=== PATIENT | female | born 1940 | race African-American/Black ===

== ENCOUNTER 2024-09-11 07:57 | Outpatient (CLI) | payer MEDICARE, SELFPAY ==
--- OUTSIDE RECORDS SUMMARY | 2024-09-18 11:35 | XMS_ITS | Data Portability ---
Author Organization [facility], Main Office Address [address] [place] [address] Assessment Encounter Date Assessment Date Assessment LastModified by Organization Details LastModified Time 07/03/2024 07/03/2024 Time spent with patient included: preparing to see patient by reviewing tests, obtaining and reviewing history, medical examination and evaluation, counseling and educating the patient, ordering medications and tests, documenting clinical information in EHR, independently interpreting results and communicating results to the patient for a total of 52 minutes. Not available 07/03/2024 12:07:29 Plan of Treatment Reminders Order Date Submit Date Provider Last Modified By Organization Details Last Modified Time Details Appointments None recorded. Lab None recorded. Referral None recorded. Procedures None recorded. Surgeries None recorded. Imaging home sleep study - Please call patient to arrange. [email or web address] [facility] ([facility]), [address] [place] [address], [address], 12:21:26 Medication Orders None recorded. Patient TargetsNo targets recorded. Patient Instructions Encounter Date Encounter Id Patient Instructions Last Modified By Organization Details Last Modified Time 07/03/2024 [id number] complete PFT w/ post bronchodilator spirometry* - Please call patient to schedule. WENDI [id number] per [facility] payor website, ref #[id number]. MYKE Not available 08/03/2024 11:02:29 Reason for Referral None Reported. Results Created Date Observation Date Name Description Value Unit Range Abnormal Flag Note LastModifiedBy Organization Detail LastModifiedTime 07/05/20 24 06/17/2024 CT, face, w/o contr ast No observ ation record ed. [email or web address] Not Available 2023 13:57:08 11/21/20 24 07/17/2024 compl ete PFT w/ post [facility] hodil ator jojo metry * No observ ation record ed. [facility] [place] [id number] [facility] [address], [place], [address], 08/03/2024 11:02:29 Result Notes None recorded. Problems Name Problem SNOMED Code Status Onset Date Resolution Date Notes Provider Name and Address Organization Details Recorded Time Dyspnea on exertion 97971583 Active 024 Nano Doss NP [address], [address], [place], [address] , [employer] 11:35:49 Sleep apnea 46855225 Active 024 Nano Doss NP [address], [address], [place], [address] , [employer] 11:41:31 Problem Notes None recorded. Procedures Surgical History None recorded. Imaging Results Imaging Date Name Status LastModified by Organization Details LastModified Time 06/17/2024 CT, face, w/o contrast completed Information not available 07/05/2024 13:57:08 07/17/2024 complete PFT w/ post bronchodilator spirometry* completed [place] [address] [facility] [address], [place], [address], 08/03/2024 11:02:29 Procedure Notes None recorded. Medical Equipment None Reported. Allergies No known drug allergies Medications Name Sig Start Date Stop Date Status Note LastModified by Organization Details LastModified Time atorvastati n 20 mg tablet TAKE 1 TABLET BY MOUTH IN THE MORNING 2023 active Not Available Not Available Not Avai lable albuterol sulfate 2.5 mg/3 mL (0.083 %) solution for nebulizatio n INHALE 3 ML BY NEBULIZAT ION 3 TIMES A DAY active Not Available Not Available No t Available prednisone 20 mg tablet TAKE 2 TABLETS BY MOUTH DAILY FOR 4 DAYS 07/03 completed Not Available Not Available Not Available potassium chloride ER 10 mEq tablet,exte nded release TAKE 1 TABLET BY MOUTH EVERY DAY active Not Available Not Available No t Available chlorthalid one 25 mg tablet TAKE 1 TABLET BY MOUTH DAILY active Not Available Not Available No t Available tramadol 50 mg tablet TAKE 1 TABLET BY MOUTH TWICE A DAY NEEDED FOR PAIN 07/03 completed Not Available Not Available Not Available amlodipine 10 mg tablet TAKE 1 TABLET BY MOUTH EVERY DAY active Not Available Not Available No t Available docusate sodium 100 mg capsule TAKE 1 PILL IN THE MORNING AND 1 PILL IN THE EVENING NEEDED FOR CONSTIPAT ION. active Not Available Not Available No t Available hydroxyzine HCl 25 mg tablet TAKE 1 TABLET BY MOUTH AT BEDTIME NEEDED active Not Available Not Available No t Available methylpredn isolone 4 mg tablets in a dose pack FOLLOW PACKAGE DIRECTION S 07/03 completed Not Available Not Available Not Available albuterol sulfate HFA 90 mcg/actuati on aerosol inhaler INHALE 2 PUFFS BY MOUTH EVERY 4 HOURS active Not Available Not Available No t Available docusate sodium 250 mg capsule TAKE ONE BY MOUTH TWICE DAILY NEEDED FOR CONSTIPAT ION 07/03 completed Not Available Not Available Not Available memantine 10 mg tablet TAKE 1 TABLET BY MOUTH DAILY 07/03 completed Not Available Not Available Not Available Advair HFA 115 mcg-21 mcg/actuati on aerosol inhaler TAKE 2 PUFFS BY MOUTH TWICE A DAY active Not Available Not Available No t Available aspirin 81 mg capsule Take 1 capsule every day by oral route. active Not Available Not Available No t Available Vitals Date Recorded Body weight Body mass index (BMI) Body height Body temperature Heart rate Oxygen saturation Oxygen saturation in Arterial blood by Pulse oximetry Systolic blood pressure Diastolic blood pressure Provider Name and Address Organization Details Last Updated DateTime 4 08197.2 2 g 27.5 kg/m2 172.72 cm 98 [degF] 95 /min 95 % 95 % 112 mm[Hg] 62 mm[Hg] Shannon Coleman MA [facility] 11:24:49 Social History Question Answer Notes LastModified by Organizat ion Details LastModified Time Tobacco Smoking Status Never Smoker Shannon Coleman MA null, [facility] 07/03/2024 11:20:38 What Is Your Level Of Alcohol Consumption? Moderate Information not available 07/03/2024 What Is Your Level Of Caffeine Consumption? Moderate Information not available 07/03/2024 In The 14 Days Before Symptom Onset, Have You Had Close Contact With A Laboratory-confir med COVID-19 While That Case Was Ill? No Information not available 07/03/2024 In The 14 Days Before Symptom Onset, Have You Had Close Contact With A Person Who Is Under Investigation For COVID-19 While That Person Was Ill? No Information not available 07/03/2024 Are You Currently Employed? No Retired Information not available 07/03/2024 What Type Of Diet Are You Following? REGULAR Information not available 07/03/2024 Do You Have An Electrostatic Air Filter? No Information not available 07/03/2024 Do You Have A Humidifier? No Information not available 07/03/2024 Do You Have Moisture Problems In Your Home? No Information not available 07/03/2024 What Was The Date Of Your Most Recent Tobacco Screening? 07/03/2024 Information not available 07/03/2024 Do You Have Any Pets? No Information not available 07/03/2024 Do You Use Your Seat Belt Or Car Seat Routinely? Yes Information not available 07/03/2024 Do You Have Smoke And Carbon Monoxide Detectors In Your Home? Yes Information not available 07/03/2024 Are You Passively Exposed To Smoke? No Information no t available 07/03/2024 Do You Feel Stressed (tense, Restless, Nervous, Or Anxious, Or Unable To Sleep At Night)? [id number] Information not available 07/03/2024 Do You Use Any Illicit Or Recreational Drugs? No Information not available 07/03/2024 Do You Use Sunscreen Routinely? No Information not available 07/03/2024 Have You Recently Traveled Abroad? No Information not available 07/03/2024 Do You Have Any Dietary Restrictions? Yes Information not available 07/03/2024 Sex: Unknown Functional Status Question Answer Note LastModified by Organizat ion Details LastModified Time What is your exercise level? Occasional Information not available 07/03/2024 Mental Status None recorded. Family History Nothing Reported. Medical History No medical history recorded. Gynecological HistoryNo gynecological history recorded. Obstetrics History GPAL:G 0 P 0 0 0 0 Past Encounters Encounter ID Performer Location Encounter Start Date Encounter Closed Date Diagnosis/Indication Diagnosis SNOMED-CT Code Diagnosis ICD10 Code Diagnosis Note [id number] Nano DossJARRETT [facility] [address] [place] [address] 07/03/2024 10:47:40 07/04/2024 15:23:46 Dyspnea on exertion 17730523 R06.09 Continue use of inhaler/ne b prnPFT for baseline-w ill try to get old records for pft. labs and CXRDecline labs-will try to obtain old lab work to check EOS Sleep apnea 61301732 G47 .30 G47.33 G47.34 Home sleep study order todayDiscu ssed sleep hygeineAdv ised good sleep habits and patterns:- Set a goal for at least 7 to 8 hours of sleep time per day-Use the bed mainly for sleep and to go to bed only when tired. If unable to fall asleep after 30 minutes, patient should get out of bed but should not engage in any activity that requires sustained mental alertness. -Maintain a bedtime and wake-up time even on weekends or day off of work.-Avoi d excessive naps during the daytime. If a nap is necessary, limit to no more than 30 minutes.-M inimize enviroment al noise, bright lights, and extremties in bedroom temperatur es.-Avoid alcohol, caffeinate d beverages, and nicotine products for at least 6 hours prior to bedtime.-A void strenuous exercise and large meals for at least 4 hours prior to bedtime.-D iscussed reportable signs and symptoms of concern Health Concerns Section Related Observation LastModified by Organization Detai ls LastModified Time None Recorded Concern Status LastModified by Organization Details LastModified Time None Recorded Advance Directives Directive None Recorded Payers Encounter Date Sequence Insurance Name Policy Number Policy Marie Covered Member ID Marie Member ID Guarantor Name 07/03/2024 1 [facility] (MEDICARE REPLACEMENT/A DVANTAGE - HMO) [id number] Heidi Barker [id number] Heidi Barker Notes Date Note Type Note Provider Name and Address Organization Details Recorded Time 07/03/2024 text/html COPDReported bypatient.Severity:mil d; uses nebulizer/inhaler an average of 3 times/week lately Duration:attacks are infrequent Onset/Timing:intermitt ent Modifying Factors:relieved with rest Associated Symptoms:no excessive daytime sleepiness; no arousals from sleep; no decrease in exercise capacity; no coughing up sputum; no cough; no fever; no wheezing; no weight loss; no depression;snoring;dys pnea exertional;fatigueNote s:family with patient today notes that feel more sleep apnea related-when discussing with patient she notes she only uses her inhaler in the morning due to the feeling she is sob at that time. She notes a [facility] of 2, notes she doesn't use her neb or inhaler unless it is first thing in the morning. No difficulty dressing or feeding herself.Obstructive Sleep ApneaReported bypatient.Severity:wor sening Timing:gradual; daily Duration:frequent Context:hypertension; gastroesophageal reflux disease; observed apnea Associated Symptoms:no morning headache; no postnasal drip; no dysphagia; no night sweats; no suddenly falling asleep during the day; no napping; no impaired work performance; no nasal congestion; no hyponasal speech; no mouth breathing; no hyperactivity; normal concentration; no irritability;morning dry mouth;awakening short of breath;daytime sleepiness;loud snoring;gasping for air;witnessed apnea;amnesiaNotes:Has been waking up for years choking and gasping-has even went to ER due to feeling like she can't get her breath-she does have an inhaler that she uses most only when waking, 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 Nano Doss NP [address] [facility] [address], [place], [address], [facility] 07/03/2024 12:08:32 OBGyn Episode No OBEpisode recorded.
--- OUTSIDE RECORDS SUMMARY | 2024-09-18 11:35 | XMS_ITS | Continuity of Care Document ---
Author Organization [facility] [place] Address [address] [address] Assessment Encounter Date Assessment Date Assessment LastModified by Organization Details LastModified Time 07/03/2024 07/03/2024 Time spent with patient included: preparing to see patient by reviewing tests, obtaining and reviewing history, medical examination and evaluation, counseling and educating the patient, ordering medications and tests, documenting clinical information in EHR, independently interpreting results and communicating results to the patient for a total of 52 minutes. [email or web address] Not available 07/03/2024 12:07:29 Plan of Treatment Reminders Order Date Submit Date Provider Last Modified By Organization Details Last Modified Time Details Appointments None recorded. Lab None recorded. Referral None recorded. Procedures None recorded. Surgeries None recorded. Imaging home sleep study - Please call patient to arrange. [email or web address] [facility] ([facility]), [address] [place] [address], [address], 12:21:26 Medication Orders None recorded. Patient TargetsNo targets recorded. Patient Instructions Encounter Date Encounter Id Patient Instructions Last Modified By Organization Details Last Modified Time 07/03/2024 [id number] complete PFT w/ post bronchodilator spirometry* - Please call patient to schedule. WENDI [id number] per [facility] payor website, ref #[id number]. MYKE Not available 08/03/2024 11:02:29 Reason for Referral None Reported. Results Created Date Observation Date Name Description Value Unit Range Abnormal Flag Note LastModifiedBy Organization Detail LastModifiedTime 07/05/2006/17/2024 CT, face, w/o contr ast No observ ation record ed. [email or web address] Not Available 2023 13:57:08 08/03/20 24 07/17/2024 compl ete PFT w/ post [facility] hodil ator jojo metry * No observ ation record ed. [facility] [address], [place], [address], 08/03/2024 11:02:29 Result Notes None recorded. Problems Name Problem SNOMED Code Status Onset Date Resolution Date Notes Provider Name and Address Organization Details Recorded Time Dyspnea on exertion 87798116 Active 024 Nano Doss NP [address], [address], [place], [address] , [facility] 11:35:49 Sleep apnea 63013275 Active 024 Nano Doss NP [address], [place], [address] , [facility] 11:41:31 Problem Notes None recorded. Medical Equipment None Reported. [...] Address Organization Details Last Updated DateTime 4 13787.2 2 g 27.5 kg/m2 172.72 cm 98 [degF] 95 /min 95 % 95 % 112 mm[Hg] 62 mm[Hg] Shannon Coleman MA [facility] 11:24:49 Social History Question Answer Notes LastModified by Organizat ion Details LastModified Time Tobacco Smoking Status Never Smoker Shannon Coleman MA null, [facility] 07/03/2024 11:20:38 What Is Your Level Of [...] Anxious, Or Unable To Sleep At Night)? [id number] Information not available 07/03/2024 Do You Use [...] SNOMED-CT Code Diagnosis ICD10 Code Diagnosis Note [id number] Nano Doss NP [facility] Pulmonolo gy [address] [address] 07/03/2024:47:40 07/04/2024 15:23:46 Dyspnea on exertion 24862307 R06.09 Continue use of inhaler/ne b prnPFT for baseline-w ill try to get old records for pft. labs and CXRDecline labs-will try to obtain old lab work to check EOS Sleep apnea 02365285 G47 .30 G47.33 G47.34 Home sleep study [...] by Organization Details LastModified Time None Recorded Payers Encounter Date Sequence Insurance Name Policy Number Policy Marie Covered Member ID Marie Member ID Guarantor Name 07/03/[address] 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 Nano Doss NP [address] [facility], [place] [address], [place], [address], [facility] [email or web address] 07/03/2024 12:08:32 OBGyn Episode No OBEpisode recorded.
--- OUTSIDE RECORDS SUMMARY | 2024-09-18 11:36 | XMS_ITS | Encounter Summary ---
Author Organization [facility] Address [address] [place] [address] Care Team Providers Care Airline Customer Service Agent Name Role Phone Stephen Anguiano MD Primary Care Provider Encounter Details Date Type Department Care Team (Latest Contact Info) Description 07/10/2024 Travel Social History Tobacco Use Types Packs/Day Years Used Date Smoking Tobacco: Never Alcohol Use Standard Drinks/Week Comments No 0 (1 standard drink = 0.6 oz pur e alcohol) Sex and Gender Information Value Date Recorded Sex Assigned at Not on file Gender Identity Not on file Sexual Orientation Not on file documented as of this encounter Plan of Treatment Not on file documented as of this encounter Visit Diagnoses Not on filedocumented in this encounter Care Teams Airline Customer Service Agent Relationship Specialty Start Date End Date Stephen Anguiano MD [address] [place] [address] PCP - General 12/27/15 documented as of this encounter
--- OUTSIDE RECORDS SUMMARY | 2024-09-18 11:36 | XMS_ITS | Encounter Summary ---
Author Organization [facility] Address [facility]. [place], [place] [address] [place] [id number] Care Team Providers Care Batch Dumper Name Role Phone None, Provider Primary Care Provider Unavaila ble Reason for Visit * Reason Comments Shortness Of Breath Cough Encounter Details Date Type Department Care Team (Late st Contact Info) Description 03/03/2024 8:56 AM CDT - 03/03/2024 12:24 PM CDT Emergency [facility] [place] [address] Blanca Gutierrez MD [address] [place] [address] [id number] Shortness Of Breath ; Cough Discharge Disposition: Home or Self Care (Routine Discharge) Social History Tobacco Use Types Packs/Day Years Used Date Smoking Tobacco: Never Smokeless Tobacco: Former Chew Tobacco Cessation:Counseling Given: Not Answered Comments No Sex and Gender Information Value Date Recorded Sex Assigned at Not on file Legal Sex Female 8:45 AM CDT Gender Identity Not on file Sexual Orientation Not on file documented as of this encounter Last Filed Vital Signs Vital Sign Reading Time Taken Comments Blood Pressure 141/70 03/03/2024 12:00 PM CDT Pulse 88 03/03/2024 12:00 PM CDT Temperature 37 ??C (98.6 ??F) 03/03/2024 8:51 AM CDT Respiratory Rate 14 03/03/2024 12:00 PM CDT Oxygen Saturation 98% 03/03/2024 12:00 PM CDT Inhaled Oxygen Concentration - - Weight 86.2 kg (190 lb) 03/03/2024 8:51 AM CDT Height 172.7 cm (5' 8 ) 03/03/2024 8:51 AM CDT Body Mass Index 28.89 03/03/2024 8:51 AM CDT documented in this encounter Discharge Instructions * Attachments The following attachments cannot be sent through Care Everywhere. * Chronic Obstructive Pulmonary Disease (COPD) Discharge Instructions (Pashto) documented in this encounter Medications at Time of Discharge predniSONE (DELTASONE) 20 MG tablet Take 2 tablets (40 mg total) by mouth daily for 5 days. 10 tablet 03/03/2024 03/08/2024 documented as of this encounter ED Notes * Mayelin Akins RN - 03/03/2024 12:24 PM CDT DC papers reviewed with pt & pts daughter. All questions/concerns addressed prior to dc. * Blanca Gutierrez MD - 03/03/2024 9:11 AM CDT Chief Complaint Chief Complaint Patient presents with Shortness Of Breath Cough History of Present Illness This patient is an 83yo female with PMH HTN, COPD (no home O2) who presents to the ED for evaluation of a cough and dyspnea. She developed a worsening nonproductive cough and intermittent dyspnea yesterday. These were worse today which prompts her visit. Otherwise, the patient notes tightness in her chest when she coughs and a pain to the right TMJ (chronic daily issue) and a headache but denies fever/chills, abdominal pain, or GI symptoms. Medical History ALLERGIES: Review of patient's allergies indicates: No Known Allergies MEDICATIONS: Prior to Admission medications Medication Sig Start Date End Date Taking? Authorizing Provider predniSONE (DELTASONE) 20 MG tablet Take 2 tablets (40 mg total) by mouth daily for 5 days. Yes Blanca Gutierrez MD PAST MEDICAL HISTORY: Past Medical History: Diagnosis Date Constipation COPD (chronic obstructive pulmonary disease) ([facility] H[facility]/HCC) Dementia without behavioral disturbance ([facility]) Hypercholesteremia Hypertension PAST SURGICAL HISTORY: History reviewed. No pertinent surgical history. FAMILY HISTORY: No family history on file. SOCIAL HISTORY: Social History Tobacco Use Smoking status: Never Smokeless tobacco: Former Types: Chew Review of Systems Review of Systems Constitutional: Negative. HENT: Negative. Respiratory: Positive for cough, chest tightness and shortness of breath. Cardiovascular: Positive for chest pain. Negative for palpitations and leg swelling. Gastrointestinal: Negative. Musculoskeletal: Negative. Skin: Negative. Neurological: Positive for headaches. Negative for dizziness, syncope, facial asymmetry, speech difficulty, weakness, light-headedness and numbness. All other systems reviewed and are negative. Physical Exam Filed Vitals: 03/03/24 1005 03/03/24 1030 03/03/24 1130 03/03/24 1200 BP: (!) 160/64 130/83 (!) 158/72 (!) 141/70 Pulse: 76 77 76 88 Resp: 16 18 13 14 Temp: TempSrc: SpO2: 98% 99% 97% 98% Weight: Height: Physical Exam Vitals and nursing note reviewed. Constitutional: Appearance: Normal appearance. She is well-developed. HENT: Head: Normocephalic and atraumatic. Nose: Nose normal. Mouth/Throat: Mouth: Mucous membranes are moist. Eyes: Conjunctiva/sclera: Conjunctivae normal. Pupils: Pupils are equal, round, and reactive to light. Neck: Vascular: No JVD. Trachea: No tracheal deviation. Cardiovascular: Rate and Rhythm: Normal rate and regular rhythm. Heart sounds: Normal heart sounds. Pulmonary: Effort: Pulmonary effort is normal. Breath sounds: Normal breath sounds. Abdominal: General: There is no distension. Palpations: Abdomen is soft. There is no mass. Tenderness: There is no abdominal tenderness. There is no guarding or rebound. Musculoskeletal: General: Normal range of motion. Cervical back: Normal range of motion and neck supple. Skin: General: Skin is warm and dry. Capillary Refill: Capillary refill takes less than 2 seconds. Neurological: General: No focal deficit present. Mental Status: She is alert and oriented to person, place, and time. Sensory: No sensory deficit. Motor: No weakness. Diagnostic Studies / Procedures ELECTROCARDIOGRAMS: I have interpreted the patient's EKG timed 09:05 as NSR at rate of [address]/T changes. No old EKG available for comparison. I have interpreted the patient's EKG timed 11:25 as NSR at rate of [address]/T changes. No significant change compared with previous. Results for orders placed or performed during the hospital encounter of 03/03/24 [address] 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 No ischemic changes Consider Left Atrial Abnormality ECG 12 lead Narrative [facility] [address] [facility] Test Date: 2024-03-03 Pat Name: HEIDI BARKER Department: 41 Room: [id number] Gender: Female Commodities Trader: [id number] : 1940 Requested By: BLANCA GUTIERREZ Order Number: [id number] Reading MD: Raghu Xiao Measurements Intervals [place] Rate: 72 P: 2 TN: 190 QRS: 61 QRSD: 97 T: 79 QT: 411 QTc: 453 Interpretive Statements SINUS RHYTHM Compared to ECG 03/03/2024 09:05:49 Sinus arrhythmia no longer present First degree AV block no longer present No ischemic changes Preliminary EKG Interpretation by Juan Antonio Gutierrez M.D. LABORATORY STUDIES: Results for orders placed or performed during the hospital encounter of 03/03/24 CBC W/DIFF AUTOMATED Result Value Ref Range WBC 7.06 4.5 - 11.0 x10'3/uL RBC 4.61 4.20 - 5.40 x10'6/uL HGB 13.8 12.0 - 16.0 G/DL HCT 42.7 38.0 - 48.0 % MCV 92.6 81.0 - 99.0 FL MCH 29.9 27.0 - 31.0 PG MCHC 32.3 32.0 - 36.0 G/DL RDW 14.3 11.5 - 14.5 % PLT 281 130 - 400 x10'3/uL MPV 11.4 9.3 - 12.2 FL DIFFERENTIAL TYPE AUTOMATED DIFFERENTIAL NEUTROPHILS 41.9 % LYMPHOCYTES 36.8 % MONOCYTES 5.9 % EOSINOPHILS 13.7 % BASOPHILS 1.4 % IMMATURE GRANS 0.3 % ABS. NEUTROPHILS 2.95 1.80 - 7.70 x10'3/uL ABS. LYMPHOCYTES 2.60 1.00 - 4.80 x10'3/uL ABS. MONOCYTES 0.42 0.24 - 0.86 x10'3/uL ABS. EOSINOPHILS 0.97 (H) 0.04 - 0.36 x10'3/uL ABS. BASOPHILS 0.10 (H) 0.01 - 0.08 x10'3/uL ABS. IMMATURE GRANULOCYTES 0.02 0.00 - 0.49 x10'3/uL PROTIME/INR, VENOUS Result Value Ref Range PROTIME 10.9 10.2 - 12.9 SEC INR 0.9 PARTIAL THROMBOPLASTIN TIME,PTT Result Value Ref Range PTT 30.2 25.1 - 36.5 SEC COMPREHENSIVE METABOLIC PANEL Result Value Ref Range GLUCOSE 100 (H) 70 - 99 MG/DL BUN 15 7 - 18 MG/DL CREATININE S/P/B 0.91 0.55 - 1.02 MG/DL SODIUM S/P/B 143 136 - 145 MMOL/L POTASSIUM S/P/B 3.5 3.5 - 5.1 MMOL/L CHLORIDE S/P/B 110 (H) 100 - 108 MMOL/L CO2 27.4 21 - 32 MMOL/L CALCIUM S/P/B 9.7 8.5 - 10.1 MG/DL BILIRUBIN TOTAL S/P/B 0.8 0.2 - 1.2 MG/DL TOTAL PROTEIN S/P/B 7.1 6.4 - 8.2 G/DL ALBUMIN S/P/B 3.6 3.4 - 5.0 G/DL AST 25 15 - 37 U/L ALT 31 14 - 55 U/L ALKALINE PHOSPHATASE S/P/B 68 50 - 136 U/L ANION GAP 5.6 5 - 15 MMOL/L BUN CREATININE RATIO 16.4 6 - 26 A/G RATIO 1.0 1.0 - 2.0 RATIO GFR ESTIMATE 62 (L) >90 ML/MIN/1.73 M2 TROPONIN, QUANT Result Value Ref Range TROPONIN I HIGH SENSITIVITY 10 <54 ng/L PRO-BRAIN NATRIURETIC PEPTIDE Result Value Ref Range PRO-B TYPE NATRIURETIC PEPTIDE 56 <450 PG/ML MAGNESIUM Result Value Ref Range MAGNESIUM 2.2 1.8 - 2.4 MG/DL TSH W/REFLEX Result Value Ref Range TSH 3.400 0.358 - 3.74 uIU/ML TROPONIN, QUANT Result Value Ref Range TROPONIN I HIGH SENSITIVITY 13 <54 ng/L IMAGING STUDIES XR CHEST PORTABLE Final Result by User, [id number] (03/03 940) EXAMINATION: CHEST RADIOGRAPH SINGLE VIEW Exam date/time: 03/03/2024 9:14 AM Reason For Exam: Shortness of breath Comparison: None Technique: Upright AP view of the chest Findings: Heart size normal. Proximal airways unremarkable. No suspicious pulmonary lesion, pneumothorax, or pleural effusion. Atherosclerosis. Calcified granulomas indicate healed granulomatous disease. =====IMPRESSION:===== No acute findings. Ordered By: CORRINA HERNANDEZ Interpreted By: Kilo Davis, 03/03/2024 9:29 AM ED Course / Medical Decision Making The patient rested comfortably throughout her ED stay on room air. She appears well. Diagnostic studies are unremarkable. I suspect a mild COPD exacerbation. We will plan for discharge home with a short course of prednisone and primary care followup as needed. Medical Decision Making Problems Addressed: COPD exacerbation ([facility]): acute illness or injury with systemic symptoms Amount and/or Complexity of Data Reviewed Independent Historian: Details: The patient's daughter provides a large portion of the HPI. Labs: ordered. Decision-making details documented in ED Course. Details: Negative troponin. Radiology: ordered. Decision-making details documented in ED Course. Details: No radiographic cause of the patient's symptoms. ECG/medicine tests: ordered and independent interpretation performed. Decision- making details documented in ED Course. Details: No evidence of ischemia or arrhythmia. Risk Prescription drug management. Clinical Impression COPD exacerbation ([facility]) (Primary) Disposition: Discharge Blanca Gutierrez MD 03/06/24 2256 * Corrina Hernandez PA-C - 03/03/2024 8:56 AM CDTSummary: [place], [place] EMERGENCY DEPARTMENT ENCOUNTER Medical Screening Examination 03/03/24 8:56 AM Chief Complaint : Shortness Of Breath and Cough HPI : Heidi Barker is a 83-year-old female who presents c/o sob. Albuterol without relief Vital Signs: Filed Vitals: 03/03/24 0851 BP: (!) 167/102 Pulse: 98 Resp: 20 Temp: 98.6 ??F (37 ??C) TempSrc: Oral SpO2: 98% Weight: 86.2 kg (190 lb) Height: 1.727 m (5' 8 ) Physical exam: A brief physical exam was completed to facilitate/expedite patient care. Hansen findings include: stable Plan: Labs EKG & Imaging was ordered to facilitate patient care. CORRINA HERNANDEZ PA-C 03/03/2024 Corrina Hernandez PA-C 03/03/24 0856 Cosigned by Blanca Gutierrez MD at 03/06/2024 6:44 PM CDT * Minerva Ritchie RN - 03/03/2024 8:50 AM CDT Patient to ED with c/o SOB since yesterday. Patient has hx of COPD--took 3 breathing treatments yesterday with some relief. Patient reports worsening of sx this am. Denies fevers. Stated nonproductive cough. documented in this encounter Plan of Treatment Not on file documented as of this encounter Procedures Procedure Name Priority Date/Time Associated Diagnosis Comments ECG 12-LEAD Routine 03/03/2024 11:25 AM CDT TROPONIN, QUANT STAT 03/03/2024 11:22 AM CDT XR CHEST PORTABLE STAT 03/03/2024 9:2 8 AM CDT TSH W/REFLEX STAT 03/03/2024 9:23 AM CDT PRO-BRAIN NATRIURETIC PEPTIDE STAT 03/03/2024 9:23 AM CDT PARTIAL THROMBOPLASTIN TIME,PTT STAT 03/03/2024 9:23 AM CDT PROTHROMBIN TIME, VENOUS STAT 03/03/2024 9:23 AM CDT COMPREHENSIVE METABOLIC PANEL STAT 03/03/2024 9:23 AM CDT CBC W/DIFF AUTOMATED STAT 03/03/2024 9:23 AM CDT TROPONIN, QUANT STAT 03/03/2024 9:23 AM CDT MAGNESIUM STAT 03/03/2024 9:23 AM CDT ECG 12-LEAD Routine 03/03/2024 9:05 AM CDT documented in this encounter Results * ECG 12 lead (03/03/2024 11:25 AM CDT) 03/03/2024 11:2 5 AM CDT Narrative [facility] - 03/03/2024 4:32 PM CDT ?[facility] ? [address], [place] ? Test Date: ?2024-03-03 Pat Name: ? EATHER KASSANDRA ?Department: ?? 41 ? Room: ? [id number] Gender: ? Female ? 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 [id number] : ?1940 ? Requested By: BLANCA WEEMSFER Order Number: [id number] ? Reading MD: ?? Pouyan Arman ? Measurements Intervals ?[place] ? Rate: ? 72 ? P: ?2 TN: ? 190 ?QRS: ?61 QRSD: ? 97 ? T: ?79 QT: ? 411 ? QTc: ?453 ? Interpretive Statements SINUS RHYTHM Compared to ECG 03/03/2024 09:05:49 Sinus arrhythmia no longer present First degree AV block no longer present No ischemic changes Preliminary EKG Interpretation by Juan Antonio Gutierrez M.D. 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 us Blanca Gutierrez MD ECG ORDERABLES Final Re sult [facility] ([facility]) RAD * TROPONIN, QUANT (03/03/2024 11:22 AM CDT) Pathologist [facility] TROPONIN I HIGH SENSITIVITY 13 <54 ng/L 03/03/2024 11:55 AM CDT [facility] Comment: HIGH DOSES OF BIOTIN, TROPONIN-SPECIFIC AUTOANTIBODIES, AND ANTIBODY THERAPY CONTAINING HAMA MAY INTERFERE WITH THIS TEST RESULT. CORRELATION TO CLINICAL HISTORY AND PRESENTATION RECOMMENDED. 03/03/2024 11:2 2 AM CDT Blanca Gutierrez MD LABORATORY Final Re sult [facility] [address] [place] [address], * XR CHEST PORTABLE (03/03/2024 9:28 AM CDT) Anatomical Region Laterality Modality Chest Radiographic Rachel ging 03/03/2024 9:29 AM CDT Impressions 03/03/2024 9:39 AM CDT =====IMPRESSION:===== No acute findings. Ordered By: CORRINA HERNANDEZ Interpreted By: Kilo Davis, 03/03/2024 9:29 AM Narrative 03/03/2024 9:39 AM CDT EXAMINATION: CHEST RADIOGRAPH SINGLE VIEW Exam date/time: 03/03/2024 9:14 AM Reason For Exam: ??Shortness of breath ?? Comparison: None Technique: Upright AP view of the chest Findings: ??Heart size normal. Proximal airways unremarkable. No suspicious pulmonary lesion, pneumothorax, or pleural effusion. Atherosclerosis. Calcified granulomas indicate healed granulomatous disease. Procedure Note Kilo Davis MD - 03/03/2024 EXAMINATION: CHEST RADIOGRAPH SINGLE VIEW Exam date/time: 03/03/2024 9:14 AM Reason For Exam: Shortness of breath Comparison: None Technique: Upright AP view of the chest Findings: Heart size normal. Proximal airways unremarkable. No suspiciouspulmonary lesion, pneumothorax, or pleural effusion. Atherosclerosis. Calcified granulomas indicate healed granulomatous disease. =====IMPRESSION:===== No acute findings. Ordered By: CORRINA HERNANDEZ Interpreted By: Kilo Davis, 03/03/2024 9:29 AM us Corrina Hernandez PA-C GENERAL IMAGING Final Resul t * TSH W/REFLEX (03/03/2024 9:23 AM CDT) TSH 3.400 0.358 - 3.74 uIU/ML 03/03/2024 10:05 AM CDT [facility] Comment: HIGH DOSES OF BIOTIN MAY INTERFERE WITH THIS TEST RESULT. CORRELATION TO CLINICAL HISTORY AND PRESENTATION RECOMMENDED. FREE T4 NOT INDICATED 03/03/2024 9:23 AM CDT us Corrina Hernandez PA-C LABORATORY Final Resul t Performing Organization Address [facility] Co de Phone Number [facility] [address] [place] [address], * MAGNESIUM (03/03/2024 9:23 AM CDT) MAGNESIUM 2.2 1.8 - 2.4 MG/DL 03/03/2024 10:05 AM CDT [facility] 03/03/2024 9:23 AM CDT us Corrina Hernandez PA-C LABORATORY Final Resul t Performing Organization Address [facility] Co de Phone Number [facility] [address] [place] [address], [place] [phone] * PRO-BRAIN NATRIURETIC PEPTIDE (03/03/2024 9:23 AM CDT) PRO-B TYPE NATRIURETIC PEPTIDE 56 <450 PG/ML 03/03/2024 10:05 AM CDT [facility] Comment: CUT POINTS ESTABLISHED BY [employer] ON NT PROBNP (ICON) STUDY (2006). AGE INDEPENDENT: <300 PG/ML HAS A 99% NEGATIVE PREDICTIVE VALUE FOR EXCLUDING ACUTE CHF <50 YEARS: >450 PG/ML IS CONSISTENT WITH ACUTE CHF 50-75 YEARS: >900 PG/ML IS CONSISTENT WITH ACUTE CHF >75 YEARS: >1800 PG/ML IS CONSISTENT WITH ACUTE CHF IN PATIENTS WITH RENAL INSUFFICIENCY (GFR <60), >1200 PG/ML YIELDS A DIAGNOSTIC SENSITIVITY AND SPECIFICITY OF 89% AND 72% FOR ACUTE CHF. 03/03/2024 9:23 AM CDT Corrina Hernandez PA-C LABORATORY Final Resul t Performing Organization Address [facility] Co de Phone Number [facility] [address] [place] [address], [place] [phone] * TROPONIN, QUANT (03/03/2024 9:23 AM CDT) TROPONIN I HIGH SENSITIVITY 10 <54 ng/L 03/03/2024 10:05 AM CDT [facility] Comment: HIGH DOSES OF BIOTIN, TROPONIN-SPECIFIC AUTOANTIBODIES, AND ANTIBODY THERAPY CONTAINING HAMA MAY INTERFERE WITH THIS TEST RESULT. CORRELATION TO CLINICAL HISTORY AND PRESENTATION RECOMMENDED. 03/03/2024 9:23 AM CDT Corrina Hernandez PA-C LABORATORY Final Resul t Performing Organization Address City/[facility]/ZIP Co de Phone Number [facility] [address] [place] [address], [place] [phone] * (ABNORMAL) COMPREHENSIVE METABOLIC PANEL (03/03/2024 9:23 AM CDT) GLUCOSE 100(H) 70 - 99 MG/DL 03/03/2024 10:05 AM CDT [facility] BUN 15 7 - 18 MG/DL 03/03/2024 10:05 AM CDT [facility] CREATININE S/P/B 0.91 0.55 - 1.02 MG/DL 03/03/2024 10:05 AM T [facility] SODIUM S/P/B 143 136 - 145 MMOL/L 03/03/2024 10:05 AM [facility] POTASSIUM S/P/B 3.5 3.5 - 5.1 MMOL/L 03/03/2024 10:05 AM T [facility] CHLORIDE S/P/B 110(H) 100 - 108 MMOL/L 03/03/2024 10:05 AM T [facility] CO2 27.4 21 - 32 MMOL/L 03/03/2024 10:05 AM [facility] CALCIUM S/P/B 9.7 8.5 - 10.1 MG/DL 03/03/2024 10:05 AM [facility] BILIRUBIN TOTAL S/P/B 0.8 0.2 - 1.2 MG/DL 03/03/2024 10:05 AM [facility] Comment: THIS ASSAY IS NOT RECOMMENDED FOR PATIENTS UNDERGOING TREATMENT WITH ELTROMBOPAG DUE TO THE POTENTIAL FOR FALSELY ELEVATED RESULTS. TOTAL PROTEIN S/P/B 7.1 6.4 - 8.2 G/DL 03/03/2024 10:05 AM [facility] ALBUMIN S/P/B 3.6 3.4 - 5.0 G/DL 03/03/2024 10:05 AM [facility] AST 25 15 - 37 U/L 03/03/2024 10:05 AM [facility] ALT 31 14 - 55 U/L 03/03/2024 10:05 AM [facility] ALKALINE PHOSPHATASE S/P/B 68 50 - 136 U/L 03/03/2024 10:05 AM [facility] ANION GAP 5.6 5 - 15 MMOL/L 03/03/2024 10:05 AM CDT [facility] BUN CREATININE RATIO 16.4 6 - 26 03/03/2024 10:05 AM CDT [facility] A/G RATIO 1.0 1.0 - 2.0 RATIO 03/03/2024 10:05 AM CDT [facility] GFR ESTIMATE 62(L) >90 ML/MIN/1.7 3 M2 03/03/2024 10:05 AM CDT [facility] Comment: NOTE: eGFR is not calculated for patients <18 years of age. This is an estimated GFR calculation using the new CKD EPI creatinine equation without race and so does not require a correction factor for race. This estimated GFR should not be used for calculating drug doses. 03/03/2024 9:23 AM CDT us Corrina Hernandez PA-C LABORATORY Final Resul t [facility] [address] [place] [address], [place] [phone] * PARTIAL THROMBOPLASTIN TIME,PTT (03/03/2024 9:23 AM CDT) [facility] PTT 30.2 25.1 - 36.5 SEC 03/03/2024 12:01 PM CDT [facility] 03/03/2024 9:23 AM CDT us Corrina Hernandez PA-C LABORATORY Final Resul t [facility] [address] [place] [address], [place] [phone] * PROTIME/INR, VENOUS (03/03/2024 9:23 AM CDT) Pathologist [facility] PROTIME 10.9 10.2 - 12.9 SEC 03/03/2024 12:01 PM CDT [facility] INR 0.9 03/03/2024 12:01 PM CDT [facility] Comment: Recommended INR Therapeutic Goals: ??2.0-3.0 Routine Therapy ??2.5-3.5 Mechanical Prosthetic Valves (High Risk) 03/03/2024 9:23 AM CDT Corrina Hernandez PA-C LABORATORY Final Resul t [facility] [address] [place] [address], [place] [phone] * (ABNORMAL) CBC W/DIFF AUTOMATED (03/03/2024 9:23 AM CDT) [facility] WBC 7.06 4.5 - 11.0 x10'3/uL 03/03/2024 9:38 AM CDT [facility] RBC 4.61 4.20 - 5.40 x10'6/uL 03/03/2024 9:38 AM CDT [facility] HGB 13.8 12.0 - 16.0 G/DL 03/03/2024 9:38 AM CDT [facility] HCT 42.7 38.0 - 48.0 % 03/03/2024 9:38 AM CDT [facility] MCV 92.6 81.0 - 99.0 FL 03/03/2024 9:38 AM CDT [facility] MCH 29.9 27.0 - 31.0 PG 03/03/2024 9:38 AM CDT [facility] MCHC 32.3 32.0 - 36.0 G/DL 03/03/2024 9:38 AM CDT [facility] RDW 14.3 11.5 - 14.5 % 03/03/2024 9:38 AM CDT [facility] PLT 281 130 - 400 x10'3/uL 03/03/2024 9:38 AM CDT [facility] MPV 11.4 9.3 - 12.2 FL 03/03/2024 9:38 AM CDT [facility] DIFFERENTIAL TYPE AUTOMATED DIFFERENTIAL 03/03/2024 9:38 AM CDT [facility] NEUTROPHILS % 41.9 % 03/03/2024 9:38 AM CDT [facility] LYMPHOCYTES % 36.8 % 03/03/2024 9:38 AM CDT [facility] MONOCYTES % 5.9 % 03/03/2024 9:38 AM CDT [facility] EOSINOPHILS 13.7 % 03/03/2024 9:38 AM CDT [facility] BASOPHILS 1.4 % 03/03/2024 9:38 AM CDT [facility] IMMATURE GRANS % 0.3 % 03/03/20 9:38 AM CDT [facility] ABS. NEUTROPHILS 2.95 1.80 - 7.70 x10'3/uL 03/03/2024 9:38 AM CDT [facility] ABS. LYMPHOCYTES 2.60 1.00 - 4.80 x10'3/uL 03/03/2024 9:38 AM CDT [facility] ABS. MONOCYTES 0.42 0.24 - 0.86 x10'3/uL 03/03/2024 9:38 AM CDT [facility] ABS. EOSINOPHILS 0.97(H) 0.04 - 0.36 x10'3/uL 03/03/2024 9:38 AM CDT [facility] ABS. BASOPHILS 0.10(H) 0.01 - 0.08 x10'3/uL 03/03/2024 9:38 AM CDT [facility] ABS. IMMATURE GRANULOCYTES 0.02 0.00 - 0.49 x10'3/uL 03/03/2024 9:38 AM CDT [facility] 03/03/2024 9:23 AM CDT us Corrina Hernandez PA-C LABORATORY Final Resul t [facility] [address] [place] [address], * ECG 12 lead (03/03/2024 9:05 AM CDT) 03/03/2024 9:05 AM CDT Narrative [facility] - 03/03/2024 4:31 PM CDT ?[facility] ? [address] [facility] ? Test Date: ?2024-03-03 Pat Name: ? HEIDI KASSANDRA ?Department: ?? 41 ? Room: ? Gender: ? Female ? 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 DK : ?1940 ? Requested By: CORRINA HERNANDEZ Order Number: [id number] ? Reading : ?? Raghu Xiao ? Measurements Intervals ?[place] ? Rate: ? 90 ? P: ?66 TN: ? 221 ?QRS: ?48 QRSD: ? 83 ? T: ?79 QT: ? 367 ? QTc: ?450 ? Interpretive Statements SINUS RHYTHM WITH SINUS ARRHYTHMIA WITH FIRST DEGREE AV BLOCK No previous ECG available for comparison Preliminary EKG Interpretation by Juan Antonio Gutierrez M.D. No ischemic changes Consider Left Atrial Abnormality Procedure Note Raghu Xiao MD - 03/03/[address] [facility] Test Date: 2024-03-03 Pat Name: HEIDI BARKER Department: 41 Room: Gender: Female Commodities Trader: CRUZITO : 1940 Requested By: CORRINA HERNANDEZ Order Number: [id number] Reading MD: Raghu Xiao Measurements Intervals [place] Rate: 90 P: 66 TN: 221 QRS: 48 QRSD: 83 T: 79 QT: 367 QTc: 450 Interpretive Statements SINUS RHYTHM WITH SINUS ARRHYTHMIA WITH FIRST DEGREE AV BLOCK No previous ECG available for comparison Preliminary EKG Interpretation by Juan Antonio Gutierrez M.D. No ischemic changes Consider Left Atrial Abnormality us Corrina Hernandez PA-C ECG ORDERABLES Final Resul t [facility] ([facility]) [facility] documented in this encounter Visit Diagnoses Diagnosis COPD exacerbation ([facility])- Primary Obstructive chronic bronchitis with exacerbation documented in this encounter Administered Medications Inactive Administered Medications - up to 3 most recent administrations Medication Order MAR Action Action Date Dose Rate Site methylPREDNISolone sodium succinate (SOLU-Medrol) injection 125 mg 125 mg, Intravenous, Once, 1 dose, On Wed03/03/24 at 0915, If ordered IV, administer into a vein over 3-15 minutes. Doses >= 2 mg/kg or 250mg should be given by infusion, unless the benefits of IV injection outweigh the risks (life-threatening shock) Given 03/03/2024 9:26 AM CDT 125 mg naproxen (NAPROSYN) tablet 500 mg 500 mg, Oral, Once, 1 dose, On Wed03/03/24 at 0915, Administer with food Given 03/03/2024 10:04 AM CDT 500 mg documented in this encounter Active and Recently Administered Medications Times are shown in CDT. Scheduled Medication Order 03/01/2024 03/02/2024 03/03/2024 methylPREDNISolone sodium succinate (SOLU-Medrol) injection 125 mg (COMPLETED) 125 mg, Intravenous, Once, 1 dose, On Wed03/03/24 at 0915, If ordered IV, administer into a vein over 3-15 minutes. Doses >= 2 mg/kg or 250mg should be given by infusion, unless the benefits of IV injection outweigh the risks (life-threatening shock) 0926 (Given - Provid er: Mayelin Akins RN) naproxen (NAPROSYN) tablet 500 mg (COMPLETED) 500 mg, Oral, Once, 1 dose, On Wed03/03/24 at 0915, Administer with food 1004 (Given - Provid er: Mayelin Akins RN) documented in this encounter Care Teams Batch Dumper Relationship Specialty Start Date End Date None, Provider, PCP - General UNKNOWN PHYSICIAN SPECIALTY 03/03/24 1 10/04/23 documented as of this encounter
--- OUTSIDE RECORDS SUMMARY | 2024-09-18 11:36 | XMS_ITS | Encounter Summary ---
Author Organization [facility] Address [facility]. [place], [place] [id number] [place] [id number] Care Team Providers Care Drama Teacher Name Role Phone None, Provider Primary Care Provider Unavaila ble Encounter Details Date Type Department Care Team (Latest Contact Info) Description 05/27/2024 Travel Social History Tobacco Use Types Packs/Day Years Used Date Smoking Tobacco: Never Passive Smoke Exposure: Never Smokeless Tobacco: Former Chew Alcohol Use Standard Drinks/Week Comments Yes 0 (1 standard drink = 0.6 oz pur e alcohol) 2-3 cans beer a day Comments No Sex and Gender Information Value Date Recorded Sex Assigned at Not on file Legal Sex Female 8:45 AM CDT Gender Identity Not on file Sexual Orientation Not on file documented as of this encounter Plan of Treatment Not on file documented as of this encounter Visit Diagnoses Not on filedocumented in this encounter Additional Health Concerns Infection Onset Date Last Indicated Resolved Time COVID-19 Rule Out 05/27/2024 05/27/2024 05/27/2024 10:24 AM CDT documented as of this encounter Care Teams Drama Teacher Relationship Specialty Start Date End Date None, Provider, PCP - General UNKNOWN PHYSICIAN SPECIALTY 03/03/24 1 10/04/23 documented as of this encounter
--- OUTSIDE RECORDS SUMMARY | 2024-09-18 11:36 | XMS_ITS | Encounter Summary ---
Author Organization [facility] Address Formerly [facility] [facility]. [place], [place] [address] [place] [id number] Care Team Providers Care Pourer Metal Name Role Phone Arti Gibbs NP Primary Care Provider [phone] Reason for Referral * Imaging (Emergency) - New Request Specialty Diagnoses / Procedures Referred By Ant moffett Referred To Contact RADIOLOGY Procedures CTA CHEST PE PROTOCOL Wisam Robles PA [address] [place] [address] Phone: tel: fax: Referral ID Status Reason Start Date Expiration Date V isits Requested Visits Authorized [id number] New Request 08/05/2024 08/05/2025 1 1 INSPECTOR Reason for Visit * Reason Comments Shortness Of Breath Encounter Details Date Type Department Care Team (Late st Contact Info) Description 08/05/2024 11:53 AM MEAT INSPECTOR - 08/05/2024 4:51 PM MEAT INSPECTOR Emergency [facility] [place] [address] Wisam Robles PA [address] [place] [address] Shortness Of Breath Discharge Disposition: Home or Self Care (Routine [...] Sign Reading Time Taken Comments Blood Pressure 131/67 08/05/2024 11:44 AM MEAT INSPECTOR Pulse 100 08/05/2024 11:44 AM MEAT INSPECTOR Temperature 37.1 ??C (98.8 ??F) 08/05/2024 11:[address] Respiratory Rate 20 08/05/2024 11:44 AM MEAT INSPECTOR Oxygen Saturation 100% 08/05/2024 11:44 AM MEAT INSPECTOR Inhaled Oxygen Concentration - - Weight 83 kg (182 lb 15.7 oz) 08/05/2024 11:47 A M MEAT INSPECTOR Height 164 cm (5' 4.57 ) 08/05/2024 11:47 AM MEAT INSPECTOR Body Mass Index 30.86 08/05/2024 11:47 AM MEAT INSPECTOR documented in this encounter Discharge Instructions * Discharge Instructions* FREDIS Crocektt - 08/05/2024 4:08 PM MEAT INSPECTOR Take medication as prescribed. Follow-up with your primary care provider in 5 to 7 days. Return emergency department symptoms worsen or new concerns. INSPECTOR * Attachments The following attachments cannot be sent through Care Everywhere. * Chronic Obstructive Pulmonary Disease (COPD) Discharge Instructions (Bengali) documented in this encounter Medications at Time of Discharge ADVAIR HFA 115-21 MCG/ACT inhaler Inhale 2 puffs into the lungs 2 (two) times daily. albuterol sulfate HFA 108 (90 Base) MCG/ACT inhaler Inhale 2 puffs into the lungs every 6 (six) hours as needed. 8 g 08/05/2024 amLODIPine (NORVASC) 10 MG tablet Take 1 tablet (10 mg total) by mouth daily. Aspirin 81 MG Cap Take 81 mg by mouth daily. atorvastatin (LIPITOR) 20 MG tablet Take 1 tablet (20 mg total) by mouth every morning. 07/03/2024 azithromycin (ZITHROMAX) 250 MG tablet Take 2 tablets by mouth on day one then 1 daily for four days. 6 tablet 08/05/2024 budesonide-formo terol (SYMBICORT) 160-4.5 MCG/ACT inhaler Inhale 2 puffs into the lungs 2 (two) times daily. 6 g 08/05/2024 calcium carbonate-vitami n D (OSCAL + D) 500-5 MG-MCG Tab tablet Take 1 tablet by mouth daily. chlorthalidone (HYGROTEN) 25 MG tablet Take 1 tablet (25 mg total) by mouth daily. guaiFENesin-code ine (GUAIATUSSIN AC) 100-10 MG/5ML syrupIndications :Cough Take 10 mLs by mouth every 12 (twelve) hours as needed for Cough. Indications: Cough 118 mL 08/05/2024 loratadine (CLARITIN) 10 MG tablet Take 1 tablet (10 mg total) by mouth daily. memantine (NAMENDA) 10 MG tablet Take 1 tablet (10 mg total) by mouth daily. 08/03/2024 multi vitamin/minerals (THERA-M ENHANCED) tablet Take 1 tablet by mouth daily. potassium chloride CR (K-TAB) 10 MEQ Tab CR tablet Take 1 tablet (10 mEq total) by mouth daily. albuterol (PROVENTIL) (2.5 MG/3ML) 0.083% nebulizer solution Take by nebulization 3 (three) times daily. albuterol sulfate HFA 108 (90 Base) MCG/ACT inhaler Inhale 2 puffs into the lungs every 6 (six) hours as needed. 18 g 05/27/2024 Docusate Sodium (DSS) 100 MG Cap Take 100 mg by mouth 2 (two) times daily as needed (constipation). predniSONE 50 MG tablet Take 1 tablet (50 mg total) by mouth daily for 5 days. 5 tablet 08/05/2024 4 documented as of this encounter ED Notes * Amy Kelly RN - 08/05/2024 4:45 PM CST Provider discussed today's findings with the patient. The patient has been given information regarding their treatment, follow up and concerning symptoms for which they should seek urgent or emergentattention. I have expressed the the importance of seeking attention should there be any new, or worsening symptoms or persistence of their condition. Patient verbalized understanding of the dischargeinstructions. INSPECTOR * FREDIS Crockett - 08/05/2024 12:00 PM CST ED NOTE Chief Complaint Chief Complaint Patient presents with Shortness Of Breath History of Present Illness 84-year-old female with history of COPD and dementia presenting to emergency department with daughter for concerns of difficulty breathing increasing over the past several days. Associated with cough. Reports she has been out of her inhalers at home and has been using nebulizer machine. Cough productive with white sputum. Denies fevers chills or hemoptysis. Medical History ALLERGIES: Review of patient's allergies indicates: No Known Allergies MEDICATIONS: Prior to Admission medications Medication Sig Start Date End Date Taking? Authorizing Provider ADVAIR HFA 115-21 MCG/ACT inhaler Inhale 2 puffs into the lungs 2 (two) times daily. Yes Default History Genericprovider albuterol sulfate HFA 108 (90 Base) MCG/ACT inhaler Inhale 2 puffs into the lungs every 6 (six) hours as needed. 08/05/24 Yes FREDIS Crockett amLODIPine (NORVASC) 10 MG tablet Take 1 tablet (10 mg total) by mouth daily. Yes Default History Genericprovider Aspirin 81 MG Cap Take 81 mg by mouth daily. Yes Default History Genericprovider atorvastatin (LIPITOR) 20 MG tablet Take 1 tablet (20 mg total) by mouth every morning. 07/03/24 Yes Default History Genericprovider azithromycin (ZITHROMAX) 250 MG tablet Take 2 tablets by mouth on day one then 1 daily for four days. 08/05/24 Yes FREDIS Crockett budesonide-formoterol (SYMBICORT) 160-4.5 MCG/ACT inhaler Inhale 2 puffs into the lungs 2 (two) times daily. 08/05/24 Yes FREDIS Crockett calcium carbonate-vitamin D (OSCAL + D) 500-5 MG-MCG Tab tablet Take 1 tablet by mouth daily. Yes Default History Genericprovider chlorthalidone (HYGROTEN) 25 MG tablet Take 1 tablet (25 mg total) by mouth daily. Yes Default History Genericprovider guaiFENesin-codeine (GUAIATUSSIN AC) 100-10 MG/5ML syrup Take 10 mLs by mouth every 12 (twelve) hours as needed for Cough. Indications: Cough 08/05/24 Yes FREDIS Crockett loratadine (CLARITIN) 10 MG tablet Take 1 tablet (10 mg total) by mouth daily. Yes Default History Genericprovider memantine (NAMENDA) 10 MG tablet Take 1 tablet (10 mg total) by mouth daily. 08/03/24 Yes Default History Genericprovider multi vitamin/minerals (THERA-M ENHANCED) tablet Take 1 tablet by mouth daily. Yes Default History Genericprovider potassium chloride CR (K-TAB) 10 MEQ Tab CR tablet Take 1 tablet (10 mEq total) by mouth daily. YesDefault History Genericprovider predniSONE 50 MG tablet Take 1 tablet (50 mg total) by mouth daily for 5 days. 08/05/24 08/10/24 Yes FREDIS Crockett albuterol (PROVENTIL) (2.5 MG/3ML) 0.083% nebulizer solution Take by nebulization 3 (three) times daily. Default History Genericprovider albuterol sulfate HFA 108 (90 Base) MCG/ACT inhaler Inhale 2 puffs into the lungs every 6 (six) hours as needed. 05/27/24 Tee Carney MD Docusate Sodium (DSS) 100 MG Cap Take 100 mg by mouth 2 (two) times daily as needed (constipation).Default History Genericprovider PAST MEDICAL HISTORY: Past Medical History: Diagnosis Date Constipation COPD (chronic obstructive pulmonary disease) ([facility] HHS/HCC) Dementia without behavioral disturbance ([facility]) Hypercholesteremia Hypertension PAST SURGICAL HISTORY: Past Surgical History: Procedure Laterality Date TONSILLECTOMY FAMILY HISTORY: No family history on file. SOCIAL HISTORY: Social History Tobacco Use Smoking status: Never Passive exposure: Never Smokeless tobacco: Former Types: Chew Vaping Use Vaping status: Never Used Substance Use Topics Alcohol use: Yes Comment: 2-3 cans beer a day Drug use: Never Review of Systems As stated in HPI Physical Exam Filed Vitals: 08/05/24 1144 08/05/24 1147 BP: 131/67 Pulse: 100 Resp: 20 Temp: 98.8 ??F (37.1 ??C) TempSrc: Oral SpO2: 100% Weight: 83 kg (182 lb 15.7 oz) Height: 1.64 m (5' 4.57 ) Physical Exam Vitals and nursing note reviewed. Constitutional: General: She is not in acute distress. Appearance: She is well-developed. HENT: Head: Normocephalic. Nose: Nose normal. Pulmonary: Effort: Pulmonary effort is normal. No respiratory distress. Breath sounds: Wheezing present. Musculoskeletal: Cervical back: Normal range of motion and neck supple. Skin: General: Skin is warm and dry. Neurological: Mental Status: She is alert and oriented to person, place, and time. Psychiatric: Behavior: Behavior normal. Thought Content: Thought content normal. Judgment: Judgment normal. Diagnostic Studies / Procedures ELECTROCARDIOGRAMS: Results for orders placed or performed during the hospital encounter of 08/05/24 ECG 12 lead Narrative [place] [address] Test Date: 2024-08-05 Pat Name: HEIDI CANNON Department: 41 Room: Gender: Female Workers' Compensation Mediator: : 1940 Requested By: RACQUEL RAMIREZ Order Number: [id number] Reading MD: Mary Mixon Measurements Intervals [place] Rate: 98 P: 51 MD: 208 QRS: 47 QRSD: 98 T: 71 QT: 379 QTc: 486 Interpretive Statements SINUS RHYTHM MINIMAL ST DEPRESSION [0.025+ mV ST DEPRESSION] Prolonged QT interval Compared to ECG 05/27/2024 10:02:21 ST (T wave) deviation now present First degree AV block no longer present Prolonged QT interval INSPECTOR LABORATORY STUDIES: Results for orders placed or performed during the hospital encounter of 08/05/24 CBC W/DIFF AUTOMATED Result Value Ref Range WBC 7.34 4.5 - 11.0 x10'3/uL RBC 4.84 4.20 - 5.40 x10'6/uL HGB 14.4 12.0 - 16.0 G/DL HCT 43.2 38.0 - 48.0 % MCV 89.3 81.0 - 99.0 FL MCH 29.8 27.0 - 31.0 PG MCHC 33.3 32.0 - 36.0 G/DL RDW 13.5 11.5 - 14.5 % PLT 327 130 - 400 x10'3/uL MPV 11.5 9.3 - 12.2 FL DIFFERENTIAL TYPE MANUAL DIFFERENTIAL SEG NEUTROPHILS 45 % LYMPHOCYTES 37 % MONOCYTES 6 % EOSINOPHILS 7 % BASOPHILS 5 % ABS. NEUTROPHILS 3.30 1.80 - 7.70 x10'3/uL ABS. LYMPHOCYTES 2.72 1.00 - 4.80 x10'3/uL ABS. MONOCYTES 0.44 0.24 - 0.86 x10'3/uL ABS. EOSINOPHILS 0.51 (H) 0.04 - 0.36 x10'3/uL ABS. BASOPHILS 0.37 (H) 0.01 - 0.08 x10'3/uL RBC MORPHOLOGY RBC MORPHOLOGY APPEARS NORMAL. SLIDE REVIEWED. PLT EST. ADEQUATE COMPREHENSIVE METABOLIC PANEL Result Value Ref Range GLUCOSE 99 70 - 99 MG/DL BUN 11 7 - 18 MG/DL CREATININE S/P/B 1.00 0.55 - 1.02 MG/DL SODIUM S/P/B 135 (L) 136 - 145 MMOL/L POTASSIUM S/P/B 3.4 (L) 3.5 - 5.1 MMOL/L CHLORIDE S/P/B 99 97 - 115 MMOL/L CO2 30.1 21 - 32 MMOL/L CALCIUM S/P/B 10.2 (H) 8.5 - 10.1 MG/DL BILIRUBIN TOTAL S/P/B 0.6 0.2 - 1.2 MG/DL TOTAL PROTEIN S/P/B 7.6 6.4 - 8.2 G/DL ALBUMIN S/P/B 3.7 3.4 - 5.0 G/DL AST 46 (H) 15 - 37 U/L ALT 33 14 - 55 U/L ALKALINE PHOSPHATASE S/P/B 81 50 - 136 U/L ANION GAP 5.9 2 - 10 MMOL/L BUN CREATININE RATIO 11.0 6 - 26 A/G RATIO 0.9 (L) 1.0 - 2.0 RATIO GFR ESTIMATE 55 (L) >90 ML/MIN/1.73 M2 TROPONIN, QUANT Result Value Ref Range TROPONIN I HIGH SENSITIVITY 8 <54 ng/L PRO-BRAIN NATRIURETIC PEPTIDE Result Value Ref Range PRO-B TYPE NATRIURETIC PEPTIDE 134 <450 PG/ML CORONAVIRUS (COVID 19) Specimen: NASAL Result Value Ref Range CORONAVIRUS SARS COV 2 RNA NEGATIVE NEGATIVE SPECIMEN TYPE NASAL INFLUENZA A & B Specimen: NASOPHARYNGEAL SWAB Result Value Ref Range SPECIMEN TYPE NASAL INFLUENZA A NEGATIVE NEGATIVE INFLUENZA B NEGATIVE NEGATIVE IMAGING STUDIES CTA CHEST PE PROTOCOL Final Result by User, [id number] (08/05 6861) [facility] [address] [place], [place] [address] Procedure(s): CTA CHEST PE PROTOCOL Date of service: 08/05/2024 2:36 PM Provided clinical information: 84 years, Female, dyspnea Procedure and materials: Helical images of the chest are obtained from superior to the thoracic inlet to inferior costophrenic angles. Images obtained after intravenous contrast. 100 mL Isovue-370. Postprocessing performed. 3-D MIP images obtained. A dose lowering technique was used for this procedure, which may include, but is not limited to, dose reduction technique, automated exposure control, iterative reconstruction, ALARA (As Low As Reasonably Achievable), or Image Gently techniques. Comparison studies: None. Observations: Axillae: No enlarged lymph nodes. Mediastinum/Cele:No enlarged mediastinal lymph nodes. No cardiomegaly.No pulmonary embolism is present in the main pulmonary artery or segmental branches. Lung Parenchyma:1 mm punctate noncalcified nodule right middle lobe image 66. Minimal atelectasis right middle lobe. Calcified granuloma right middle lobe. Minimal atelectasis right and left lower lobe. Calcified granuloma right lower lobe image #60. Calcified nodule left upper lobe image #76. This measures 420. Calcified granuloma image #101. Visualized Upper abdominal structures:Unremarkable. Bone Windows:Degenerative changes of the cervical and thoracic spine. Inferior endplate compression fracture L1 is present. No cortical irregularity. IMPRESSION: Compression fracture inferior endplate of L1. Age indeterminate. No cortical irregularity. Sclerosis is present. No pulmonary artery embolism in the main pulmonary arteries or proximal segmental branches. Noncalcified nodule 1 mm right middle lobe. Follow-up should be based on risk factors. The patient is at low risk for pulmonary neoplastic process and no further follow-up recommended,( Kristoferner 2017 recommendations) Referred By: Interpreted By: Esequiel Burris MD, 08/05/2024 3:49 PM XR CHEST PA+LAT Final Result by User, [email or web address] (08/05 7475) [address] [address] Examination: Chest x-ray 2 view Exam date/time: 08/05/2024 12:26 PM Reason For Exam: cough, short of breath Comparison: 05/27/2024 AP upright view Technique: AP and lateral views of the chest were obtained. Findings: The cardiac silhouette, mediastinal contours, and pulmonary vessels appear normal. The lungs are clear. No pneumothorax. No consolidations or effusions are seen. Multiple external wires and leads. No evidence of bronchial wall thickening or abnormal pulmonary interstitium. Multiple external hair type densities project right supraclavicular region. Atherosclerotic calcification aortic arch and descending thoracic aorta. Overall, no radiographic evidence of active chest disease. =====IMPRESSION:===== No radiographic evidence of active chest disease. Ordered By: RACQUEL RAMIREZ Interpreted By: Ace Chiang MD, 08/05/2024 12:47 PM ED Course / Medical Decision Making MDM Amount and/or Complexity of Data Reviewed Clinical lab tests: ordered and reviewed Tests in the radiology section of CPT??: ordered and reviewed Laboratory testing is grossly unremarkable with no significant leukocytosis and normal troponins. Chest x-ray with no acute cardiopulmonary abnormality CTA chest performed no evidence of acute pulmonary embolism or other significant lung findings symptoms most consistent with COPD exacerbation no respiratory distress noted at this time will start patient on prednisone and azithromycin will follow-up with primary care as needed. Medications ipratropium-albuterol (DUONEB) 0.5-2.5 (3) MG/3ML nebulizer solution 3 mL (3 mLs Nebulization Given08/05/24 1319) methylPREDNISolone sodium succinate (SOLU-Medrol) injection 125 mg (125 mg Intravenous Given 08/05/24 1354) guaiFENesin ER (MUCINEX) 12 hr tablet 600 mg (600 mg Oral Given 08/05/24 1555) iopamidol (ISOVUE-370) 76 % injection 100 mL (100 mLs Intravenous Given 08/05/24 1534) Clinical Impression COPD exacerbation ([facility]) (Primary) Cough Current Discharge Medication List START taking these medications Details !! albuterol sulfate HFA 108 (90 Base) MCG/ACT inhaler Inhale 2 puffs into the lungs every 6 (six) hours as needed. Qty: 8 g, Refills: 0 Class: Eprescribe [facility] [place] [address] [address] (Ph #: [phone]) azithromycin (ZITHROMAX) 250 MG tablet Take 2 tablets by mouth on day one then 1 daily for four days. Qty: 6 tablet, Refills: 0 Class: Empire Roboticscribe Pharmacy: [facility] [address] [place] [address] [address] (Ph #: [phone]) budesonide-formoterol (SYMBICORT) 160-4.5 MCG/ACT inhaler Inhale 2 puffs into the lungs 2 (two) times daily. Qty: 6 g, Refills: 0 Class: Eprescribe Pharmacy: [facility] [address] [place] [address] [address] (Ph #: [phone]) guaiFENesin-codeine (GUAIATUSSIN AC) 100-10 MG/5ML syrup Take 10 mLs by mouth every 12 (twelve) hours as needed for Cough. Indications: Cough Qty: 118 mL, Refills: 0 Class: Eprescribe [facility] [place] [address] [address] (Ph #: [phone]) Associated Diagnoses: Cough predniSONE 50 MG tablet Take 1 tablet (50 mg total) by mouth daily for 5 days. Qty: 5 tablet, Refills: 0 Class: Eprescribe Pharmacy: [facility] [address] [place] [address] [address] (Ph #: [phone]) !! - Potential duplicate medications found. Please discuss with provider. Disposition: Discharge Follow-Up: Arti Gibbs NP [facility] [place] [address] Schedule an appointment as soon as possible for a visit in 1 week As needed FREDIS Crockett 08/05/2024 FREDIS Crockett 08/05/24 1613 Cosigned by Alton العلي MD at 08/06/2024 6:08 AM MEAT INSPECTOR INSPECTOR INSPECTOR * FREDIS Anderson - 08/05/2024 11:45 AM CST [place], [place] EMERGENCY DEPARTMENT ENCOUNTER Medical Screening Examination 08/05/24 11:45 AM Chief Complaint : Shortness Of Breath HPI : Heidi Cannon is a 84-year-old female hx COPD who presents with daughter who relays part of history. Concerned about her breathing, says she can't breathe well ; noting she ran out of her inhalers and has been reliant on her nebulizer machine. Daughter says she goes through the inhalers tooquick. Daughter says they picked up the advair inhaler yesterday. Seen by pulmonology about 2 weeks ago. Patient says feeling not too good and also short of breath. +Coughing, productive with white mucus. Vital Signs: Filed Vitals: 08/05/24 1144 BP: 131/67 Pulse: 100 Resp: 20 Temp: 98.8 ??F (37.1 ??C) TempSrc: Oral SpO2: 100% Physical exam: A brief physical exam was completed to facilitate/expedite patient care. Plan: Necessary labs/imaging/medications ordered to initiate pt care. FREDIS Anderson 08/05/24 1148 Cosigned by Alton العلي MD at 08/05/2024 12:12 PM MEAT INSPECTOR INSPECTOR INSPECTOR * Scarlet Friend RN - 08/05/2024 11:45 AM CST Pt ambulatory to triage with daughter c/o shortness of breath and tired with cough (productive white, thick sputum) Daughter reports that she has wheezing and shortness of breath - she ran out of inhaler and nebulizer. Pt has hx COPD and dementia - takes too much inhaler and doesn't like her nebulizer treatment. Pt recently saw a almond sorter and had PFTs done. She still needs a sleep apnea test. INSPECTOR INSPECTOR documented in this encounter Plan of Treatment Not on file documented as of this encounter Procedures Procedure Name Priority Date/Time Associated Diagnosis Comments CTA CHEST PE PROTOCOL STAT 08/05/2024 3:34 PM MEAT INSPECTOR CORONAVIRUS (COVID 19) STAT 1:13 PM MEAT INSPECTOR INFLUENZA A & B STAT 08/05/2024 1:13 PM MEAT INSPECTOR XR CHEST PA+LAT STAT 08/05/2024 12:45 PM MEAT INSPECTOR ECG 12-LEAD Routine 08/05/2024 12:17 PM MEAT INSPECTOR PRO-BRAIN NATRIURETIC PEPTIDE STAT 08/05/2024 12:11 PM MEAT INSPECTOR COMPREHENSIVE METABOLIC PANEL STAT 08/05/2024 12:11 PM MEAT INSPECTOR CBC W/DIFF AUTOMATED STAT 08/05/2024 12:11 PM MEAT INSPECTOR TROPONIN, QUANT STAT 08/05/2024 12:11 PM MEAT INSPECTOR documented in this encounter Results * CTA CHEST PE PROTOCOL (08/05/2024 3:34 PM MEAT INSPECTOR) Anatomical Region Laterality Modality Chest Computed Tomogra phy 08/05/2024 3:49 PM MEAT INSPECTOR Impressions 08/05/2024 3:57 PM MEAT INSPECTOR IMPRESSION: Compression fracture inferior endplate of L1. Age indeterminate. No cortical irregularity. Sclerosis is present. No pulmonary artery embolism in the main pulmonary arteries or proximal segmental branches. Noncalcified nodule 1 mm right middle lobe. Follow-up should be based on risk factors. The patient is at low risk for pulmonary neoplastic process and no further follow-up recommended,( Fleischner 2017 recommendations) Referred By: ?? Interpreted By: Esequiel Burris MD, 08/05/2024 3:49 PM Narrative 08/05/2024 3:57 PM MEAT INSPECTOR [address] [address] Procedure(s): CTA CHEST PE PROTOCOL Date of service: 08/05/2024 2:36 PM Provided clinical information: 84 years, Female, dyspnea Procedure and materials: Helical images of the chest are obtained from superior to the thoracic inlet to inferior costophrenic angles. Images obtained after intravenous contrast. 100 mL Isovue-370. Postprocessing performed. 3-D MIP images obtained. A dose lowering technique was used for this procedure, which may include, but is not limited to, dose reduction technique, automated exposure control, iterative reconstruction, ALARA (As Low As Reasonably Achievable), or Image Gently techniques. Comparison studies: None. Observations: ?? Axillae: No enlarged lymph nodes. Mediastinum/Cele:No enlarged mediastinal lymph nodes. ??No cardiomegaly.No pulmonary embolism is present in the main pulmonary artery or segmental branches. Lung Parenchyma:1 mm punctate noncalcified nodule right middle lobe image 66. Minimal atelectasis right middle lobe. Calcified granuloma right middle lobe. Minimal atelectasis right and left lower lobe. Calcified granuloma right lower lobe image #60. Calcified nodule left upper lobe image #76. This measures 420. Calcified granuloma image #101. Visualized Upper abdominal structures:Unremarkable. Bone Windows:Degenerative changes of the cervical and thoracic spine. Inferior endplate compression fracture L1 is present. No cortical irregularity. Procedure Note Esequiel Burris MD - 08/05/2024 [facility] [address] [place], [place] [address] Procedure(s): CTA CHEST PE PROTOCOL Date of service: 08/05/2024 2:36 PM Provided clinical information: 84 years, Female, dyspnea Procedure and materials: Helical images of the chest are obtained fromsuperior to the thoracic inlet to inferior costophrenic angles. Imagesobtained after intravenous contrast. 100 mL Isovue-370. Postprocessingperformed. 3-D MIP images obtained. A dose lowering technique was used for this procedure, which may include,but is not limited to, dose reduction technique, automated exposurecontrol, iterative reconstruction, ALARA (As Low As ReasonablyAchievable), or Image Gently techniques. Comparison studies: None. Observations: Axillae: No enlarged lymph nodes. Mediastinum/Cele:No enlarged mediastinal lymph nodes. No cardiomegaly.Nopulmonary embolism is present in the main pulmonary artery or segmentalbranches. Lung Parenchyma:1 mm punctate noncalcified nodule right middle lobe image66. Minimal atelectasis right middle lobe. Calcified granuloma rightmiddle lobe. Minimal atelectasis right and left lower lobe. Calcifiedgranuloma right lower lobe image #60. Calcified nodule left upper lobeimage #76. This measures 420. Calcified granuloma image #101. Visualized Upper abdominal structures:Unremarkable. Bone Windows:Degenerative changes of the cervical and thoracic spine.Inferior endplate compression fracture L1 is present. No corticalirregularity. IMPRESSION: Compression fracture inferior endplate of L1. Age indeterminate. Nocortical irregularity. Sclerosis is present. No pulmonary artery embolism in the main pulmonary arteries or proximalsegmental branches. Noncalcified nodule 1 mm right middle lobe. Follow-up should be based onrisk factors. The patient is at low risk for pulmonary neoplastic processand no further follow-up recommended,( Jamalischner 2017 recommendations) Referred By: Interpreted By: Esequiel Burris MD, 08/05/2024 3:[address] Final Resul t * INFLUENZA A & B (08/05/2024 1:13 PM MEAT INSPECTOR) SPECIMEN TYPE NASAL 08/05/2024 1:21 PM MEAT INSPECTOR [facility] INFLUENZA A NEGATIVE NEGATIVE 08/05/2024 1:45 PM MEAT INSPECTOR [facility] INFLUENZA B NEGATIVE NEGATIVE 08/05/2024 1:45 PM MEAT INSPECTOR [facility] Comment: Interpretation: Negative for Influenza A and B. A negative result does not exclude influenza virus infection. If influenza is circulating in your community, a diagnosis of influenza should be considered based on a patient's clinical presentation and empiric antiviral treatment should be considered, if indicated. If more conclusive testing is needed for hospitalized inpatients, follow-up confirmatory testing with RT-PCR requires a separate order. NASOPHARYNGEAL SWAB / Unknown 08/05/2024 1:13 PM MEAT INSPECTOR Wisam [facility]NEAL MICROBIOLOGY - GENERAL ORDE RABLES Final Result [facility] [address] [place] [address], * CORONAVIRUS (COVID 19) (08/05/2024 1:13 PM MEAT INSPECTOR) CORONAVIRUS SARS COV 2 RNA NEGATIVE NEGATIVE 08/05/2024 1:45 PM MEAT INSPECTOR [facility] Comment: NEGATIVE RESULTS DO NOT RULE OUT COVID 19 AND SHOULD NOT BE USED THE SOLE BASIS FOR TREATMENT OR PATIENT MANAGEMENT DECISIONS, INCLUDING INFECTION CONTROL DECISIONS. NEGATIVE RESULTS SHOULD BE CONSIDERED IN THE CONTEXT OF A PATIENT'S RECENT EXPOSURES, HISTORY AND THE PRESENCE OF CLINICAL SIGNS AND SYMPTOMS CONSISTENT WITH COVID 19. THE ID NOW COVID-19 2.0 TEST HAS BEEN AUTHORIZED BY THE FDA UNDER EAU FOR USE BY AUTHORIZED LABORATORIES. PERFORMED BY NUCLEIC ACID AMPLIFICATION FOR MOLECULAR QUALITATIVE DETECTION OF SARS-COV-2. SPECIMEN TYPE NASAL 08/05/2024 1:14 PM MEAT INSPECTOR [facility] NASAL STRUCTURE / Unknown 08/05/2024 1:13 PM MEAT INSPECTOR Wisam [facility]NEAL MICROBIOLOGY - GENERAL ERNIE VARGAS Final Result [facility] [address] [place] [address], * XR CHEST PA+LAT (08/05/2024 12:45 PM MEAT INSPECTOR) Anatomical Region Laterality Modality Chest Radiographic Rachel ging 08/05/2024 12:4 7 PM MEAT INSPECTOR Impressions 08/05/2024 12:48 PM MEAT INSPECTOR =====IMPRESSION:===== No radiographic evidence of active chest disease. Ordered By: RACQUEL RAMIREZ Interpreted By: Ace Chiang MD, 08/05/2024 12:47 PM Narrative 08/05/2024 12:48 PM MEAT INSPECTOR [facility] [address] [place], [place] [address] Examination: Chest x-ray 2 view Exam date/time: 08/05/2024 12:26 PM Reason For Exam: ??cough, short of breath ? Comparison: 05/27/2024 AP upright view Technique: AP and lateral views of the chest were obtained. Findings: The cardiac silhouette, mediastinal contours, and pulmonary vessels appear normal. The lungs are clear. No pneumothorax. No consolidations or effusions are seen. ??Multiple external wires and leads. No evidence of bronchial wall thickening or abnormal pulmonary interstitium. Multiple external hair type densities project right supraclavicular region. Atherosclerotic calcification aortic arch and descending thoracic aorta. Overall, no radiographic evidence of active chest disease. Procedure Note Ace Chiang MD - 08/05/2024 [facility] [address] [place], [place] [address] Examination: Chest x-ray 2 view Exam date/time: 08/05/2024 12:26 PM Reason For Exam: cough, short of breath Comparison: 05/27/2024 AP upright view Technique: AP and lateral views of the chest were obtained. Findings: The cardiac silhouette, mediastinal contours, and pulmonaryvessels appear normal. The lungs are clear. No pneumothorax. Noconsolidations or effusions are seen. Multiple external wires and leads.No evidence of bronchial wall thickening or abnormal pulmonaryinterstitium. Multiple external hair type densities project rightsupraclavicular region. Atherosclerotic calcification aortic arch anddescending thoracic aorta. Overall, no radiographic evidence of activechest disease. =====IMPRESSION:===== No radiographic evidence of active chest disease. Ordered By: RACQUEL RAMIREZ Interpreted By: Ace Chiang MD, 08/05/2024 12:47 PM [facility]quel [facility] GENERAL IMAGING Final Resul t * ECG 12 lead (08/05/2024 12:17 PM MEAT INSPECTOR) 08/05/2024 12:1 7 PM MEAT INSPECTOR Narrative [facility] RAD - 08/05/2024 3:20 PM MEAT INSPECTOR ?[place] ? [address] [facility] ? Test Date: ?2024-08-05 Pat Name: ? EATHER KASSANDRA ?Department: ?? 41 ? Room: ? Gender: ? Female ? Workers' Compensation Mediator: ?? : ?[id number] ? Requested By: RACQUEL RAMIREZ Order Number: [id number] ? Reading MD: ?? Shiyam Satwani ? Measurements Intervals ?[place] ? Rate: ? 98 ? P: ?51 MD: ? 208 ?QRS: ?47 QRSD: ? 98 ? T: ?71 QT: ? 379 ? QTc: ?486 ? Interpretive Statements SINUS RHYTHM MINIMAL ST DEPRESSION ??[0.025+ mV ST DEPRESSION] Prolonged QT interval Compared to ECG 05/27/2024 10:02:21 ST (T wave) deviation now present First degree AV block no longer present Prolonged QT interval INSPECTOR Procedure Note Mary Mixon MD - 08/05/[address] Test Date: 2024-08-05 Pat Name: HEIDI CANNON Department: 41 Room: Gender: Female Workers' Compensation Mediator: : 1940 Requested By: RACQUEL RAMIREZ Order Number: [id number] Reading MD: Mary Mixon Measurements Intervals [place] Rate: 98 P: 51 MD: 208 QRS: 47 QRSD: 98 T: 71 QT: 379 QTc: 486 Interpretive Statements SINUS RHYTHM MINIMAL ST DEPRESSION [0.025+ mV ST DEPRESSION] Prolonged QT interval Compared to ECG 05/27/2024 10:02:21 ST (T wave) deviation now present First degree AV block no longer present Prolonged QT interval INSPECTOR us Racquel Ramirez PA ECG ORDERABLES Final Resul t [facility] ([facility]) RAD * PRO-BRAIN NATRIURETIC PEPTIDE (08/05/2024 12:11 PM MEAT INSPECTOR) Pathologist [facility] PRO-B TYPE NATRIURETIC PEPTIDE 134 <450 PG/ML 08/05/2024 12:57 PM MEAT INSPECTOR [facility] Comment: CUT POINTS ESTABLISHED BY INTERNATIONAL [...] OF 89% AND 72% FOR ACUTE CHF. 08/05/2024 12:1 1 PM MEAT INSPECTOR Racquel [facility] LABORATORY Final Resul t Performing Organization Address City/[facility] Co de Phone Number [facility] [address] [place] [address], [place] [phone] * TROPONIN, QUANT (08/05/2024 12:11 PM MEAT INSPECTOR) TROPONIN I HIGH SENSITIVITY 8 <54 ng/L 08/05/2024 12:57 PM MEAT INSPECTOR [facility] Comment: HIGH DOSES OF BIOTIN, TROPONIN-SPECIFIC AUTOANTIBODIES, AND ANTIBODY THERAPY CONTAINING HAMA MAY INTERFERE WITH THIS TEST RESULT. CORRELATION TO CLINICAL HISTORY AND PRESENTATION RECOMMENDED. 08/05/2024 12:1 1 PM MEAT INSPECTOR Racquel MCNEAL LABORATORY Final Resul t Performing Organization Address [facility] Co de Phone Number [facility] [address] [place] [address], [place] [phone] * (ABNORMAL) COMPREHENSIVE METABOLIC PANEL (08/05/2024 12:11 PM MEAT INSPECTOR) GLUCOSE 99 70 - 99 MG/DL 08/05/2024 12:57 PM MEAT INSPECTOR [facility] BUN 11 7 - 18 MG/DL 08/05/2024 12:57 PM MEAT INSPECTOR [facility] CREATININE S/P/B 1.00 0.55 - 1.02 MG/DL 08/05/2024 12:57 PM MEAT INSPECTOR [facility] SODIUM S/P/B 135(L) 136 - 145 MMOL/L 08/05/2024 12:57 PM [facility] POTASSIUM S/P/B 3.4(L) 3.5 - 5.1 MMOL/L 08/05/2024 12:57 PM [facility] Comment:SLIGHT HEMOLYSIS, RE SULT MAY BE AFFECTED. CHLORIDE S/P/B 99 97 - 115 MMOL/L 08/05/2024 12:57 PM [facility] CO2 30.1 21 - 32 MMOL/L 08/05/2024 12:57 PM [facility] CALCIUM S/P/B 10.2(H) 8.5 - 10.1 MG/DL 08/05/2024 12:57 PM [facility] BILIRUBIN TOTAL S/P/B 0.6 0.2 - 1.2 MG/DL 08/05/2024 12:57 PM [facility] Comment: THIS ASSAY IS NOT RECOMMENDED FOR PATIENTS UNDERGOING TREATMENT WITH ELTROMBOPAG DUE TO THE POTENTIAL FOR FALSELY ELEVATED RESULTS. TOTAL PROTEIN S/P/B 7.6 6.4 - 8.2 G/DL 08/05/2024 12:57 PM [facility] ALBUMIN S/P/B 3.7 3.4 - 5.0 G/DL 08/05/2024 12:57 PM [facility] AST 46(H) 15 - 37 U/L 08/05/2024 12:57 PM [facility] Comment:SLIGHT HEMOLYSIS, RE SULT MAY BE AFFECTED. ALT 33 14 - 55 U/L 08/05/2024 12:57 PM [facility] ALKALINE PHOSPHATASE S/P/B 81 50 - 136 U/L 08/05/2024 12:57 PM [facility] ANION GAP 5.9 2 - 10 MMOL/L 08/05/2024 12:57 PM MEAT INSPECTOR [facility] BUN CREATININE RATIO 11.0 6 - 26 08/05/2024 12:57 PM MEAT INSPECTOR [facility] A/G RATIO 0.9(L) 1.0 - 2.0 RATIO 08/05/2024 12:57 PM [facility] GFR ESTIMATE 55(L) >90 ML/MIN/1.7 3 M2 08/05/2024 12:57 PM [facility] Comment: NOTE: eGFR is not calculated for patients <18 years of age or gender unknown. This is an estimated GFR calculation using the new CKD EPI creatinine equation without race and so does not require a correction factor for race. This estimated GFR should not be used for calculating drug doses. 08/05/2024 12:1 1 PM MEAT INSPECTOR us Racquel Ramirez PA LABORATORY Final Resul t [facility] [address] [place] [address], * (ABNORMAL) CBC W/DIFF AUTOMATED (08/05/2024 12:11 PM MEAT INSPECTOR) WBC 7.34 4.5 - 11.0 x10'3/uL 08/05/2024 12:52 PM MEAT INSPECTOR [facility] RBC 4.84 4.20 - 5.40 x10'6/uL 08/05/2024 12:52 PM MEAT INSPECTOR [facility] HGB 14.4 12.0 - 16.0 G/DL 08/05/2024 12:52 PM [facility] HCT 43.2 38.0 - 48.0 % 08/05/2024 12:52 PM [facility] MCV 89.3 81.0 - 99.0 FL 08/05/2024 12:52 PM [facility] MCH 29.8 27.0 - 31.0 PG 08/05/2024 12:52 PM MEAT INSPECTOR [facility] MCHC 33.3 32.0 - 36.0 G/DL 08/05/2024 12:52 PM MEAT INSPECTOR [facility] RDW 13.5 11.5 - 14.5 % 08/05/2024 12:52 PM MEAT INSPECTOR [facility] PLT 327 130 - 400 x10'3/uL 08/05/2024 12:52 PM MEAT INSPECTOR [facility] MPV 11.5 9.3 - 12.2 FL 08/05/2024 12:52 PM MEAT INSPECTOR [facility] DIFFERENTIAL TYPE MANUAL DIFFERENTIAL 08/05/2024 12:59 PM MEAT INSPECTOR [facility] SEG NEUTROPHILS 45 % 12:59 PM MEAT INSPECTOR [facility] LYMPHOCYTES 37 % 08/05/2024 12:59 PM MEAT INSPECTOR [facility] MONOCYTES 6 % 08/05/2024 12:59 PM MEAT INSPECTOR [facility] EOSINOPHILS 7 % 08/05/2024 12:59 PM MEAT INSPECTOR [facility] BASOPHILS 5 % 08/05/2024 12:59 PM MEAT INSPECTOR [facility] ABS. NEUTROPHILS 3.30 1.80 - 7.70 x10'3/uL 08/05/2024 12:59 PM MEAT INSPECTOR [facility] ABS. LYMPHOCYTES 2.72 1.00 - 4.80 x10'3/uL 08/05/2024 12:59 PM MEAT INSPECTOR [facility] ABS. MONOCYTES 0.44 0.24 - 0.86 x10'3/uL 08/05/2024 12:59 PM [facility] ABS. EOSINOPHILS 0.51(H) 0.04 - 0.36 x10'3/uL 08/05/2024 12:59 PM MEAT INSPECTOR [facility] ABS. BASOPHILS 0.37(H) 0.01 - 0.08 x10'3/uL 08/05/2024 12:59 PM MEAT INSPECTOR [facility] RBC MORPHOLOGY RBC MORPHOLOGY APPEARS NORMAL. SLIDE REVIEWED. 08/05/2024 12:59 PM MEAT INSPECTOR [facility] PLT EST. ADEQUATE 08/05/2024 12:59 PM MEAT INSPECTOR [facility] 08/05/2024 12:1 1 PM MEAT INSPECTOR us Racquel MCNEAL LABORATORY Final Resul t [facility] [address] [place] [address], [place] [phone] documented in this encounter Visit Diagnoses Diagnosis COPD exacerbation ([facility])- Primary Obstructive chronic bronchitis with exacerbation Cough documented in this encounter Administered Medications Inactive Administered Medications - up to 3 most recent administrations Medication Order MAR Action Action Date Dose Rate Site guaiFENesin ER (MUCINEX) 12 hr tablet 600 mg 600 mg, Oral, Once, 1 dose, On 08/05/24 at 1515, Do not break, chew, or crush. Given 08/05/2024 3:55 PM MEAT INSPECTOR 600 mg iopamidol (ISOVUE-370) 76 % injection 100 mL 100 mL, Intravenous, IMG once as needed, Contrast, 1 dose, Starting on 08/05/24 at 1534, Until 08/05/24 at 1534 Given 08/05/2024 3:34 PM MEAT INSPECTOR 100 mLs ipratropium-albuterol (DUONEB) 0.5-2.5 (3) MG/3ML nebulizer solution 3 mL 3 mL, Nebulization, Once, 1 dose, On 08/05/24 at 1315 Given 08/05/2024 1:19 PM MEAT INSPECTOR 3 mLs methylPREDNISolone sodium succinate (SOLU-Medrol) injection 125 mg 125 mg, Intravenous, Once, 1 dose, On 08/05/24 at 1315, If ordered IV, administer into a vein over 3-15 minutes. Doses >= 2 mg/kg or 250mg should be given by infusion, unless the benefits of IV injection outweigh the risks (life-threatening shock) Given 08/05/2024 1:54 PM MEAT INSPECTOR 125 mg documented in this encounter Active and Recently Administered Medications Times are shown in MEAT INSPECTOR. Scheduled Medication Order 08/03/2024 08/04/2024 08/05/2024 guaiFENesin ER (MUCINEX) 12 hr tablet 600 mg (COMPLETED) 600 mg, Oral, Once, 1 dose, On 08/05/24 at 1515, Do not break, chew, or crush. 1555 (Given - Provid er: Amy Kelly RN) ipratropium-albuterol (DUONEB) 0.5-2.5 (3) MG/3ML nebulizer solution 3 mL (COMPLETED) 3 mL, Nebulization, Once, 1 dose, On 08/05/24 at 1315 1319 (Given - Provid er: Suzette Luna, LUIS) methylPREDNISolone sodium succinate (SOLU-Medrol) injection 125 mg (COMPLETED) 125 mg, Intravenous, Once, 1 dose, On 08/05/24 at 1315, If ordered IV, administer into a vein over 3-15 minutes. Doses >= 2 mg/kg or 250mg should be given by infusion, unless the benefits of IV injection outweigh the risks (life-threatening shock) 1354 (Given - Provid er: Rogelio Raines RN) PRN Medication Order 08/03/2024 08/04/2024 08/05/2024 iopamidol (ISOVUE-370) 76 % injection 100 mL (COMPLETED) 100 mL, Intravenous, IMG once as needed, Contrast, 1 dose, Starting on 08/05/24 at 1534, Until 08/05/24 at 1534 1534 (Given - Provid er: Kalie Young RTR) documented in this encounter Additional Health Concerns Infection Onset Date Last Indicated Resolved Time COVID-19 Rule Out 08/05/2024 08/05/2024 08/05/2024 1:45 PM MEAT INSPECTOR documented as of this encounter Care Teams Pourer Metal Relationship Specialty Start Date End Date Arti Gibbs NP [address] [place] [address] PCP - General Nurse Practitioner Family 08/05/24 documented as of this encounter
--- OUTSIDE RECORDS SUMMARY | 2024-09-18 11:36 | XMS_ITS | Encounter Summary ---
Author Organization [facility] Address [address] [place] [address] Care Team Providers Care Small Products Ii Assembler Name Role Phone Stephen Anguiano MD Primary Care Provider Encounter Details Date Type Department Care Team (Latest Contact Info) Description 05/29/2024 Travel Social History Tobacco Use Types Packs/Day [...] on filedocumented in this encounter Care Teams Small Products Ii Assembler Relationship Specialty Start Date End Date Stephen Anguiano MD [address] [place] [phone] PCP - General 12/27/15 documented as of this encounter
--- OUTSIDE RECORDS SUMMARY | 2024-09-18 11:36 | XMS_ITS | Encounter Summary ---
Author Organization [facility] Address [address] [place] [address]. [place], [place] [address] [place] [address] Care Team Providers Care Investigative Shopper Name Role Phone Arti Gibbs NP Primary Care Provider [phone] Encounter Details Date Type Department Care Team (Latest Contact Info) Description 08/05/2024 Travel Social History Tobacco Use Types Packs/Day [...] Rule Out 08/05/2024 08/05/2024 08/05/2024 1:45 PM GINNER documented as of this encounter Care Teams Investigative Shopper Relationship Specialty Start Date End Date Arti Gibbs NP [address] [place] [address] PCP - General Nurse Practitioner Family 08/05/24 documented as of this encounter
--- OUTSIDE RECORDS SUMMARY | 2024-09-18 11:36 | XMS_ITS | Clinical Summary ---
Author Organization [email or web address] Address [address] [facility] [place] [address] Care Team Providers Care Boat Puller Name Role Phone Stephen Anguiano MD Primary Care Provider [phone] Source Comments [facility],non-owned Affiliates and Associated Physician Practices is amultiple site organization consisting of ambulatory clinics and hospital sitesin [place], [place], [place] and [place]. This disclosure is being madepursuant to the Care Everywhere program and may not contain all information available regarding this patient. 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 Rash and other nonspecific skin eruption 016 Xerosis cutis 12/27/2015 Dyshidrosis 12/27/2015 Encounters Date Type Department Care Team Description 07/10/2024 Travel from Last 3 Months Family History Medical History Relation Name Comments Allergy (Severe) Neg Hx CVA Neg Hx Cancer Neg Hx Cancer - Breast Neg Hx Cancer - Skin, Melanoma Neg Hx Cancer - Skin, Non Melanoma Neg Hx Eczema Neg Hx Hemophilia Neg Hx Psoriasis Neg Hx Rashes/Skin Problems Neg Hx Social History Tobacco Use Types Packs/Day Years Used Date Smoking Tobacco: Never Alcohol Use Standard Drinks/Week Comments No 0 (1 standard drink = 0.6 oz pur e alcohol) Sex and Gender Information Value Date Recorded Sex Assigned at Not on file Gender Identity Not on file Sexual Orientation Not on file Plan of Treatment Health Maintenance Due Date Last Done Comments BONE DENSITY TESTING 1940 DTAP/TDAP/TD VACCINES (1 - Tdap) 1957 ZOSTER VACCINE (1 of 2) 1988 PNEUMOCOCCAL VACCINE 65+ (1 of 1 - PCV) 2003 Respiratory Syncytial Virus (RSV) Vaccine Pt: or over 60 yrs (1 - 1-dose 75+ series) 2013 DEPRESSION SCREENING 09/13/2023 MEDICARE AWV ? CALENDAR YEAR 2023 COVID-19 VACCINE ( - 2023-2 5 season) 2024 INFLUENZA VACCINE (#1) 2024 HEPATITIS B VACCINE Aged Out No longe r eligible based on patient's age to complete this topic HIB VACCINE Aged Out No longer eligi ble based on patient's age to complete this topic HPV VACCINE Aged Out No longer eligi ble based on patient's age to complete this topic MENINGOCOCCAL VACCINE Aged Out No barrera armin eligible based on patient's age to complete this topic Care Teams Boat Puller Relationship Specialty Start Date End Date Stephen Anguiano MD [address] [place] [address] PCP - General 12/27/15
--- OUTSIDE RECORDS SUMMARY | 2024-09-18 11:36 | XMS_ITS | Encounter Summary ---
Author Organization [facility] Address [facility]. [place], [place] [address] [place] [id number] Care Team Providers Care Foreclosure Paralegal Name Role Phone None, Provider Primary Care Provider Unavaila ble Reason for Visit * Reason Comments Shortness Of Breath Encounter Details Date Type Department Care Team (Late st Contact Info) Description 05/27/2024 9:38 AM CDT - 05/27/2024 11:58 AM CDT Emergency [facility] [place] [address] Tee Carney MD [address] [place] [id number] Shortness Of Breath Discharge Disposition: Home or Self Care (Routine Discharge) Social History Tobacco Use Types Packs/Day Years Used Date Smoking Tobacco: Never Passive Smoke Exposure: Never Smokeless Tobacco: Former Chew Tobacco Cessation:Counseling Given: Not Answered Alcohol Use Standard Drinks/Week Comments Yes 0 [...] Sign Reading Time Taken Comments Blood Pressure 128/63 05/27/2024 11:00 AM CDT Pulse 81 05/27/2024 11:00 AM CDT Temperature 36.3 ??C (97.3 ??F) 05/27/2024 9:20 AM CD T Respiratory Rate 16 05/27/2024 11:00 AM CDT Oxygen Saturation 97% 05/27/2024 11:00 AM CDT Inhaled Oxygen Concentration - - Weight 89.4 kg (197 lb 1.5 oz) 05/27/2024 9:20 A M CDT Height 172.7 cm (5' 8 ) 05/27/2024 9:20 AM CDT Body Mass Index 29.97 05/27/2024 9:20 AM CDT documented in this encounter Discharge Instructions * Discharge Instructions* Tee Carney MD - 05/27/2024 11:17 AM CDT Thank you for entrusting your health with me. I have obtained information about your health and reviewed your work-up. Please access [facility] to see my note and work-up. Medical care is complex and your health is important to me. I encourage you to ask questions for further understanding of today's visit and return if something changes. Sincerely, Dr. Carney * Attachments The following attachments cannot be sent through Care Everywhere. * Exacerbation of COPD (Bulgarian) documented in this encounter Medications at Time of Discharge albuterol sulfate HFA 108 (90 Base) MCG/ACT inhaler Inhale 2 puffs into the lungs every 6 (six) hours as needed. 18 g 05/27/2024 predniSONE (DELTASONE) 20 MG tablet Take 2 tablets (40 mg total) by mouth daily for 4 days. 8 tablet 05/28/2024 06/01/2024 documented as of this encounter ED Notes * Tabby Amin RN - 05/27/2024 11:58 AM CDT Provider discussed today's findings with the patient/family. The patient has been given informationregarding their treatment, follow up and concerning symptoms for which they should seek urgent or emergent attention. I have expressed the the importance of seeking attention should there be any new,or worsening symptoms or persistence of their condition. Patient verbalized understanding of the discharge instructions. * Tee Carney MD - 05/27/2024 9:55 AM CDT Emergency Department Note Chief Complaint Chief Complaint Patient presents with Shortness Of Breath The patient is a 84-year-old female who presents to the ED with her daughter at bedside for evaluation of shortness of breath and wheezing since this am. Patient has dementia, so the daughter has cameras in the home and noticed at 0745 she could hear and see the patient struggling with wheezing andbreathing issues. Per daughter, patient had VELARDE. Patient has a history of COPD and was unable to get her nebulizer to work. Patient was given albuterol and route and now feeling better. Patient's daughter reports that the patient has developed a cough and has been more agitated the past few days. Per daughter, patient has not been on steroids/antibiotics since February. Hx obtained by daughter at bedside due to patient's hx of dementia. Medical History MEDICATIONS: Prior to Admission medications Medication Sig Start Date End Date Taking? Authorizing Provider albuterol sulfate HFA 108 (90 Base) MCG/ACT inhaler Inhale 2 puffs into the lungs every 6 (six) hours as needed. 05/27/24 Yes Tee Carney MD predniSONE (DELTASONE) 20 MG tablet Take 2 tablets (40 mg total) by mouth daily for 4 days. Yes Tee Carney MD PAST MEDICAL HISTORY: Past Medical History: Diagnosis Date Constipation COPD (chronic obstructive pulmonary disease) ([facility] HHS/HCC) Dementia without behavioral disturbance ([facility] HHS/[facility]) Hypercholesteremia Hypertension PAST SURGICAL HISTORY: Past Surgical History: Procedure Laterality Date TONSILLECTOMY Physical Exam Vital 24 Hour Range Most Recent Value Temperature Temp Min: 97.3 ??F (36.3 ??C) Max: 97.3 ??F (36.3 ??C) 97.3 ??F (36.3 ??C) Pulse Pulse Min: 81 Max: 89 81 Respiratory Resp Min: 16 Max: 21 16 Blood Pressure BP Min: 128/63 Max: 151/73 128/63 Pulse Oximetry SpO2 Min: 96 % Max: 98 % 97 % O2 No data recorded Constitutional: Well developed, Well nourished, No acute distress, Non-toxic appearance. HEENT: Normocephalic, Atraumatic, Bilateral external ears normal, EOMI, Conjunctiva normal, No discharge.Oropharynx moist, Nose normal. Respiratory: Normal breath sounds, No respiratory distress. Cardiovascular: Normal heart rate, Normal rhythm GI: Soft, No tenderness Neck/back: Normal range of motion, No tenderness, No stridor Extremities: Intact distal pulses, No edema, No tenderness, Good range of motion in all major joints. Skin: Warm, Dry, No erythema, No rash. Neurologic: Alert & oriented x 3, Normal motor function, Normal sensory function, No focal deficits noted. Psychiatric: Affect normal, Judgment normal, Mood normal. Medical Decision Making/ ED course: Problem list: Cough, difficulty breathing Differentials: COPD exacerbation, pneumonia, less likely fluid overload, difficulty with nebs, other Labs: Results for orders placed or performed during the hospital encounter of 05/27/24 CBC W/DIFF AUTOMATED Result Value Ref Range WBC 6.82 4.5 - 11.0 x10'3/uL RBC 5.13 4.20 - 5.40 x10'6/uL HGB 15.4 12.0 - 16.0 G/DL HCT 46.8 38.0 - 48.0 % MCV 91.2 81.0 - 99.0 FL MCH 30.0 27.0 - 31.0 PG MCHC 32.9 32.0 - 36.0 G/DL RDW 13.4 11.5 - 14.5 % PLT 279 130 - 400 x10'3/uL MPV 11.6 9.3 - 12.2 FL DIFFERENTIAL TYPE AUTOMATED DIFFERENTIAL NEUTROPHILS % 33.2 % LYMPHOCYTES % 43.4 % MONOCYTES % 6.6 % EOSINOPHILS 15.1 % BASOPHILS 1.6 % IMMATURE GRANS % 0.1 % ABS. NEUTROPHILS 2.26 1.80 - 7.70 x10'3/uL ABS. LYMPHOCYTES 2.96 1.00 - 4.80 x10'3/uL ABS. MONOCYTES 0.45 0.24 - 0.86 x10'3/uL ABS. EOSINOPHILS 1.03 (H) 0.04 - 0.36 x10'3/uL ABS. BASOPHILS 0.11 (H) 0.01 - 0.08 x10'3/uL ABS. IMMATURE GRANULOCYTES 0.01 0.00 - 0.49 x10'3/uL COMPREHENSIVE METABOLIC PANEL Result Value Ref Range GLUCOSE 102 (H) 70 - 99 MG/DL BUN 12 7 - 18 MG/DL CREATININE S/P/B 0.92 0.55 - 1.02 MG/DL SODIUM S/P/B 137 136 - 145 MMOL/L POTASSIUM S/P/B 3.1 (L) 3.5 - 5.1 MMOL/L CHLORIDE S/P/B 101 97 - 115 MMOL/L CO2 31.4 21 - 32 MMOL/L CALCIUM S/P/B 9.9 8.5 - 10.1 MG/DL BILIRUBIN TOTAL S/P/B 0.9 0.2 - 1.2 MG/DL TOTAL PROTEIN S/P/B 7.8 6.4 - 8.2 G/DL ALBUMIN S/P/B 3.8 3.4 - 5.0 G/DL AST 22 15 - 37 U/L ALT 27 14 - 55 U/L ALKALINE PHOSPHATASE S/P/B 75 50 - 136 U/L ANION GAP 4.6 2 - 10 MMOL/L BUN CREATININE RATIO 13.1 6 - 26 A/G RATIO 1.0 1.0 - 2.0 RATIO GFR ESTIMATE 61 (L) >90 ML/MIN/1.73 M2 TROPONIN, QUANT Result Value Ref Range TROPONIN I HIGH SENSITIVITY 7 <54 ng/L PRO-BRAIN NATRIURETIC PEPTIDE Result Value Ref Range PRO-B TYPE NATRIURETIC PEPTIDE 46 <450 PG/ML PROCALCITONIN (PCT) Result Value Ref Range Procalcitonin <0.05 0.00 - 0.49 NG/ML CORONAVIRUS (COVID 19) Specimen: NASAL Result Value Ref Range CORONAVIRUS SARS COV 2 RNA NEGATIVE NEGATIVE Specimen Type NASAL INFLUENZA A & B Specimen: NASOPHARYNGEAL SWAB Result Value Ref Range Specimen Type NASAL INFLUENZA A NEGATIVE NEGATIVE INFLUENZA B NEGATIVE NEGATIVE Imaging: XR CHEST PORTABLE Result Date: 05/27/2024 IMPRESSION: No significant change. No acute disease. Referred By: Interpreted By: Phillip Goldsmith MD, 05/27/2024 11:06 AM My independent interpretation of labs/imaging: White count normal. Patient afebrile. COVID and flu negative. I feel infectious etiologies are unlikely. Hemoglobin normal. Labs with mild hypokalemia. Troponin normal. No concern for fluid overload at this time. Chest x-ray without pneumonia Cardiac Rhythm strip ordered and independently interpretated as: Sinus rhythm. Rate of 78. First-degree AV block. Normal QTc. My independent interpretation of EKG: No ischemia My independent interpretation of pulse ox: Normal Consults: no emergent consult indicated Communication: I discussed the workup as well as plan of care when possible. I discussed medications as well as other therapies as needed. Daughter comfortable with the plan to take her home. Patient as well as family actually prefer this. Will discharge patient with steroids and will refill albuterol. Medications albuterol sulfate HFA 108 (90 Base) MCG/ACT inhaler 2 puff (2 puffs Inhalation Given 05/27/24 1019) predniSONE (DELTASONE) tablet 40 mg (40 mg Oral Given 05/27/24 1138) Clinical Impression COPD exacerbation ([facility]/HCC [facility]) (Primary) Disposition: Discharge Follow-Up: [facility] Emergency Room [facility] [id number] If symptoms worsen Please excuse any grammatical or spelling errors as this chart was likely documented using a dictation software. I, Madhavi Bolanos, acting as a scribe, am personally taking down the notes in the presence of Dr. Tee Carney,*. Take no action on this note until reviewed and authenticated by the physician. Tee Carney MD 05/27/24 [phone] * Scarlet Friend RN - 05/27/2024 9:35 AM CDT Pt presents ambulatory, but unsteady to triage with daughter c/o shortness of breath and wheezing since this am. Pt has dementia, so the daughter has cameras in the home and noticed at 0745 she couldhear and see the patient struggling with wheezing and breathing issues. Pt was not cooperative withneb treatment, but did use her inhaler multiple times . Hx of COPD. Pt appears cooperative and calm now. documented in this encounter Plan of Treatment Not on file documented as of this encounter Procedures Procedure Name Priority Date/Time Associated Diagnosis Comments XR CHEST PORTABLE STAT 05/27/2024 11: 04 AM CDT ECG 12-LEAD Routine 05/27/2024 10:02 AM CDT CORONAVIRUS (COVID 19) STAT 10:01 AM CDT INFLUENZA A & B STAT 05/27/2024 10:01 AM CDT PROCALCITONIN (PCT) Routine 05/27/2024 9 :49 AM CDT PRO-BRAIN NATRIURETIC PEPTIDE STAT 05/27/2024 9:49 AM CDT COMPREHENSIVE METABOLIC PANEL STAT 05/27/2024 9:49 AM CDT CBC W/DIFF AUTOMATED STAT 05/27/2024 9:49 AM CDT TROPONIN, QUANT STAT 05/27/2024 9:49 AM CDT documented in this encounter Results * XR CHEST PORTABLE (05/27/2024 11:04 AM CDT) Anatomical Region Laterality Modality Chest Radiographic Rachel ging 05/27/2024 11:0 6 AM CDT Impressions 05/27/2024 11:07 AM CDT IMPRESSION: No significant change. ??No acute disease. Referred By: ?? Interpreted By: Phillip Goldsmith MD, 05/27/2024 11:06 AM Narrative 05/27/2024 11:07 AM CDT [facility] [address] [place], [place] [address] Examination: Portable chest. Exam time: 1050 hours. Clinical history: Dyspnea. ??Wheezing. Comparison: 03/03/2024. Technique: ??AP ??upright view. Findings: Allowing for differences in projection and rotation, the cardiomediastinal silhouette is stable. ??Allowing for projection, the heart size is normal. ??Pulmonary vascularity is within normal limits. ??No acute infiltrates or effusions are identified. ??The visualized bony thorax is stable. Procedure Note Phillip Goldsmith MD - 05/27/[address] [address] Examination: Portable chest. Exam time: 1050 hours. Clinical history: Dyspnea. Wheezing. Comparison: 03/03/2024. Technique: AP upright view. Findings: Allowing for differences in projection and rotation, thecardiomediastinal silhouette is stable. Allowing for projection, theheart size is normal. Pulmonary vascularity is within normal limits. Noacute infiltrates or effusions are identified. The visualized bony thoraxis stable. IMPRESSION: No significant change. No acute disease. Referred By: Interpreted By: Phillip Goldsmith MD, 05/27/2024 11:06 AM us [facility] Final Resul t * ECG 12 lead (05/27/2024 10:02 AM CDT) 05/27/2024 10:0 2 AM CDT Narrative [facility] ([facility]) RAD - 05/27/2024 12:49 PM CDT ?[facility] [place] ? [address] [place] ? Test Date: ?2024-05-27 Pat Name: ? EATHER KASSANDRA ?Department: ?? 41 ? Room: ? Gender: ? Female ? 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 HW : ?[id number] ? Requested By: MANDY FELIXJASONLAURENT Order Number: [id number] ? Reading MD: ?? Tobias Haddad ? Measurements Intervals ?[place] ? Rate: ? 78 ? P: ?41 [place]: ? 214 ?QRS: ?33 QRSD: ? 98 ? T: ?81 QT: ? 417 ? QTc: ?476 ? Interpretive Statements SINUS RHYTHM WITH FIRST DEGREE AV BLOCK Compared to ECG 03/03/2024 11:25:20 First degree AV block now present No ischemic changes Preliminary EKG Interpretation by Tee Carney M.D. 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 us [facility] ECG ORDERABLES Final Resul t [facility] ([facility] RAD * INFLUENZA A & B (05/27/2024 10:01 AM CDT) SPECIMEN TYPE NASAL 05/27/2024 10:09 AM CDT [facility] INFLUENZA A NEGATIVE NEGATIVE 05/27/2024 10:30 AM CDT [facility] INFLUENZA B NEGATIVE NEGATIVE 05/27/2024 10:30 AM CDT [facility] Comment: Interpretation: Negative for Influenza A [...] a separate order. NASOPHARYNGEAL SWAB / Unknown 05/27/2024 10:01 AM CDT [facility] Final Result [facility] [address] [place] [address], * CORONAVIRUS (COVID 19) (05/27/2024 10:01 AM CDT) CORONAVIRUS SARS COV 2 RNA NEGATIVE NEGATIVE 05/27/2024 10:24 AM CDT [facility] Comment: NEGATIVE RESULTS DO NOT RULE [...] QUALITATIVE DETECTION OF SARS-COV-2. SPECIMEN TYPE NASAL 05/27/2024 10:01 AM CDT [facility] NASAL STRUCTURE / Unknown 05/27/2024 10:01 AM CDT [facility] - GENERAL [facility] FIELDGraeme VARGAS Final Result [facility] [address] [place] [address], * PROCALCITONIN (PCT) (05/27/2024 9:49 AM CDT) Procalcitonin <0.05 0.00 - 0.49 NG/ML 05/27/2024 12:11 PM CDT [facility] 05/27/2024 9:49 AM CDT [facility] Final Resul t Performing Organization Address [facility] Co de Phone Number [facility] [address] [place] [address], * PRO-BRAIN NATRIURETIC PEPTIDE (05/27/2024 9:49 AM CDT) PRO-B TYPE NATRIURETIC PEPTIDE 46 <450 PG/ML 05/27/2024 10:40 AM CDT [facility] Comment: CUT POINTS ESTABLISHED BY [...] OF 89% AND 72% FOR ACUTE CHF. 05/27/2024 9:49 AM CDT us [facility] Final Resul t Performing Organization Address [facility] Co de Phone Number [facility] [address] [place] [address], [place] [phone] * TROPONIN, QUANT (05/27/2024 9:49 AM CDT) TROPONIN I HIGH SENSITIVITY 7 <54 ng/L 05/27/2024 10:40 AM CDT [facility] Comment: HIGH DOSES OF BIOTIN, TROPONIN-SPECIFIC AUTOANTIBODIES, AND ANTIBODY THERAPY CONTAINING HAMA MAY INTERFERE WITH THIS TEST RESULT. CORRELATION TO CLINICAL HISTORY AND PRESENTATION RECOMMENDED. 05/27/2024 9:49 AM CDT [facility] Final Resul t [facility] [address] [place] [address], [place] [phone] * (ABNORMAL) COMPREHENSIVE METABOLIC PANEL (05/27/2024 9:49 AM CDT) GLUCOSE 102(H) 70 - 99 MG/DL 05/27/2024 10:40 AM CDT [facility] BUN 12 7 - 18 MG/DL 05/27/2024 10:40 AM CDT [facility] CREATININE S/P/B 0.92 0.55 - 1.02 MG/DL 05/27/2024 10:40 AM CDT [facility] SODIUM S/P/B 137 136 - 145 MMOL/L 05/27/2024 10:40 AM CDT [facility] POTASSIUM S/P/B 3.1(L) 3.5 - 5.1 MMOL/L 05/27/2024 10:40 AM CDT [facility] CHLORIDE S/P/B 101 97 - 115 MMOL/L 05/27/2024 10:40 AM CDT [facility] CO2 31.4 21 - 32 MMOL/L 05/27/2024 10:40 AM CDT [facility] CALCIUM S/P/B 9.9 8.5 - 10.1 MG/DL 05/27/2024 10:40 AM CDT [facility] BILIRUBIN TOTAL S/P/B 0.9 0.2 - 1.2 MG/DL 05/27/2024 10:40 AM CDT [facility] Comment: THIS ASSAY IS NOT RECOMMENDED FOR PATIENTS UNDERGOING TREATMENT WITH ELTROMBOPAG DUE TO THE POTENTIAL FOR FALSELY ELEVATED RESULTS. TOTAL PROTEIN S/P/B 7.8 6.4 - 8.2 G/DL 05/27/2024 10:40 AM CDT [facility] ALBUMIN S/P/B 3.8 3.4 - 5.0 G/DL 05/27/2024 10:40 AM CDT [facility] AST 22 15 - 37 U/L 05/27/2024 10:40 AM CDT [facility] ALT 27 14 - 55 U/L 05/27/2024 10:40 AM CDT [facility] ALKALINE PHOSPHATASE S/P/B 75 50 - 136 U/L 05/27/2024 10:40 AM CDT [facility] ANION GAP 4.6 2 - 10 MMOL/L 05/27/2024 10:40 AM CDT [facility] BUN CREATININE RATIO 13.1 6 - 26 05/27/2024 10:40 AM CDT [facility] A/G RATIO 1.0 1.0 - 2.0 RATIO 05/27/2024 10:40 AM T [facility] GFR ESTIMATE 61(L) >90 ML/MIN/1.7 3 M2 05/27/2024 10:40 AM T [facility] Comment: NOTE: eGFR is not calculated for patients <18 years of age or gender unknown. This is an estimated GFR calculation using the new CKD EPI creatinine equation without race and so does not require a correction factor for race. This estimated GFR should not be used for calculating drug doses. 05/27/2024 9:49 AM CDT us [facility] Final Resul t [facility] [address] [place] [address], [place] [phone] * (ABNORMAL) CBC W/DIFF AUTOMATED (05/27/2024 9:49 AM CDT) [facility] Signature WBC 6.82 4.5 - 11.0 x10'3/uL 05/27/2024 10:25 AM CDT [facility] RBC 5.13 4.20 - 5.40 x10'6/uL 05/27/2024 10:25 AM CDT [facility] HGB 15.4 12.0 - 16.0 G/DL 05/27/2024 10:25 AM CDT [facility] HCT 46.8 38.0 - 48.0 % 05/27/2024 10:25 AM CDT [facility] MCV 91.2 81.0 - 99.0 FL 05/27/2024 10:25 AM CDT [facility] MCH 30.0 27.0 - 31.0 PG 05/27/2024 10:25 AM CDT [facility] MCHC 32.9 32.0 - 36.0 G/DL 05/27/2024 10:25 AM CDT [facility] RDW 13.4 11.5 - 14.5 % 05/27/2024 10:25 AM CDT [facility] PLT 279 130 - 400 x10'3/uL 05/27/2024 10:25 AM CDT [facility] MPV 11.6 9.3 - 12.2 FL 05/27/2024 10:25 AM CDT [facility] DIFFERENTIAL TYPE AUTOMATED DIFFERENTIAL 05/27/2024 10:25 AM CDT [facility] NEUTROPHILS % 33.2 % 05/27/2024 10:25 AM CDT [facility] LYMPHOCYTES % 43.4 % 05/27/2024 10:25 AM CDT [facility] MONOCYTES % 6.6 % 05/27/2024 10:25 AM CDT [facility] EOSINOPHILS 15.1 % 05/27/2024 10:25 AM CDT [facility] BASOPHILS 1.6 % 05/27/2024 10:25 AM CDT [facility] IMMATURE GRANS % 0.1 % 05/27/20 10:25 AM CDT [facility] ABS. NEUTROPHILS 2.26 1.80 - 7.70 x10'3/uL 05/27/2024 10:25 AM CDT [facility] ABS. LYMPHOCYTES 2.96 1.00 - 4.80 x10'3/uL 05/27/2024 10:25 AM CDT [facility] ABS. MONOCYTES 0.45 0.24 - 0.86 x10'3/uL 05/27/2024 10:25 AM CDT [facility] ABS. EOSINOPHILS 1.03(H) 0.04 - 0.36 x10'3/uL 05/27/2024 10:25 AM CDT [facility] ABS. BASOPHILS 0.11(H) 0.01 - 0.08 x10'3/uL 05/27/2024 10:25 AM CDT [facility] ABS. IMMATURE GRANULOCYTES 0.01 0.00 - 0.49 x10'3/uL 05/27/2024 10:25 AM CDT [facility] 05/27/2024 9:49 AM CDT us [facility] Final Resul t [facility] [address] [place] [address], documented in this encounter Visit Diagnoses Diagnosis COPD exacerbation ([facility])- Primary Obstructive chronic bronchitis with exacerbation documented in this encounter Administered Medications Inactive Administered Medications - up to 3 most recent administrations Medication Order MAR Action Action Date Dose Rate Site albuterol sulfate HFA 108 (90 Base) MCG/ACT inhaler 2 puff 2 puff, Inhalation, Once, 1 dose, On 05/27/24 at 1015 Given 05/27/2024 10:19 AM CDT 2 puffs predniSONE (DELTASONE) tablet 40 mg 40 mg, Oral, Once, 1 dose, On 05/27/24 at 1130 Given 05/27/2024 11:38 AM CDT 40 mg documented in this encounter Active and Recently Administered Medications Times are shown in CDT. Scheduled Medication Order 05/25/2024 05/26/2024 05/27/2024 albuterol sulfate HFA 108 (90 Base) MCG/ACT inhaler 2 puff (COMPLETED) 2 puff, Inhalation, Once, 1 dose, On 05/27/24 at 1015 1019 (Given - Provid er: Bella Corbin, SUBMARINE ELEMENT COORDINATOR) predniSONE (DELTASONE) tablet 40 mg (COMPLETED) 40 mg, Oral, Once, 1 dose, On 05/27/24 at 1130 1138 (Given - Provid er: Tabby Amin RN) documented in this encounter Additional Health Concerns Infection Onset Date Last Indicated Resolved Time COVID-19 Rule Out 05/27/2024 05/27/2024 05/27/2024 10:24 AM CDT documented as of this encounter Care Teams Foreclosure Paralegal Relationship Specialty Start Date End Date None, Provider, PCP - General UNKNOWN PHYSICIAN SPECIALTY 03/03/24 1 10/04/23 documented as of this encounter
--- OUTSIDE RECORDS SUMMARY | 2024-09-18 11:36 | XMS_ITS | Encounter Summary ---
Author Organization [facility] Address [address] [place] [address]. [place], [place] [address] [place] [address] Care Team Providers Care Solaris Administrator Name Role Phone None, Provider MD Primary Care Provider Unavaila ble Reason for Referral * Imaging (Routine) - Closed Specialty Diagnoses / Procedures Referred By Contac t Referred To Contact RADIOLOGY Diagnoses Facial pain Jaw pain Procedures CT FACIAL BONES WO Rip Nogueira NP [address] [place] [address] Phone: tel: fax: Referral ID Status Reason Start Date Expiration Date Visits Re quested Visits Authorized [id number] Closed 06/13/2024 06/13/2025 1 1 Reason for Visit * Imaging (Routine) - Closed Specialty Diagnoses / Procedures Referred By Contac t Referred To Contact RADIOLOGY Diagnoses Facial pain Jaw pain Procedures CT FACIAL BONES WO Rip Nogueira NP [address] [place] [address] Phone: tel: fax: Referral ID Status Reason Start Date Expiration Date Visits Re quested Visits Authorized [id number] Closed 06/13/2024 06/13/2025 1 1 Encounter Details Date Type Department Care Team (Latest Contact Info) Description 06/14/2024 3:00 PM CDT - 06/14/2024 11:59 PM CDT Hospital Encounter [facility] [address] [place] [address] Rip Gibbs NP [address] [place] [address] Discharge Disposition: Home or Self Care (Routine [...] on file documented as of this encounter Medications at Time of Discharge albuterol sulfate HFA 108 (90 Base) MCG/ACT inhaler Inhale 2 puffs into the lungs every 6 (six) hours as needed. 18 g 05/27/2024 documented as of this encounter Plan of Treatment Not on file documented as of this encounter Procedures Procedure Name Priority Date/Time Associated Diagnosis Comments CT FACIAL BONES WO CON Routine 06/14/2024 3:10 PM CDT Facial pain Jaw pain documented in this encounter Results * CT FACIAL BONES WO CON (06/14/2024 3:10 PM CDT) Anatomical Region Laterality Modality Facial Computed Tomogra phy 06/17/2024 11:5 4 PM CDT Impressions 06/17/2024 11:59 PM CDT IMPRESSION: 1. 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 Could further evaluate with trigeminal nerve protocol MRI and/or MRI of the face without and with contrast. 2. No acute osseous osseous maxillofacial abnormalities identified. No overt inflammatory changes or fluid collections identified in the neck soft tissues. 3. Prominent atherosclerotic calcifications along the carotid arteries in the neck. Could further evaluate with follow-up duplex or CTA to assess for potential underlying significant stenosis. Referred By: RIP GIBBS Interpreted By: Rolando Cardoza MD, 06/17/2024 11:54 PM Narrative 06/17/2024 11:59 PM CDT [address] [address] EXAMINATION: CT facial bones without contrast CLINICAL HISTORY: Right-sided jaw and facial pain for 3 months. No injury COMPARISON: None TECHNIQUE: Maxillofacial CT examination without contrast was performed with axial and multiplanar images obtained. CT dose reduction techniques were utilized. FINDINGS: Motion artifact somewhat limits assessment of the mandible. The patient is edentulous. No definite acute facial fractures or destructive bony changes identified. No overt inflammatory changes or fluid collections seen within the facial soft tissues. There is symmetric atrophy of the bilateral masseter musculature Mild mucosal thickening in the paranasal sinuses. Visualized orbits unremarkable. No suspicious inflammation within the orbital fat. Partially imaged portions of the intracranial compartment reveal small vessel disease, vascular calcifications, and volume loss. Mastoid air cells clear. Prominent atherosclerotic calcifications noted along the carotid arteries in the neck. Carotid tortuosity and retropharyngeal course. Degenerative changes noted in the spine. Procedure Note Rolando Cardoza MD - 06/18/[address] [address] EXAMINATION: CT facial bones without contrast CLINICAL HISTORY: Right-sided jaw and facial pain for 3 months. No injury COMPARISON: None TECHNIQUE: Maxillofacial CT examination without contrast was performedwith axial and multiplanar images obtained. CT dose reduction techniqueswere utilized. FINDINGS: Motion artifact somewhat limits assessment of the mandible. The patient isedentulous. No definite acute facial fractures or destructive bony changesidentified. No overt inflammatory changes or fluid collections seen withinthe facial soft tissues. There is symmetric atrophy of the bilateralmasseter musculature Mild mucosal thickening in the paranasal sinuses.Visualized orbits unremarkable. No suspicious inflammation within theorbital fat. Partially imaged portions of the intracranial compartmentreveal small vessel disease, vascular calcifications, and volume loss.Mastoid air cells clear. Prominent atherosclerotic calcifications notedalong the carotid arteries in the neck. Carotid tortuosity andretropharyngeal course. Degenerative changes noted in the spine. IMPRESSION: 1. 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 Could furtherevaluate with trigeminal nerve protocol MRI and/or MRI of the face withoutand with contrast. 2. No acute osseous osseous maxillofacial abnormalities identified. Noovert inflammatory changes or fluid collections identified in the necksoft tissues. 3. Prominent atherosclerotic calcifications along the carotid arteries inthe neck. Could further evaluate with follow-up duplex or CTA to assessfor potential underlying significant stenosis. Referred By: RIP GIBBS Interpreted By: Rolando Cardoza MD, 06/17/2024 11:54 PM us Rip Gibbs [employer]PER[employer]OR [employer]SEMBL[employer] CT Final Res ult documented in this encounter Visit Diagnoses Diagnosis Facial pain Headache Jaw pain documented in this encounter Care Teams Solaris Administrator Relationship Specialty Start Date End Date None, Provider, PCP - General UNKNOWN PHYSICIAN SPECIALTY 03/03/24 1 10/04/23 documented as of this encounter
--- OUTSIDE RECORDS SUMMARY | 2024-09-18 11:36 | XMS_ITS | Encounter Summary ---
Author Organization [facility] Address Formerly [facility], [facility]. [place], [place] [address] [place] [address] Care Team Providers Care County Home Demonstrator Name Role Phone None, Provider Primary Care Provider Unavaila ble Encounter Details Date Type Department Care Team (Latest Contact Info) Description 06/14/2024 Travel Social History Tobacco Use Types Packs/Day [...] on filedocumented in this encounter Care Teams County Home Demonstrator Relationship Specialty Start Date End Date None, Provider, PCP - General UNKNOWN PHYSICIAN SPECIALTY 03/03/24 1 10/04/23 documented as of this encounter
--- OUTSIDE RECORDS SUMMARY | 2024-09-18 11:36 | XMS_ITS | Clinical Summary ---
Author Organization [facility] Address [facility] [place] [address] [place] [address] Care Team Providers Care Layout Artist Name Role Phone Arti Gibbs NP Primary Care Provider [phone] Allergies No known active allergies Medications albuterol sulfate HFA 108 (90 Base) MCG/ACT inhaler Inhale 2 puffs into the lungs every 6 (six) hours as needed. 18 g 4 Active amLODIPine (NORVASC) 10 MG tablet Take 1 tablet (10 mg total) by mouth daily. Active Aspirin 81 MG Cap Take 81 mg by mouth daily. Active atorvastatin (LIPITOR) 20 MG tablet Take 1 tablet (20 mg total) by mouth every morning. 4 Active chlorthalidone (HYGROTEN) 25 MG tablet Take 1 tablet (25 mg total) by mouth daily. Active Docusate Sodium (DSS) 100 MG Cap Take 100 mg by mouth 2 (two) times daily as needed (constipation). Active ADVAIR HFA 115-21 MCG/ACT inhaler Inhale 2 puffs into the lungs 2 (two) times daily. Active loratadine (CLARITIN) 10 MG tablet Take 1 tablet (10 mg total) by mouth daily. Active memantine (NAMENDA) 10 MG tablet Take 1 tablet (10 mg total) by mouth daily. 4 Active potassium chloride CR (K-TAB) 10 MEQ Tab CR tablet Take 1 tablet (10 mEq total) by mouth daily. Active albuterol (PROVENTIL) (2.5 MG/3ML) 0.083% nebulizer solution Take by nebulization 3 (three) times daily. Active multi vitamin/mineral s (THERA-M ENHANCED) tablet Take 1 tablet by mouth daily. Active calcium carbonate-vitam in D (OSCAL + D) 500-5 MG-MCG Tab tablet Take 1 tablet by mouth daily. Active azithromycin (ZITHROMAX) 250 MG tablet Take 2 tablets by mouth on day one then 1 daily for four days. 6 tablet 4 Active guaiFENesin-cod eine (GUAIATUSSIN AC) 100-10 MG/5ML syrupIndication s:Cough Take 10 mLs by mouth every 12 (twelve) hours as needed for Cough. Indications: Cough 118 mL 4 Active albuterol sulfate HFA 108 (90 Base) MCG/ACT inhaler Inhale 2 puffs into the lungs every 6 (six) hours as needed. 8 g 4 Active budesonide-form oterol (SYMBICORT) 160-4.5 MCG/ACT inhaler Inhale 2 puffs into the lungs 2 (two) times daily. 6 g 4 Active Encounters Date Type Department Care Team Description 08/05/2024 11:53 AM TAFE TEACHER - 08/05/2024 4:51 PM TAFE TEACHER Emergency [facility] [place] [address] Wisam Robles PA Shortness Of Breath Discharge Disposition: Home or Self Care (Routine Discharge) 08/05/2024 Travel from Last 3 Months Social History Tobacco Use Types Packs/Day Years [...] on file Sexual Orientation Not on file Last Filed Vital Signs Vital Sign Reading Time Taken Comments Blood Pressure 131/67 08/05/2024 11:44 AM TAFE TEACHER Pulse 100 08/05/2024 11:44 AM TAFE TEACHER Temperature 37.1 ??C (98.8 ??F) 08/05/2024 11:[address] Respiratory Rate 20 08/05/2024 11:44 AM TAFE TEACHER Oxygen Saturation 100% 08/05/2024 11:44 AM TAFE TEACHER Inhaled Oxygen Concentration - - Weight 83 kg (182 lb 15.7 oz) 08/05/2024 11:47 A M TAFE TEACHER Height 164 cm (5' 4.57 ) 08/05/2024 11:47 AM TAFE TEACHER Body Mass Index 30.86 08/05/2024 11:47 AM TAFE TEACHER Plan of Treatment Health Maintenance Due Date Last Done Comments DTaP, Tdap and Td Vaccines ( 1 - Tdap) 1957 Zoster Vaccines (1 of 2) 1988 Annual Medicare Wellness Visit 2003 RSV Immunization or 60+ Years (1 - 1-dose 75+ series) 2013 COVID-19 Vaccine (2023-2 5 season) 2024 09/20/2021, 03/12/2021, 02/19/2021 Influenza Adult (#1) 2024 07/20/2019, 05/25/2017 Pneumococcal Vaccine: 65+ Years Completed 07/20/2019, 05/25/2017, 07/05/2015 Meningococcal Vaccine Aged Out No barrera armin eligible based on patient's age to complete this topic RSV Immunizations Under 20 Months Aged Out No longer eligible b ased on patient's age to complete this topic Procedures Procedure Name Priority Date/Time Associated Diagnosis Comments CTA CHEST PE PROTOCOL STAT 08/05/2024 3:34 PM TAFE TEACHER INFLUENZA A & B STAT 08/05/2024 1:13 PM TAFE TEACHER CORONAVIRUS (COVID 19) STAT 1:13 PM TAFE TEACHER XR CHEST PA+LAT STAT 08/05/2024 12:45 PM TAFE TEACHER ECG 12-LEAD Routine 08/05/2024 12:17 PM TAFE TEACHER PRO-BRAIN NATRIURETIC PEPTIDE STAT 08/05/2024 12:11 PM TAFE TEACHER TROPONIN, QUANT STAT 08/05/2024 12:11 PM TAFE TEACHER COMPREHENSIVE METABOLIC PANEL STAT 08/05/2024 12:11 PM TAFE TEACHER CBC W/DIFF AUTOMATED STAT 08/05/2024 12:11 PM TAFE TEACHER from Last 3 Months Results * CTA CHEST PE PROTOCOL (08/05/2024 3:34 PM TAFE TEACHER) Anatomical Region Laterality Modality Chest Computed Tomogra phy 08/05/2024 3:49 PM TAFE TEACHER Impressions 08/05/2024 3:57 PM TAFE TEACHER IMPRESSION: Compression fracture inferior endplate of L1. Age indeterminate. No cortical irregularity. Sclerosis is present. No pulmonary artery embolism in the main pulmonary arteries or proximal segmental branches. Noncalcified nodule 1 mm right middle lobe. Follow-up should be based on risk factors. The patient is at low risk for pulmonary neoplastic process and no further follow-up recommended,( Kristoferner 2017 recommendations) Referred By: ?? Interpreted By: Esequiel Burris MD, 08/05/2024 3:49 PM Narrative 08/05/2024 3:57 PM TAFE TEACHER [address] [address] Procedure(s): CTA CHEST PE PROTOCOL Date of [...] Procedure Note Esequiel Burris MD - 08/05/[address] [address] Procedure(s): CTA CHEST PE PROTOCOL Date of [...] pulmonary neoplastic processand no further follow-up recommended,( Cuate 2017 recommendations) Referred By: Interpreted By: Esequiel Burris MD, 08/05/2024 3:[address] Final Resul t * CORONAVIRUS (COVID 19) (08/05/2024 1:13 PM TAFE TEACHER) CORONAVIRUS SARS COV 2 RNA NEGATIVE NEGATIVE 08/05/2024 1:45 PM TAFE TEACHER [facility] Comment: NEGATIVE RESULTS DO NOT RULE [...] SARS-COV-2. SPECIMEN TYPE NASAL 08/05/2024 1:14 PM TAFE TEACHER [facility] NASAL STRUCTURE / Unknown 08/05/2024 1:13 PM TAFE TEACHER Wisam MCNEAL MICROBIOLOGY - GENERAL ORDE RABLES Final Result [facility] [address] [place] [address], [place] [phone] * INFLUENZA A & B (08/05/2024 1:13 PM TAFE TEACHER) SPECIMEN TYPE NASAL 08/05/2024 1:21 PM TAFE TEACHER [facility] INFLUENZA A NEGATIVE NEGATIVE 08/05/2024 1:45 PM TAFE TEACHER [facility] INFLUENZA B NEGATIVE NEGATIVE 08/05/2024 1:45 PM TAFE TEACHER [facility] Comment: Interpretation: Negative for Influenza A [...] NASOPHARYNGEAL SWAB / Unknown 08/05/2024 1:13 PM TAFE TEACHER Wisam MCNEAL MICROBIOLOGY - GENERAL ORDGraeme VARGAS Final Result [facility] [address] [place] [address], * XR CHEST PA+LAT (08/05/2024 12:45 PM TAFE TEACHER) Anatomical Region Laterality Modality Chest Radiographic Rachel ging 08/05/2024 12:4 7 PM TAFE TEACHER Impressions 08/05/2024 12:48 PM TAFE TEACHER =====IMPRESSION:===== No radiographic evidence of active chest disease. Ordered By: RACQUEL RAMIREZ Interpreted By: Ace Chiang MD, 08/05/2024 12:47 PM Narrative 08/05/2024 12:48 PM TAFE TEACHER [facility] [address] [place], [place] [address] Examination: Chest x-ray 2 view Exam date/time: [...] Procedure Note Ace Chiang MD - 08/05/[address] [address] Examination: Chest x-ray 2 view Exam date/time: [...] Ace Chiang MD, 08/05/2024 12:47 PM Racquel Ramirez [place] GENERAL IMAGING Final Resul t * ECG 12 lead (08/05/2024 12:17 PM TAFE TEACHER) 08/05/2024 12:1 7 PM TAFE TEACHER Narrative [facility] RAD - 08/05/2024 3:20 PM TAFE TEACHER ?[facility] ? [address], [place] ? Test Date: ?2024-08-05 Pat Name: ? EATHER KASSANDRA ?Department: ?? 41 ? Room: ? Gender: ? Female ? Puppet Developer: ?? : ?1940 ? Requested By: RACQUEL RAMIREZ Order Number: [id number] ? Reading MD: ?? Shiyam Satwani ? Measurements Intervals ?[place] ? Rate: ? 98 ? P: ?51 KS: ? 208 ?QRS: ?47 QRSD: ? 98 ? T: ?71 QT: ? 379 ? QTc: ?486 ? Interpretive Statements SINUS RHYTHM MINIMAL ST DEPRESSION ??[0.025+ mV ST DEPRESSION] Prolonged QT interval Compared to ECG 05/27/2024 10:02:21 ST (T wave) deviation now present First degree AV block no longer present Prolonged QT interval TEACHER Procedure Note Mary Mixon MD - 08/05/2024 [facility] [address] Test Date: 2024-08-05 Pat Name: HEIDI BARKER Department: 41 Room: Gender: Female Puppet Developer: : 1940 Requested By: RACQUEL RAMIREZ Order Number: [id number] Reading MD: Mary Mixon Measurements Intervals [place] Rate: 98 P: 51 KS: 208 QRS: 47 QRSD: 98 T: 71 QT: 379 QTc: 486 Interpretive Statements SINUS RHYTHM MINIMAL ST DEPRESSION [0.025+ mV ST DEPRESSION] Prolonged QT interval Compared to ECG 05/27/2024 10:02:21 ST (T wave) deviation now present First degree AV block no longer present Prolonged QT interval TEACHER us Racquel MCNEAL ECG ORDERABLES Final Resul t [facility] RAD * PRO-BRAIN NATRIURETIC PEPTIDE (08/05/2024 12:11 PM TAFE TEACHER) PRO-B TYPE NATRIURETIC PEPTIDE 134 <450 PG/ML 08/05/2024 12:57 PM TAFE TEACHER [facility] Comment: CUT POINTS ESTABLISHED BY INTERNATIONAL [...] FOR ACUTE CHF. 08/05/2024 12:1 1 PM TAFE TEACHER us Racquel Ramirez PA LABORATORY Final Resul t [facility] [address] [place] [address], * (ABNORMAL) COMPREHENSIVE METABOLIC PANEL (08/05/2024 12:11 PM TAFE TEACHER) Pathologist [facility] GLUCOSE 99 70 - 99 MG/DL 08/05/2024 12:57 PM TAFE TEACHER [facility] BUN 11 7 - 18 MG/DL 08/05/2024 12:57 PM TAFE TEACHER [facility] CREATININE S/P/B 1.00 0.55 - 1.02 MG/DL 08/05/2024 12:57 PM TAFE TEACHER [facility] SODIUM S/P/B 135(L) 136 - 145 MMOL/L 08/05/2024 12:57 PM TAFE TEACHER [facility] POTASSIUM S/P/B 3.4(L) 3.5 - 5.1 MMOL/L 08/05/2024 12:57 PM TAFE TEACHER [facility] Comment:SLIGHT HEMOLYSIS, RE SULT MAY BE AFFECTED. CHLORIDE S/P/B 99 97 - 115 MMOL/L 08/05/2024 12:57 PM [facility] CO2 30.1 21 - 32 MMOL/L 08/05/2024 12:57 PM [facility] CALCIUM S/P/B 10.2(H) 8.5 - 10.1 MG/DL 08/05/2024 12:57 PM [facility] BILIRUBIN TOTAL S/P/B 0.6 0.2 - 1.2 MG/DL 08/05/2024 12:57 PM [facility] Comment: THIS ASSAY IS NOT RECOMMENDED FOR PATIENTS UNDERGOING TREATMENT WITH ELTROMBOPAG DUE TO THE POTENTIAL FOR FALSELY ELEVATED RESULTS. TOTAL PROTEIN S/P/B 7.6 6.4 - 8.2 G/DL 08/05/2024 12:57 PM [facility] ALBUMIN S/P/B 3.7 3.4 - 5.0 G/DL 08/05/2024 12:57 PM [facility] AST 46(H) 15 - 37 U/L 08/05/2024 12:57 PM [facility] Comment:SLIGHT HEMOLYSIS, RE SULT MAY BE AFFECTED. ALT 33 14 - 55 U/L 08/05/2024 12:57 PM [facility] ALKALINE PHOSPHATASE S/P/B 81 50 - 136 U/L 08/05/2024 12:57 PM [facility] ANION GAP 5.9 2 - 10 MMOL/L 08/05/2024 12:57 PM [facility] BUN CREATININE RATIO 11.0 6 - 26 08/05/2024 12:57 PM [facility] A/G RATIO 0.9(L) 1.0 - 2.0 RATIO 08/05/2024 12:57 PM [facility] GFR ESTIMATE 55(L) >90 ML/MIN/1.7 3 M2 08/05/2024 12:57 PM TAFE TEACHER [facility] Comment: NOTE: eGFR is not calculated for patients <18 years of age or gender unknown. This is an estimated GFR calculation using the new CKD EPI creatinine equation without race and so does not require a correction factor for race. This estimated GFR should not be used for calculating drug doses. 08/05/2024 12:1 1 PM TAFE TEACHER us Racquel MCNEAL LABORATORY Final Resul t [facility] [address] [place] [address], * (ABNORMAL) CBC W/DIFF AUTOMATED (08/05/2024 12:11 PM TAFE TEACHER) WBC 7.34 4.5 - 11.0 x10'3/uL 08/05/2024 12:52 PM TAFE TEACHER [facility] RBC 4.84 4.20 - 5.40 x10'6/uL 08/05/2024 12:52 PM [facility] HGB 14.4 12.0 - 16.0 G/DL 08/05/2024 12:52 PM [facility] HCT 43.2 38.0 - 48.0 % 08/05/2024 12:52 PM TAFE TEACHER [facility] MCV 89.3 81.0 - 99.0 FL 08/05/2024 12:52 PM TAFE TEACHER [facility] MCH 29.8 27.0 - 31.0 PG 08/05/2024 12:52 PM TAFE TEACHER [facility] MCHC 33.3 32.0 - 36.0 G/DL 08/05/2024 12:52 PM [facility] RDW 13.5 11.5 - 14.5 % 08/05/2024 12:52 PM TAFE TEACHER [facility] PLT 327 130 - 400 x10'3/uL 08/05/2024 12:52 PM [facility] MPV 11.5 9.3 - 12.2 FL 08/05/2024 12:52 PM [facility] DIFFERENTIAL TYPE MANUAL DIFFERENTIAL 08/05/2024 12:59 PM TAFE TEACHER [facility] SEG NEUTROPHILS 45 % 12:59 PM TAFE TEACHER [facility] LYMPHOCYTES 37 % 08/05/2024 12:59 PM [facility] MONOCYTES 6 % 08/05/2024 12:59 PM [facility] EOSINOPHILS 7 % 08/05/2024 12:59 PM TAFE TEACHER [facility] BASOPHILS 5 % 08/05/2024 12:59 PM TAFE TEACHER [facility] ABS. NEUTROPHILS 3.30 1.80 - 7.70 x10'3/uL 08/05/2024 12:59 PM TAFE TEACHER [facility] ABS. LYMPHOCYTES 2.72 1.00 - 4.80 x10'3/uL 08/05/2024 12:59 PM TAFE TEACHER [facility] ABS. MONOCYTES 0.44 0.24 - 0.86 x10'3/uL 08/05/2024 12:59 PM TAFE TEACHER [facility] ABS. EOSINOPHILS 0.51(H) 0.04 - 0.36 x10'3/uL 08/05/2024 12:59 PM [facility] ABS. BASOPHILS 0.37(H) 0.01 - 0.08 x10'3/uL 08/05/2024 12:59 PM [facility] RBC MORPHOLOGY RBC MORPHOLOGY APPEARS NORMAL. SLIDE REVIEWED. 08/05/2024 12:59 PM [facility] PLT EST. ADEQUATE 08/05/2024 12:59 PM TAFE TEACHER [facility] 08/05/2024 12:1 1 PM TAFE TEACHER Racquel MCNEAL LABORATORY Final Resul t Performing Organization Address City/[facility]/ZIP Co de Phone Number [facility] [address] [place] [address], [place] [phone] * TROPONIN, QUANT (08/05/2024 12:11 PM TAFE TEACHER) TROPONIN I HIGH SENSITIVITY 8 <54 ng/L 08/05/2024 12:57 PM TAFE TEACHER [facility] Comment: HIGH DOSES OF BIOTIN, TROPONIN-SPECIFIC AUTOANTIBODIES, AND ANTIBODY THERAPY CONTAINING HAMA MAY INTERFERE WITH THIS TEST RESULT. CORRELATION TO CLINICAL HISTORY AND PRESENTATION RECOMMENDED. 08/05/2024 12:1 1 PM TAFE TEACHER Racquel MCNEAL LABORATORY Final Resul t Performing Organization Address City/[facility] Co de Phone Number [facility] [address] [place] [address], [place] [phone] from Last 3 Months Insurance [facility] Care Teams Layout Artist Relationship Specialty Start Date End Date Arti Gibbs NP [address] [place] [address] PCP - General Nurse Practitioner Family 08/05/24
--- OUTSIDE RECORDS SUMMARY | 2024-09-18 11:36 | XMS_ITS | Patient Health Summary ---
Author Organization [facility] Address [address] [place] [address] Care Team Providers Care Puppet Master Name Role Phone Stephen Anguiano MD Primary Care Provider [phone] Note from [facility],non-owned Affiliates and Associated Physician Practices is amultiple site organization consisting of ambulatory clinics and hospital sitesin [place], [place], [place] and [place]. This disclosure is being madepursuant to the Care Everywhere program and may not contain all information available regarding this patient. Last updated 18.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 Scanned Document SCANNING ONLY Care Teams Puppet Master Relationship Specialty Start Date End Date Stephen Anguiano MD [address] [place] [phone] PCP - General 12/27/15
--- OUTSIDE RECORDS SUMMARY | 2024-09-18 11:36 | XMS_ITS | Referral Summary ---
Author Organization [facility] Address [address] [facility] [place] [address] Care Team Providers Care Bleach Supervisor Name Role Phone Stephen Anguiano MD Primary Care Provider [phone] Source Comments [facility],non-owned Affiliates and Associated Physician Practices is amultiple site organization consisting of ambulatory clinics and hospital sitesin [place], [place]. This disclosure is being madepursuant to the Care Everywhere program and may not contain all information available regarding this patient. Last updated 18.[facility] Encounters Date Type Department Care Team Description 07/10/2024 Travel from Last 3 Months Active Problems Problem Noted Date Diagnosed Date [...] Orientation Not on file Plan of Treatment Not on file Care Teams Bleach Supervisor Relationship Specialty Start Date End Date Stephen Anguiano MD [address] [place] [id number] PCP - General 12/27/15
--- OUTSIDE RECORDS SUMMARY | 2024-09-18 11:36 | XMS_ITS | Encounter Summary ---
Author Organization [facility] Address [facility] [place], [place] [address] [place] [address] Care Team Providers Care Real Estate Services Administrator Name Role Phone None, Provider Primary Care Provider Unavaila ble Encounter Details Date Type Department Care Team (Latest Contact Info) Description 03/03/2024 Travel Social History Tobacco Use Types Packs/Day Years Used Date Smoking Tobacco: Never Smokeless Tobacco: Former Chew Comments No Sex and Gender Information Value Date Recorded Sex Assigned at Not on file Legal Sex Female 8:45 AM CDT Gender Identity Not on file Sexual Orientation Not on file documented as of this encounter Plan of Treatment Not on file documented as of this encounter Visit Diagnoses Not on filedocumented in this encounter Care Teams Real Estate Services Administrator Relationship Specialty Start Date End Date None, Provider, PCP - General UNKNOWN PHYSICIAN SPECIALTY 03/03/24 1 10/04/23 documented as of this encounter
--- OUTSIDE RECORDS SUMMARY | 2024-09-18 11:37 | XMS_ITS | Encounter Summary ---
Author Organization [facility] Address [address] [facility] [address] [place] [address] Care Team Providers Care Starch Factory Laborer Name Role Phone Stephen Agnuiano MD Primary Care Provider [phone] Encounter Details Date Type Department Care Team (Late st Contact Info) Description 11/15/2019 Orders Only [facility] Health Information Management [address] [place] [address] Scanning, Provider Social History Tobacco Use Types Packs/Day Years Used Date Smoking Tobacco: Never Smokeless Tobacco: Current Chew Comments:ocas uses chew Alcohol Use Standard Drinks/Week Comments Yes 0 (1 standard drink = 0.6 oz pur e alcohol) rarely Comments Unknown Sex and Gender Information Value Date Recorded Sex Assigned at Not on file 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 Gender Identity Not on file Sexual Orientation Not on file documented as of this encounter Plan of Treatment Not on file documented as of this encounter Procedures Procedure Name Priority Date/Time Associated Diagnosis Comments PULMONARY - RESULT SCAN 12/11/2019 documented in this encounter Results * PULMONARY - RESULT SCAN (12/11/2019) Anatomical Region Laterality Modality Other us Provider Scanning Edited Result - Final documented in this encounter Visit Diagnoses Not on filedocumented in this encounter Care Teams Starch Factory Laborer Relationship Specialty Start Date End Date Stephen Anguiano MD [address] [place] [address] PCP - General 02/25/19 06/18/23 documented as of this encounter
--- OUTSIDE RECORDS SUMMARY | 2024-09-18 11:37 | XMS_ITS | Encounter Summary ---
Author Organization [facility] Healthcare Address [address] [place] [address] Care Team Providers Care Peel Oven Tender Name Role Phone Stephen Anguiano MD Primary Care Provider [phone] Encounter Details Date Type Department Care Team (Late st Contact Info) Description 02/26/2019 10:49 PM CDT - 02/27/2019 1:58 AM CDT Hospital Encounter [facility] Emergency Department [address] [place] [address] Unknown, Dimitri Perdomo MD [facility] [place], [place] [id number] Discharge Disposition: Discharge to home or self care Social History Tobacco Use Types Packs/Day Years Used Date Smoking Tobacco: Never Assessed Comments Unknown Sex and Gender Information Value Date Recorded Sex Assigned at Not on file 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 Gender Identity Not on file Sexual Orientation Not on file documented as of this encounter Last Filed Vital Signs Vital Sign Reading Time Taken Comments Blood Pressure 162/80 02/26/2019 10:53 PM CDT Pulse 103 02/26/2019 10:53 PM CDT Temperature 36.8 ??C (98.2 ??F) 02/26/2019 10:53 PM C DT Respiratory Rate - - Oxygen Saturation 96% 02/26/2019 10:53 PM CDT Inhaled Oxygen Concentration - - Weight 88.7 kg (195 lb 8.8 oz) 02/26/2019 10:53 PM CDT Height 172.7 cm (5' 8 ) 02/26/2019 10:53 PM CDT Body Mass Index 29.73 02/26/2019 10:53 PM CDT documented in this encounter Discharge Disposition Disposition Code Departure Means Destination Discharge to home or self care documented in this encounter Plan of Treatment Not on file documented as of this encounter Procedures Procedure Name Priority Date/Time Associated Diagnosis Comments URINALYSIS AND REFLEX TO MICROSCOPIC AND CULTURE Routine 02/27/2019 12:00 AM CDT SEPSIS LACTATE Routine 02/26/2019 11:26 PM CDT CBC WITH AUTO DIFFERENTIAL Routine 02/26/2019 11:26 PM CDT COMPREHENSIVE METABOLIC PANEL Routine 02/26/2019 11:26 PM CDT XR CHEST PA LATERAL 2 VIEWS 02/26/2019 12:00 AM CDT documented in this encounter Results * (ABNORMAL) Urinalysis reflex to microscopic and culture (02/27/2019 12:00 AM CDT) Ur Collection Type STRAIGHT CATH [facility] Ur Culture Indicated? C S NOT INDICATED [facility] Urine Color YELLOW YELLOW [facility] Urine Clarity [facility] Urine Glucose (UA) NORMAL NORMAL mg/dL [facility] Urine Bilirubin NEGATIVE NEGATIVE mg/dl [facility] Urine Ketones 5(A) NEGATIVE mg/dL [facility] Ur Specific [place] 1.008 1.005 - 1.025 [facility] Urine Blood NEGATIVE NEGATIVE mg/dl [facility] Urine pH 5.0 5.0 - 8.0 [facility] Urine Protein NEGATIVE NEGATIVE mg/dL [facility] Urine Urobilinogen NORMAL NORMAL mg/dL [facility] Urine Nitrite NEGATIVE NEGATIVE [facility] Ur Leukocyte Esterase NEGATIVE NEGATIVE Lisa/ul [facility] Ur Microscopic Review Not Indicated [facility] 02/27/2019 02/27/2019 12: 15 AM CDT Narrative [facility] - 02/27/2019 12:24 AM CDT Indication(s) for ordering ?? Other - enter in comments LD sepsis Straight catheter Resulting Agency Comment ER us Dimitri Mckenna MD LAB MICROBIOLOGY - GEN ERAL ORDERABLES Final Result [facility] [address] [place] [address], [facility] [phone] * CBC with auto differential (02/26/2019 11:26 PM CDT) WBC 8.2 3.8 - 9.9 X10 3/ul [facility] RBC 4.23 3.90 - 5.20 x10 6/ul [facility] Hemoglobin 13.0 11.9 - 15.5 g/dL [facility] Hct 38.2 35.6 - 45.5 % [facility] MCV 90.3 81.3 - 96.4 fl [facility] MCH 30.7 27.1 - 33.3 pg [facility] MCHC 34.0 32.3 - 35.7 g/dl [facility] RDW 14.2 11.1 - 14.9 % [facility] Plt Count 281 150 - 400 x10 3/ul [facility] MPV 10.8 9.1 - 12.3 fl [facility] Neut % 74.4 % [facility] Immature Gran % 0.5 % [facility] Lymph % 18.4 % [facility] [place] % 6.6 % [facility] Eos % 0.0 % [facility] AUTO BASO % 0.1 % [facility] NEUTROPHIL ABS # 6.1 1.7 - 6.5 x10 3/ul [facility] Immature Gran # 0.0 0.0 - 0.1 x10 3/ul [facility] Absolute Lymphs (auto) 1.5 0.8 - 3.3 x10 3/ul [facility] Absolute Monos (auto) 0.5 0.2 - 0.8 x10 3/ul [facility] Absolute Eos (auto) 0.0 0.0 - 0.5 x10 3/ul [facility] BASOPHIL ABS # 0.0 0.0 - 0.1 x10 3/ul [facility] Nucleat RBC Rel Count 0.0 #/100WBC [facility] NRBC abs 0.00 0.00 - 0.01 x10 3/ul [facility] Absolute Neutrophils 6,100 200 - 8,000 /ul [facility] 02/26/2019 11:2 6 PM CDT 02/26/2019 11:33 PM CDT Narrative Resulting Agency Comment ER us Dimitri Mckenna MD LAB BLOOD [place] [address], [facility] [phone] * (ABNORMAL) Comprehensive metabolic panel (02/26/2019 11:26 PM CDT) Sodium 138 135 - 145 mmol/L [facility] Potassium 3.3 3.3 - 5.1 mmol/L [facility] Chloride 99 96 - 108 mmol/L [facility] Carbon Dioxide 24 22 - 32 mmol/L [facility] Anion Gap 15 7 - 16 [facility] Glucose 154(H) 70 - 100 mg/dL [facility] BUN 12 8 - 25 mg/dL [facility] Comment: Results reviewed Creatinine 0.8 0.5 - 1.1 mg/dL [facility] Comment: NOTE: Estimated GFR (Cockroft-Gault) will NOT be calculated unless patient Height and Weight were entered. Also, Kidney Disease Stage (GFR) and Estimated GFR (Cockroft-Gault) will NOT be calculated if Creatinine result is <0.2. Kidney Disease Stage 89 mL/MIN [facility] Comment: NOTE; ??The GFR is an estimated value using the creatinine, sex, age, and race of the patient. THE Estimated Kidney Disease GFR is validated for AGES 18-70 YEARS STAGE ?mL/Min ?DESCRIPTION ??1 ?90 mL/min or more ?Normal or elevated GFR ??2 ? 60-89 mL/min ?Mildly decreased GFR ??3 ? 30-59 mL/min ?Moderately decreased GFR ??4 ? 15-29 mL/min ?Severely decreased GFR ??5 ? <15 mL/min ? Kidney failure or on dialysis Est GFR (Cockcroft-G) 65 ml/MIN [facility] Comment: Estimated GFR(Cockroft-Gault)is used to calculate patient medication dosage Calcium 9.8 8.6 - 10.3 mg/dL [facility] Total Protein 7.0 6.4 - 8.3 g/dL [facility] Albumin 4.1 3.5 - 5.0 g/dL [facility] Globulin 2.9 2.3 - 3.5 gm/dL [facility] Albumin/Globulin Ratio 1.4 1.1 - 1.8 [facility] Total Bilirubin 0.4 0.0 - 1.2 mg/dL [facility] AST 35(H) 0 - 32 U/L [facility] ALT 31 0 - 33 U/L [facility] Alkaline Phosphatase 68 35 - 104 U/L [facility] 02/26/2019 11:2 6 PM CDT 02/26/2019 11:33 PM CDT Narrative Resulting Agency Comment ER us Dimitri Mckenna MD LAB BLOOD ORDERABLES F inal Result [facility] [address] [place] [address], [facility] [phone] * Sepsis Lactate (02/26/2019 11:26 PM CDT) Sepsis lactate 1.4 mmol/L [facility] Comment: Lactate Reference Range: 0.5 - 2.2 mmol/L 02/26/2019 11:2 6 PM CDT 02/26/2019 11:33 PM CDT Narrative Resulting Agency Comment ER us Dimitri Mckenna MD LAB BLOOD ORDERAB[place] [address], [facility] [phone] * XR Chest Pa Lateral 2 Views (02/26/2019 12:00 AM CDT) Anatomical Region Laterality Modality Body, Chest N/A Radiographic Rachel ging 02/26/2019 11:5 5 PM CDT Narrative 02/26/2019 11:56 PM CDT Patient Name: HEIDI BARKER ?Ordering Dr: Dimitri Mckenna MD ?? D.O.B: 1940 ? Exam Date: 02/26/19 ?? 0000 ?? Age: 78 ?Sex: Female ? MR#: [id number] ?? Loc: ? RADIOLOGY REPORT ?? Order #[id number] ?? Radiology ? Chest 2 Views ? Signed ? EXAM DESCRIPTION: ??Chest 2 Views ? REASON FOR STUDY: ??cough x 3 weeks ? TECHNIQUE: ?? Frontal and lateral views of the chest. ? COMPARISON: ??02/25/2019 ? FINDINGS: ? LUNGS AND PLEURA: No focal airspace opacity, pleural effusion, or pneumothorax ?? identified. ? HEART/MEDIASTINUM: Trachea midline. Cardiac silhouette normal in size. ?? Mediastinal contours appear normal. ? BONES: Unremarkable. ? UPPER ABDOMEN: Unremarkable. ? IMPRESSION: ??No pneumonia or other acute abnormality identified. ? THIS IS AN ELECTRONICALLY VERIFIED FINAL REPORT ?? 02/26/2019 11:56 PM - Electronically signed by Vidal Cuevas M.D. ?? Vidal Cuevas M.D. ? AR: AR ?? D: ??02/26/2019 11:56 PM ?? T: ??02/26/2019 11:56 PM ? Report ID: [id number] ?? Reading Location: ??[id number] ? REPORT ELECTRONICALLY SIGNED IN OTHER VENDOR SYSTEM ?? Resulting Agency Comment P Procedure Note Vidal Cuevas MD - 02/27/2019 Patient Name: HEIDI BARKER Dr: Dimitri Mckenna MD DKrissO.B: 1940 Exam Date: 02/26/19 0000 Age: 78 Sex: Female MR#: [id number] Loc: RADIOLOGY REPORT Order #[id number] Radiology Chest 2 Views Signed EXAM DESCRIPTION: Chest 2 Views REASON FOR STUDY: cough x 3 weeks TECHNIQUE: Frontal and lateral views of the chest. COMPARISON: 02/25/2019 FINDINGS: LUNGS AND PLEURA: No focal airspace opacity, pleural effusion, orpneumothorax identified. HEART/MEDIASTINUM: Trachea midline. Cardiac silhouette normal in size. Mediastinal contours appear normal. BONES: Unremarkable. UPPER ABDOMEN: Unremarkable. IMPRESSION: No pneumonia or other acute abnormality identified. THIS IS AN ELECTRONICALLY VERIFIED FINAL REPORT 02/26/2019 11:56 PM - Electronically signed by Vidal Cuevas M.D. AR: DEVONTE Report ID: [id number] Reading Location: [place] [address] REPORT ELECTRONICALLY SIGNED IN OTHER VENDOR SYSTEM Dimitri Mckenna MD IMG XR PROCEDURES Rola l Result documented in this encounter Visit Diagnoses Not on filedocumented in this encounter Care Teams Peel Oven Tender Relationship Specialty Start Date End Date Stephen Anguiano MD [address] [place] [address] PCP - General 02/25/19 06/18/23 documented as of this encounter
--- OUTSIDE RECORDS SUMMARY | 2024-09-18 11:37 | XMS_ITS | Encounter Summary ---
Author Organization [facility] Care Team Providers Care Electroplating Worker Name Role Phone Stephen Anguiano MD Primary Care Provider [phone] Encounter Details Date Type Department Care Team (Latest Contact Info) Description 12/11/2019 Travel Social History Tobacco Use Types Packs/Day Years Used Date Smoking Tobacco: Never Smokeless Tobacco: Current Chew Comments:ocas uses chew Alcohol Use Standard Drinks/Week Comments Yes 0 (1 standard drink = 0.6 oz pur e alcohol) rarely Comments Unknown Sex and Gender Information Value Date Recorded Sex Assigned at Not on file 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 No / Unsure 12/11/2019 2:06 PM CDT documented as of this encounter Plan of Treatment Not on file documented as of this encounter Visit Diagnoses Not on filedocumented in this encounter Care Teams Electroplating Worker Relationship Specialty Start Date End Date Stephen Anguiano MD [address] [place] [address] PCP - General 02/25/19 06/18/23 documented as of this encounter
--- OUTSIDE RECORDS SUMMARY | 2024-09-18 11:37 | XMS_ITS | Encounter Summary ---
Author Organization [facility] Healthcare Address [address] [place] [address] Care Team Providers Care Lean Manufacturing Leader Name Role Phone Stephen Anguiano MD Primary Care Provider [phone] Encounter Details Date Type Department Care Team (Late st Contact Info) Description 11/15/2019 8:10 AM KNIFE SETTER ASSEMBLER Hospital Encounter [facility]IM Cas Mujica MD [address] [facility] [address] [address] Social History Tobacco Use Types Packs/Day Years Used Date Smoking Tobacco: Never Smokeless Tobacco: Current Chew Comments:ocas uses chew Alcohol Use Standard Drinks/Week Comments Yes 0 (1 standard drink = 0.6 oz pur e alcohol) rarely Comments Unknown Sex and Gender Information Value Date Recorded Sex Assigned at Not on file 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 Gender Identity Not on file Sexual Orientation Not on file documented as of this encounter Medications at Time of Discharge ADVAIR HFA 115-21 mcg/actuation inhaler 2 puffs 2 (two) times a day 0 albuterol 2.5 mg /3 mL (0.083 %) nebulizer solution Take 2.5 mg by nebulization every 6 (six) hours as needed for wheezing albuterol HFA (PROVENTIL HFA,VENTOLIN HFA,PROAIR HFA) 90 mcg/actuation inhaler Inhale 2 puffs every 6 (six) hours as needed for wheezing amLODIPine (NORVASC) 10 mg tablet Take 10 mg by mouth daily fluticasone propionate (FLONASE) 50 mcg/actuation nasal spray 0 loratadine (CLARITIN) 10 mg tablet Take 10 mg by mouth daily olopatadine (PATANOL) 0.1 % ophthalmic solutionIndications :Allergic Conjunctivitis 1 drop 2 (two) times a day traMADol (ULTRAM) 50 mg tablet 3 0 documented as of this encounter Plan of Treatment Not on file documented as of this encounter Procedures Procedure Name Priority Date/Time Associated Diagnosis Comments CARDIOPULMONARY DIAGNOSTICS REPORT 11/16/2019 12:00 AM KNIFE SETTER ASSEMBLER documented in this encounter Results * CARDIOPULMONARY DIAGNOSTICS REPORT (11/16/2019 12:00 AM KNIFE SETTER ASSEMBLER) Narrative 11/16/2019 12:00 AM KNIFE SETTER ASSEMBLER Ordered by an unspecified provider. us Historical Provider MD NURSING COMMUNICATION Fin al Result documented in this encounter Visit Diagnoses Not on filedocumented in this encounter Care Teams Lean Manufacturing Leader Relationship Specialty Start Date End Date Stephen Anguiano MD [address] [place] [address] PCP - General 02/25/19 06/18/23 documented as of this encounter
--- OUTSIDE RECORDS SUMMARY | 2024-09-18 11:37 | XMS_ITS | Encounter Summary ---
Author Organization [facility] Address [address] [place] [address] Care Team Providers Care Senior Commercial Loan Officer Name Role Phone Stephen Anguiano MD Primary Care Provider [phone] Reason for Visit * Reason Comments Follow-up * Consultation (Routine) - Closed Specialty Diagnoses / Procedures Referred By Contac t Referred To Contact Pulmonary Disease / Pulmonology Diagnoses Uncomplicated asthma, unspecified asthma severity, unspecified whether persistent Stephen Anguiano MD Phone: tel: fax: Cas [facility] [address] [facility] [address] [place] [id number] Phone: tel: fax: Referral ID Status Reason Start Date Expiration Date V isits Requested Visits Authorized [id number] Closed Specialty Services Required 10/18/2019 04/15/2020 6 6 Encounter Details Date Type Department Care Team (Late st Contact Info) Description 10/24/2019 1:00 PM HORSERAD[facility] GRINDER Office Visit [facility] Pulmonology [address] [place] [address] Cas Mujica MD [facility] [address] EM [address] [place] [id number] Chronic cough (Primary Dx); Uncomplicated asthma, unspecified asthma severity, unspecified whether persistent; Shortness of breath; Non-seasonal allergic rhinitis due to pollen; Sleep disorder; Non-smoker Social History Tobacco Use Types Packs/Day Years Used Date Smoking Tobacco: Never Smokeless Tobacco: Current Chew Comments:ocas uses chew Alcohol Use Standard Drinks/Week Comments Yes 0 (1 standard drink = 0.6 oz pur e alcohol) rarely Comments Unknown Sex and Gender Information Value Date Recorded Sex Assigned at Not on file Legal Sex Female 7:55 PM H[facility]ERAD[facility] GRINDER Gender Identity Not on file Sexual Orientation Not on file documented as of this encounter Last Filed Vital Signs Vital Sign Reading Time Taken Comments Blood Pressure 158/83 10/24/2019 2:10 PM HORSERAD[facility] GRINDER Pulse 93 10/24/2019 2:10 PM [facility] GRINDER Temperature 36.9 ??C (98.4 ??F) 10/24/2019 2:10 PM CS T Respiratory Rate 20 10/24/2019 2:10 PM [facility] GRINDER Oxygen Saturation 97% 10/24/2019 2:10 PM [facility]ORSERAD[facility] GRINDER Inhaled Oxygen Concentration - - Weight 85.9 kg (189 lb 6.4 oz) 10/24/2019 2:10 P M [facility]ORSERADISH GRINDER Height - - Body Mass Index 28.8 02/26/2019 10:53 PM CDT documented in this encounter Progress Notes * Cas Mujica MD - 10/24/2019 1:00 PM CST Subjective/Objective Patient ID: Heidi Barker is a 79 y.o. female. Chief Complaint Chief Complaint Patient presents with ??? Follow-up HPI The patient is pleasant 79-year-old female who has never smoked in the past. Patient carry the diagnosis of asthma moderate persistent. Patient has been having progressive shortness of breath with minimum activity. She has been having cough which is usually produce small amounts sputum. She does have history of intermittent wheezing and palpitation. Patient also has history of postnasal drainage. She does have history of intermittent dizziness specially in the morning. He does have history of snoring and sleep disturbances. Patient was referred to us for further evaluation and management. Upon questioning the patient, she relates to me that her cough does not have any provoking or relieving factor. There is no specific time of the day. She does have history of intermittent headache. She denies any history of hemoptysis, epistaxis, hematemesis, melena, hematochezia, diarrhea, chest pain or abdominal pain. She denies any history of urinary symptoms. She does have history of intermittent constipation. She denies any contact with sick people or exposure to TB. She lives in [place]. She lives in an older house. She does have a dog at home. He has been using Advair HFA 115/212 puffs b.i.d. for the past 3 years. She does uses nebulizer with albuterol and Atrovent on as needed basis. No Known Allergies Review of Systems Constitutional: Negative for appetite change, chills, fatigue and fever. HENT: Positive for nosebleeds. Negative for congestion, ear pain, mouth sores, tinnitus and voice change. Eyes: Negative for photophobia and pain. Respiratory: Positive for cough and shortness of breath. Negative for choking and stridor. Cardiovascular: Negative for chest pain and palpitations. Gastrointestinal: Negative for abdominal distention, abdominal pain and nausea. Endocrine: Negative for cold intolerance and polyphagia. Genitourinary: Negative for dysuria and hematuria. Musculoskeletal: Negative for gait problem and joint swelling. Skin: Negative for pallor and rash. Allergic/Immunologic: Negative for immunocompromised state. Neurological: Negative for seizures and facial asymmetry. Hematological: Negative for adenopathy. Does not bruise/bleed easily. Psychiatric/Behavioral: Negative for agitation and confusion. Vitals BP 158/83 Pulse 93 Temp 36.9 ??C (98.4 ??F) Resp 20 Wt 85.9 kg (189 lb 6.4 oz) SpO2 97% Physical Exam Constitutional: General: She is not in acute distress. Appearance: She is well-developed. She is not diaphoretic. HENT: Head: Normocephalic and atraumatic. Neck: Musculoskeletal: Normal range of motion and neck supple. Thyroid: No thyromegaly. Cardiovascular: Rate and Rhythm: Normal rate and regular rhythm. Heart sounds: No murmur. No gallop. Pulmonary: Effort: Pulmonary effort is normal. No accessory muscle usage or respiratory distress. Breath sounds: No stridor. Examination of the right-upper field reveals decreased breath sounds. Examination of the left-upper field reveals decreased breath sounds. Examination of the right-lower field reveals rales. Examination of the left-lower field reveals rales. Decreased breath sounds and rales present. Chest: Chest wall: No mass, deformity or tenderness. Breasts: Right: No mass. Left: No mass. Abdominal: General: Bowel sounds are normal. There is no distension. Palpations: Abdomen is soft. Tenderness: There is no tenderness. Musculoskeletal: Normal range of motion. General: No tenderness or deformity. Lymphadenopathy: Cervical: No cervical adenopathy. Skin: General: Skin is warm and dry. Capillary Refill: Capillary refill takes less than 2 seconds. Findings: No erythema or rash. Neurological: Mental Status: She is alert and oriented to person, place, and time. Cranial Nerves: No cranial nerve deficit. Coordination: Coordination normal. Psychiatric: Behavior: Behavior normal. Diagnoses and all orders for this visit: Chronic cough (Primary) Uncomplicated asthma, unspecified asthma severity, unspecified whether persistent - Ambulatory referral to Pulmonology Shortness of breath Non-seasonal allergic rhinitis due to pollen Sleep disorder Non-smoker Results: Lab Results Component Value Date WBC 8.2 02/26/2019 HGB 13.0 02/26/2019 HCT 38.2 02/26/2019 MCV 90.3 02/26/2019 LABPLAT 281 02/26/2019 Plan: Patient will return back in 6 weeks for re-evaluation. Patient will continue using Advair HFA 115/21 2puffs b.i.d. on a regular basis. She will continue using albuterol and Atrovent via nebulizer on as needed basis. She is also using Flonase on a regular basis. I'll check PFTs, 6 minutes walk test,ESR, ABGs, CBC and IgE on the patient. I'll check overnight pulse oximeter study on the patient. Patient is up-to-date with the flu vaccine., please see further details for assessment and plan in HPI ERADISH GRINDER documented in this encounter Plan of Treatment Scheduled Orders Name Type Priority Associated Diagnoses Orde r Schedule CBC with auto differential Lab Routine Uncomplicated asthma, unspecified asthma severity, unspecified whether persistent Chronic cough Expected: 10/24/2019, Expires: 10/24/2020 IgE Lab Routine Uncomplicated asthma, unspecified asthma severity, unspecified whether persistent Chronic cough Expected: 10/24/2019, Expires: 10/24/2020 Erythrocyte sedimentation rate Lab Routine Uncomplicated asthma, unspecified asthma severity, unspecified whether persistent Chronic cough Expected: 10/24/2019, Expires: 10/24/2020 documented as of this encounter Procedures Procedure Name Priority Date/Time Associated Diagnosis Comments BLOOD GAS, ARTERIAL Routine 11/15/2019 8 :23 AM [facility]ER Uncomplicated asthma, unspecified asthma severity, unspecified whether persistent Chronic cough documented in this encounter Results * (ABNORMAL) Blood gas, arterial (11/15/2019 8:23 AM HORSERADISH GRINDER) Specimen Type Arterial Blood [facility] Puncture Site [facility] Patient Temperature 37.0 C [facility] pH 7.50(H) 7.35 - 7.45 [facility] pCO2 39 32 - 48 mmHg [facility] pO2 79(L) 80 - 110 mmHg [facility] HCO3 30.4(H) 22.0 - 26.0 mmol/L [facility] Total CO2 31.6(H) 20.0 - 30.0 mmol/L [facility] Base Excess 6.7(H) -2.0 - 2.0 mmol/L [facility] Hb (BLOOD GAS) 13.4 12.1 - 15.1 g/dL [facility] O2 Saturation 95.7(H) 90.0 - 95.0 % [facility] ABG Carboxyhemoglobin 1.7 <3.0 % [facility] ABG Methemoglobin 1.0 <2.0 % [facility] ABG O2 Content 18.1 17.6 - 24.3 mg/dL [facility] A-a O2 Difference 22.0(H) <=10.0 [facility] a/A Ratio 0.8 >=0.8 [facility] FiO2 21.0 % [facility] Blood specimen (specimen) 11/15/2019 8:23 AM [facility]ER 11/15/2019 8:24 AM [facility] GRINDER Narrative Resulting Agency Comment CLI Cas Mujica MD LAB BLOOD ORDERABLES Final Result [facility] [phone] documented in this encounter Visit Diagnoses Diagnosis Chronic cough- Primary Cough Uncomplicated asthma, unspecified asthma severity, unspecified whether persistent Shortness of breath Non-seasonal allergic rhinitis due to pollen Sleep disorder Unspecified sleep disturbance Non-smoker documented in this encounter Historical Medications * This list may reflect changes made after this encounter. olopatadine (PATANOL) 0.1 % ophthalmic solutionIndications :Allergic Conjunctivitis 1 drop 2 (two) times a day albuterol HFA (PROVENTIL HFA,VENTOLIN HFA,PROAIR HFA) 90 mcg/actuation inhaler Inhale 2 puffs every 6 (six) hours as needed for wheezing loratadine (CLARITIN) 10 mg tablet Take 10 mg by mouth daily albuterol 2.5 mg /3 mL (0.083 %) nebulizer solution Take 2.5 mg by nebulization every 6 (six) hours as needed for wheezing amLODIPine (NORVASC) 10 mg tablet Take 10 mg by mouth daily traMADol (ULTRAM) 50 mg tablet 3 0 fluticasone propionate (FLONASE) 50 mcg/actuation nasal spray 0 ADVAIR HFA 115-21 mcg/actuation inhaler 2 puffs 2 (two) times a day 0 added in this encounter Orders Outpatient Referral Count Last Ordered Date Fir st Ordered Date AMB REFERRAL TO PULMONOLOGY 1 10/24/2019 documented in this encounter Care Teams Senior Commercial Loan Officer Relationship Specialty Start Date End Date Stephen Anguiano MD [address] [place] [address] PCP - General 02/25/19 06/18/23 documented as of this encounter
--- OUTSIDE RECORDS SUMMARY | 2024-09-18 11:37 | XMS_ITS | Encounter Summary ---
Author Organization [facility] Healthcare Address [address] [place] [address] Care Team Providers Care Chief Juvenile Probation Officer Name Role Phone Stephen Anguiano MD Primary Care Provider [phone] Encounter Details Date Type Department Care Team (Late st Contact Info) Description 02/25/2019 11:12 PM CDT - 02/26/2019 2:10 AM CDT Hospital Encounter [facility] Emergency Department [address] [place] [address] Micheal Walters II, MD [address] [place] [address] [phone] Unknown, Notinfile Discharge Disposition: Discharge to home or self care Social History Tobacco Use Types Packs/Day Years Used Date Smoking Tobacco: Never Assessed Comments Unknown Sex and Gender Information Value Date Recorded Sex Assigned at Not on file Legal Sex Female 7:55 PM 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 CLERK Gender Identity Not on file Sexual Orientation Not on file documented as of this encounter Last Filed Vital Signs Vital Sign Reading Time Taken Comments Blood Pressure 161/82 02/25/2019 11:13 PM CDT Pulse 105 02/25/2019 11:13 PM CDT Temperature 37.1 ??C (98.7 ??F) 02/25/2019 11:13 PM C DT Respiratory Rate - - Oxygen Saturation 95% 02/25/2019 11:13 PM CDT Inhaled Oxygen Concentration - - Weight 88.1 kg (194 lb 3.6 oz) 02/25/2019 11:13 PM CDT Height 172.7 cm (5' 8 ) 02/25/2019 11:13 PM CDT Body Mass Index 29.53 02/25/2019 11:13 PM CDT documented in this encounter Discharge Disposition Disposition Code Departure Means Destination Discharge to home or self care documented in this encounter Plan of Treatment Not on file documented as of this encounter Procedures Procedure Name Priority Date/Time Associated Diagnosis Comments BLOOD GAS WITH LACTATE Routine 9 1:35 AM CDT BLOOD CULTURE Routine 02/26/2019 12:27 AM CDT ECG 12-LEAD 02/26/2019 12:13 AM CDT BLOOD CULTURE Routine 02/26/2019 12:03 AM CDT PROCALCITONIN Routine 02/25/2019 11:54 PM CDT CBC WITH AUTO DIFFERENTIAL Routine 02/25/2019 11:54 PM CDT TROPONIN I Routine 02/25/2019 11:54 PM CDT COMPREHENSIVE METABOLIC PANEL Routine 02/25/2019 11:54 PM CDT XR CHEST PA LATERAL 2 VIEWS 02/25/2019 12:00 AM CDT documented in this encounter Results * (ABNORMAL) Blood gas with lactate (02/26/2019 1:35 AM CDT) Specimen Type Arterial [facility] Puncture Site RR [facility] Patient Temperature 37.0 C [facility] pH 7.494(H) 7.350 - 7.450 [facility] pCO2 34.7 32.0 - 48.0 mmHg [facility] pO2 64.4(L) 80.0 - 110.0 mmHg [facility] HCO3 26.5(H) 22.0 - 26.0 mmol/L [facility] Total CO2 27.5 20.0 - 30.0 mmol/L [facility] Base Excess 3.7(H) -2.0 - 2.0 mmol/L [facility] Hb (BLOOD GAS) 13.1 12.1 - 15.1 g/dL [facility] O2 Saturation 90.4 90.0 - 95.0 % [facility] ABG Carboxyhemoglobin 1.2 <3.0 % [facility] ABG Methemoglobin 0.5 <2.0 % [facility] ABG O2 Content 16.6(L) 17.6 - 24.3 Vol % [facility] Lactate 0.9 0.5 - 2.0 mmol/L [facility] A-a O2 Difference 41.9(H) <=10.0 [facility] a/A Ratio 0.6(L) >=0.8 [facility] FiO2 21.0 % [facility] BG Specimen Comment ED3 [facility] Zigzag Appliquer ID JAF [facility] 02/26/2019 1:35 AM CDT 02/26/2019 1:38 AM CDT Narrative [facility] - 02/26/2019 1:40 AM CDT Conditions Room Air Source Arterial Resulting Agency Comment ER us Micheal Walters II, MD LAB BLOOD ORDERABLES Rola l Result [facility] [address] [place] [address] * Blood culture Blood (02/26/2019 12:27 AM CDT) CULTURE BLOOD ADULT (SET OF 2) NO GROWTH DAY 5 [facility] Blood 02/26/2019 12:2 7 AM CDT 02/26/2019 12:47 AM CDT us Micheal Walters II, MD LAB MICROBIOLOGY - GENERA L ORDERABLES Final Result [facility] [address] [phone] * ECG 12 lead (02/26/2019 12:13 AM CDT) Ventricular Rate EKG/Min 95 BPM [facility] Atrial Rate 95 BPM [facility] AK-Interval (MSEC) 176 ms [facility] QRS-Interval (MSEC) 90 ms [facility] QT-Interval (MSEC) 388 ms [facility] QTc 487 ms [facility] P [place] 26 degrees [facility] R [place] 55 degrees [facility] T [place] 64 degrees [facility] Diagnosis Normal sinus rhythm Normal ECG No previous ECGs available [facility] 02/26/2019 12:1 3 AM CDT 02/26/2019 12:24 PM CDT Narrative Resulting Agency Comment BARBARA us Micheal Walters II, MD ECG ORDERABLES Final Res ult Performing Organization Address [facility]/ZIP Co de Phone Number [facility] * Blood culture Blood (02/26/2019 12:03 AM CDT) CULTURE BLOOD ADULT (SET OF 2) CRITICAL VALUE:GRAM POSITIVE COCCI CALLED and REPEATED. at:1706 02/26/19 by:Nathan Christensen to:TREVIN [id number] ??CRITICAL VALUE:GRAM POSITIVE COCCI RESEMBLING STREPTOCOCCUS/ENT EROCOCCUS CALLED and REPEATED. at:1958 02/26/19 by:Emily Laura to:ANA [id number] RN @ SMR+ REFLEX @ SMR+ REFLEX @ SMR+ REFLEX @ SMR+ REFLEX REPORT: RECOVERED ON @ ORG IN BTA ?? CONTAM? @ ORG IN BTA ?? CONTAM? [facility] Organism STREPTOCOCCUS VIRIDANS [facility] CULTURE BLOOD ADULT (SET OF 2) REPORT ON DAY: ON DAY DRAWN. REPORT BCCON LINE 1 SUSPECTED CONTAMINANT. ??NO SUSCEPTIBILITY TESTING PER REPORT BCCON LINE 2 INFECTION CONTROL COMMITTEE. SMEAR REPORT RECOVERED FROM CULTURE. [facility] Blood 02/26/2019 12:0 3 AM CDT 02/26/2019 12:47 AM CDT us Micheal Walters II, MD LAB MICROBIOLOGY - GENERA L ORDERABLES Final Result Performing Organization Address City/[facility]/ZIP Co de Phone Number [facility] [address] [place] [address], [facility] [phone] * Procalcitonin (02/25/2019 11:54 PM CDT) Pathologist [facility] Procalcitonin 0.05 0.0 - 0.24 ng/mL [facility] Comment: Guidelines for use with Community Acquired Pneumonia(CAP)- ONLY: ?? <0.1 ng/mL: Use of antibiotics is STRONGLY discouraged ?? 0.1-0.24 ng/mL: Use of antibiotics is discouraged ?? 0.25-0.5 ng/mL: Use of antibiotics is encouraged ?? >0.5 ng/mL: Use of antibiotics is STRONGLY encouraged ?? Recommend repeating every 2-3 days if initial PCT >0.24 02/25/2019 11:5 4 PM CDT 02/26/2019 12:04 AM CDT Narrative Resulting Agency Comment ER Micheal Walters II, MD LAB BLOOD ORDERABLES Rola l Result [facility] [address] [place] [address], [facility] [phone] * (ABNORMAL) Comprehensive metabolic panel (02/25/2019 11:54 PM CDT) [facility] Sodium 141 135 - 145 mmol/L [facility] Potassium 2.9(L) 3.3 - 5.1 mmol/L [facility] Chloride 101 96 - 108 mmol/L [facility] Carbon Dioxide 26 22 - 32 mmol/L [facility] Anion Gap 14 7 - 16 [facility] Glucose 112(H) 70 - 100 mg/dL [facility] BUN 6(L) 8 - 25 mg/dL [facility] Creatinine 0.7 0.5 - 1.1 mg/dL [facility] Comment: NOTE: Estimated GFR (Cockroft-Gault) will NOT be calculated unless patient Height and Weight were entered. Also, Kidney Disease Stage (GFR) and Estimated GFR (Cockroft-Gault) will NOT be calculated if Creatinine result is <0.2. Kidney Disease Stage >90 mL/MIN [facility] Comment: NOTE; ??The GFR is an [...] failure or on dialysis Est GFR (Cockcroft-G) 74 ml/MIN [facility] Comment: Estimated GFR(Cockroft-Gault)is used to calculate patient medication dosage Calcium 9.7 8.6 - 10.3 mg/dL [facility] Total Protein 6.9 6.4 - 8.3 g/dL [facility] Albumin 3.9 3.5 - 5.0 g/dL [facility] Globulin 3.0 2.3 - 3.5 gm/dL [facility] Albumin/Globulin Ratio 1.3 1.1 - 1.8 [facility] Total Bilirubin 0.4 0.0 - 1.2 mg/dL [facility] AST 59(H) 0 - 32 U/L [facility] ALT 37(H) 0 - 33 U/L [facility] Alkaline Phosphatase 82 35 - 104 U/L [facility] 02/25/2019 11:5 4 PM CDT 02/26/2019 12:04 AM CDT Narrative Resulting Agency Comment ER Micheal Walters II, MD LAB BLOOD ORDERABLES Edit ed Result - Final Performing Organization Address [facility] Co de Phone Number [address] [phone] * Troponin I (02/25/2019 11:54 PM CDT) Pathologist [facility] Troponin I <0.300 0.000 - 0.300 ng/mL [facility] Comment: Reference using BIANKA Chemiluminescence ? Negative: Repeat in 4-6 hours as indicated. 02/25/2019 11:5 4 PM CDT 02/26/2019 12:04 AM CDT Narrative Resulting Agency Comment ER Micheal Walters II, MD LAB BLOOD ORDERABLES Rola l Result Performing Organization Address [facility] de Phone Number [address] [phone] * CBC with auto differential (02/25/2019 11:54 PM CDT) [facility] WBC 5.1 3.8 - 9.9 X10 3/ul [facility] RBC 4.50 3.90 - 5.20 x10 6/ul [facility] Hemoglobin 13.8 11.9 - 15.5 g/dL [facility] Hct 41.1 35.6 - 45.5 % [facility] MCV 91.3 81.3 - 96.4 fl [facility] MCH 30.7 27.1 - 33.3 pg [facility] MCHC 33.6 32.3 - 35.7 g/dl [facility] RDW 14.2 11.1 - 14.9 % [facility] Plt Count 266 150 - 400 x10 3/ul [facility] MPV 10.7 9.1 - 12.3 fl [facility] Neut % 52.4 % [facility] E AST [facility] Immature Gran % 0.2 % [facility] Lymph % 33.9 % [facility] E [employer] - Dajie Rowan % 8.4 % [facility] E AST - Dajie Eos % 3.9 % [facility] E [facility] AUTO BASO % 1.2 % [facility] NEUTROPHIL ABS # 2.7 1.7 - 6.5 x10 3/ul [facility] Immature Gran # 0.0 0.0 - 0.1 x10 3/ul [facility] Absolute Lymphs (auto) 1.7 0.8 - 3.3 x10 3/ul [facility] Absolute Monos (auto) 0.4 0.2 - 0.8 x10 3/ul [facility] Absolute Eos (auto) 0.2 0.0 - 0.5 x10 3/ul [facility] BASOPHIL ABS # 0.1 0.0 - 0.1 x10 3/ul [facility] Nucleat RBC Rel Count 0.0 #/100WBC [facility] NRBC abs 0.00 0.00 - 0.01 x10 3/ul [facility] Absolute Neutrophils 2,700 200 - 8,000 /ul [facility] 02/25/2019 11:5 4 PM CDT 02/26/2019 12:04 AM CDT Narrative Resulting Agency Comment ER Micheal Walters II, MD LAB BLOOD ORDERABLES Rola l Result Performing Organization Address [facility]/State/[facility] Co de Phone Number [facility] [address] [phone] * XR Chest Pa Lateral 2 Views (02/25/2019 12:00 AM CDT) Anatomical Region Laterality Modality Body, Chest N/A Radiographic Rachel ging 02/25/2019 11:4 7 PM CDT Narrative 02/25/2019 11:49 PM CDT Patient Name: HEIDI BARKER ?Ordering Dr: Micheal Walters MD ?? D.O.B: 1940 ? Exam Date: 02/25/19 ?? 0000 ?? Age: 78 ?Sex: Female ? MR#: [id number] ?? Loc: ? RADIOLOGY REPORT ?? Order #[id number] ?? Radiology ? Chest 2 Views ? Signed ? EXAM DESCRIPTION: ??Chest 2 Views ? REASON FOR STUDY: ??cough x 2 weeks ? TECHNIQUE: ?? Frontal and lateral views of the chest. ? COMPARISON: ??None ? FINDINGS: ? LUNGS AND PLEURA: No focal airspace opacity, pleural effusion, or pneumothorax ?? identified. ? HEART/MEDIASTINUM: Trachea midline. Cardiac silhouette normal in size. ?? Mediastinal contours appear normal. ? BONES: Unremarkable. ? UPPER ABDOMEN: Unremarkable. ? IMPRESSION: ??No pneumonia or other acute abnormality identified. ? THIS IS AN ELECTRONICALLY VERIFIED FINAL REPORT ?? 02/25/2019 11:49 PM - Electronically signed by Vidal Cuevas M.D. ?? Vidal Cuevas M.D. ? AR: AR ?? D: ??02/25/2019 11:49 PM ?? T: ??02/25/2019 11:49 PM ? Report ID: [id number] ?? Reading Location: ??[id number] ? REPORT ELECTRONICALLY SIGNED IN OTHER VENDOR SYSTEM ?? Resulting Agency Comment P Procedure Note Vidal Cuevas MD - 02/25/2019 Patient Name: HEIDI BARKER Dr: Micheal Walters MD DKrissOKrissB: 1940 Exam Date: 02/25/19 0000 Age: 78 Sex: Female MR#: [id number] Loc: RADIOLOGY REPORT Order #[id number] Radiology Chest 2 Views Signed EXAM DESCRIPTION: Chest 2 Views REASON FOR STUDY: cough x 2 weeks TECHNIQUE: Frontal and lateral views of the chest. COMPARISON: None FINDINGS: LUNGS AND PLEURA: No focal airspace opacity, pleural effusion, orpneumothorax identified. HEART/MEDIASTINUM: Trachea midline. Cardiac silhouette normal in size. Mediastinal contours appear normal. BONES: Unremarkable. UPPER ABDOMEN: Unremarkable. IMPRESSION: No pneumonia or other acute abnormality identified. THIS IS AN ELECTRONICALLY VERIFIED FINAL REPORT 02/25/2019 11:49 PM - Electronically signed by Vidal Cuevas M.D. AR: DEVONTE Report ID: [id number] Reading Location: [place] [address] REPORT ELECTRONICALLY SIGNED IN OTHER VENDOR SYSTEM Micheal Walters II, MD IMG XR PROCEDURES Final R esult documented in this encounter Visit Diagnoses Not on filedocumented in this encounter Care Teams Chief Juvenile Probation Officer Relationship Specialty Start Date End Date Stephen Anguiano MD [address] [place] [address] PCP - General 02/25/19 06/18/23 documented as of this encounter
--- OUTSIDE RECORDS SUMMARY | 2024-09-18 11:37 | XMS_ITS | Encounter Summary ---
Author Organization [facility] Facility Care Team Providers Care Gluer Machine Operator Name Role Phone Stephen Anguiano MD Primary Care Provider Encounter Details Date Type Department Care Team (Latest Contact Info) Description 10/24/2019 Travel Social History Tobacco Use Types Packs/Day Years Used Date Smoking Tobacco: Never Smokeless Tobacco: Current Chew Comments:ocas uses chew Alcohol Use Standard Drinks/Week Comments Yes 0 (1 standard drink = 0.6 oz pur e alcohol) rarely Comments Unknown Sex and Gender Information Value Date Recorded Sex Assigned at Not on file 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
--- OUTSIDE RECORDS SUMMARY | 2024-09-18 11:37 | XMS_ITS | Encounter Summary ---
Author Organization [facility] Healthcare Address [address] [place] [address] Care Team Providers Care Mine Supervisor Name Role Phone Stephen Anguiano MD Primary Care Provider [phone] Encounter Details Date Type Department Care Team (Late st Contact Info) Description 11/04/2019 8:58 PM DIESEL BUS MECHANIC - 11/08/2019 1:03 PM DIESEL BUS MECHANIC Hospital Encounter MHE ADMIT Unknown, Laura Morales MD [address] [address] Andi Perez MD [address] [place] [id number] Discharge Disposition: Discharge to home or self [...] on file Legal Sex Female 7:55 PM DIESEL BUS MECHANIC Gender Identity Not on file Sexual Orientation Not on file documented as of this encounter Last Filed Vital Signs Vital Sign Reading Time Taken Comments Blood Pressure 133/73 11/05/2019 2:00 AM DIESEL BUS MECHANIC Pulse 79 11/05/2019 2:00 AM DIESEL BUS MECHANIC Temperature 36.7 ??C (98 ??F) 11/05/2019 2:00 AM DIESEL BUS MECHANIC Respiratory Rate - - Oxygen Saturation 94% 11/05/2019 2:00 AM DIESEL BUS MECHANIC Inhaled Oxygen Concentration - - Weight 87.9 kg (193 lb 12.6 oz) 11/05/2019 2:00 AM DIESEL BUS MECHANIC Height 172.7 cm (5' 8 ) 11/05/2019 2:00 AM DIESEL BUS MECHANIC Body Mass Index 29.47 11/05/2019 2:00 AM DIESEL BUS MECHANIC documented in this encounter Medications at Time [...] 3 0 documented as of this encounter Discharge Disposition Disposition Code Departure Means Destination Discharge to home or self care documented in this encounter Plan of Treatment Not on file documented as of this encounter Procedures Procedure Name Priority Date/Time Associated Diagnosis Comments CBC WITH AUTO DIFFERENTIAL Routine 11/08/2019 5:13 AM DIESEL BUS MECHANIC BASIC METABOLIC PANEL Routine 11/08/2019 5:12 AM DIESEL BUS MECHANIC CBC WITH AUTO DIFFERENTIAL Routine 11/07/2019 5:28 AM DIESEL BUS MECHANIC BASIC METABOLIC PANEL Routine 11/07/2019 5:28 AM DIESEL BUS MECHANIC TRANSTHORACIC ECHO (TTE) COMPLETE W DOPPLER/CF 11/06/2019 3:43 PM DIESEL BUS MECHANIC CBC WITH AUTO DIFFERENTIAL Routine 11/06/2019 8:17 AM DIESEL BUS MECHANIC BASIC METABOLIC PANEL Routine 11/06/2019 8:17 AM DIESEL BUS MECHANIC CARDIOLOGY REPORT 11/06/2019 12: 00 AM DIESEL BUS MECHANIC CARDIOLOGY REPORT 11/06/2019 12: 00 AM DIESEL BUS MECHANIC ECG 12-LEAD 11/05/2019 8:39 AM DIESEL BUS MECHANIC LACTATE Routine 11/05/2019 7:10 AM DIESEL BUS MECHANIC CBC WITH AUTO DIFFERENTIAL Routine 11/05/2019 7:10 AM DIESEL BUS MECHANIC PHOSPHORUS Routine 11/05/2019 7:10 AM DIESEL BUS MECHANIC HEMOGLOBIN A1C Routine 11/05/2019 7:10 AM DIESEL BUS MECHANIC COMPREHENSIVE METABOLIC PANEL Routine 11/05/2019 7:10 AM DIESEL BUS MECHANIC CTA CHEST W IV CONTRAST - PE 11/05/2019 12:00 AM DIESEL BUS MECHANIC LACTATE Routine 11/04/2019 11:21 PM DIESEL BUS MECHANIC ECG 12-LEAD 11/04/2019 8:56 PM DIESEL BUS MECHANIC BLOOD GAS WITH LACTATE Routine 0 8:48 PM DIESEL BUS MECHANIC INFLUENZA A/B PCR Routine 11/04/2019 7:4 5 PM DIESEL BUS MECHANIC XR CHEST PA LATERAL 2 VIEWS 11/04/2019 7:15 PM DIESEL BUS MECHANIC SEPSIS LACTATE Routine 11/04/2019 7:10 PM DIESEL BUS MECHANIC PROCALCITONIN Routine 11/04/2019 7:10 PM DIESEL BUS MECHANIC CBC WITH AUTO DIFFERENTIAL Routine 11/04/2019 7:10 PM DIESEL BUS MECHANIC MAGNESIUM Routine 11/04/2019 7:10 PM DIESEL BUS MECHANIC COMPREHENSIVE METABOLIC PANEL Routine 11/04/2019 7:10 PM DIESEL BUS MECHANIC documented in this encounter Results * CBC with auto differential (11/08/2019 5:13 AM DIESEL BUS MECHANIC) WBC 7.0 3.8 - 9.9 X10 3/ul [facility] RBC 4.47 3.90 - 5.20 x10 6/ul [facility] Hemoglobin 13.7 11.9 - 15.5 g/dL [facility] Hct 40.8 35.6 - 45.5 % [facility] MCV 91.3 81.3 - 96.4 fl [facility] MCH 30.6 27.1 - 33.3 pg [facility] MCHC 33.6 32.3 - 35.7 g/dl [facility] RDW 13.8 11.1 - 14.9 % [facility] Plt Count 289 150 - 400 x10 3/ul [facility] MPV 11.1 9.1 - 12.3 fl [facility] Neut % 71.1 % [facility] Immature Gran % 0.7 % [facility] Lymph % 19.7 % [facility] Laurel % 5.7 % [facility] Eos % 2.7 % [facility] AUTO BASO % 0.1 % [facility] NEUTROPHIL ABS # 5.0 1.7 - 6.5 x10 3/ul [facility] Immature Gran # 0.1 0.0 - 0.1 x10 3/ul [facility] Absolute Lymphs (auto) 1.4 0.8 - 3.3 x10 3/ul [facility] Absolute Monos (auto) 0.4 0.2 - 0.8 x10 3/ul [facility] Absolute Eos (auto) 0.2 0.0 - 0.5 x10 3/ul [facility] BASOPHIL ABS # 0.0 0.0 - 0.1 x10 3/ul [facility] Nucleat RBC Rel Count 0.0 #/100WBC [facility] NRBC abs 0.00 0.00 - 0.01 x10 3/ul [facility] Absolute Neutrophils 5,000 200 - 8,000 /ul [facility] 11/08/2019 5:13 AM DIESEL BUS MECHANIC 11/08/2019 5:39 AM DIESEL BUS MECHANIC Narrative Resulting Agency Comment IN us Reymundo Mccall MD LAB BLOOD ORDERABLES Final Res ult [facility] [address] [phone] * (ABNORMAL) Basic metabolic panel (11/08/2019 5:12 AM DIESEL BUS MECHANIC) Sodium 140 135 - 145 mmol/L [facility] Potassium 3.8 3.3 - 5.1 mmol/L [facility] Chloride 100 96 - 108 mmol/L [facility] Carbon Dioxide 27 22 - 32 mmol/L [facility] Anion Gap 13 7 - 16 [facility] Glucose 135(H) 70 - 100 mg/dL [facility] BUN 17 8 - 25 mg/dL [facility] Creatinine 0.8 0.5 - 1.1 mg/dL [facility] Comment: NOTE: Estimated GFR (Cockroft-Gault) will NOT be calculated unless patient Height and Weight were entered. Also, Kidney Disease Stage (GFR) and Estimated GFR (Cockroft-Gault) will NOT be calculated if Creatinine result is <0.2. Kidney Disease Stage 89 mL/MIN [facility] Comment: NOTE; ??The GFR is [...] failure or on dialysis Est GFR (Cockcroft-G) 64 ml/MIN [facility] Comment: Estimated GFR(Cockroft-Gault)is used to calculate patient medication dosage Calcium 9.5 8.6 - 10.3 mg/dL [facility] 11/08/2019 5:12 AM DIESEL BUS MECHANIC 11/08/2019 5:39 AM DIESEL BUS MECHANIC Narrative Resulting Agency Comment IN us Reymundo Mccall MD LAB BLOOD ORDERABLES Final Res ult [facility] [address] [phone] * (ABNORMAL) Basic metabolic panel (11/07/2019 5:28 AM DIESEL BUS MECHANIC) Sodium 138 135 - 145 mmol/L [facility] Potassium 3.8 3.3 - 5.1 mmol/L [facility] Chloride 98 96 - 108 mmol/L [facility] Carbon Dioxide 27 22 - 32 mmol/L [facility] Anion Gap 13 7 - 16 [facility] Glucose 135(H) 70 - 100 mg/dL [facility] BUN 18 8 - 25 mg/dL [facility] Creatinine 0.8 0.5 - 1.1 mg/dL [facility] Comment: NOTE: Estimated GFR (Cockroft-Gault) will NOT be calculated unless patient Height and Weight were entered. Also, Kidney Disease Stage (GFR) and Estimated GFR (Cockroft-Gault) will NOT be calculated if Creatinine result is <0.2. Kidney Disease Stage 89 mL/MIN [facility] Comment: NOTE; ??The GFR is [...] failure or on dialysis Est GFR (Cockcroft-G) 64 ml/MIN [facility] Comment: Estimated GFR(Cockroft-Gault)is used to calculate patient medication dosage Calcium 9.4 8.6 - 10.3 mg/dL [facility] 11/07/2019 5:28 AM DIESEL BUS MECHANIC 11/07/2019 5:58 AM DIESEL BUS MECHANIC Narrative Resulting Agency Comment IN Vicki Truong MD LAB BLOOD ORDERABLES Final Result Performing Organization Address City/State/[facility] Co de Phone Number [facility] [address] [phone] * (ABNORMAL) CBC with auto differential (11/07/2019 5:28 AM DIESEL BUS MECHANIC) WBC 9.1 3.8 - 9.9 X10 3/ul [facility] RBC 4.55 3.90 - 5.20 x10 6/ul [facility] Hemoglobin 14.0 11.9 - 15.5 g/dL [facility] Hct 41.9 35.6 - 45.5 % [facility] MCV 92.1 81.3 - 96.4 fl [facility] MCH 30.8 27.1 - 33.3 pg [facility] MCHC 33.4 32.3 - 35.7 g/dl [facility] RDW 14.0 11.1 - 14.9 % [facility] Plt Count 276 150 - 400 x10 3/ul [facility] MPV 11.1 9.1 - 12.3 fl [facility] Neut % 84.5 % [facility] Immature Gran % 0.7 % [facility] Lymph % 10.0 % [facility] Laurel % 4.7 % [facility] Eos % 0.0 % [facility] AUTO BASO % 0.1 % [facility] NEUTROPHIL ABS # 7.7(H) 1.7 - 6.5 x10 3/ul [facility] Immature Gran # 0.1 0.0 - 0.1 x10 3/ul [facility] Absolute Lymphs (auto) 0.9 0.8 - 3.3 x10 3/ul [facility] Absolute Monos (auto) 0.4 0.2 - 0.8 x10 3/ul [facility] Absolute Eos (auto) 0.0 0.0 - 0.5 x10 3/ul [facility] BASOPHIL ABS # 0.0 0.0 - 0.1 x10 3/ul [facility] Nucleat RBC Rel Count 0.0 #/100WBC [facility] NRBC abs 0.00 0.00 - 0.01 x10 3/ul [facility] Absolute Neutrophils 7,700 200 - 8,000 /ul [facility] 11/07/2019 5:28 AM D[employer]EL BUS MECHANIC 11/07/2019 6:00 AM DIESEL BUS MECHANIC Narrative Resulting Agency Comment IN us Vicki Truong MD LAB BLOOD ORDERABLES Final Result [facility] [address] [place] [address], [facility] [phone] * Transthoracic Echo Complete W Doppler/CF (11/06/2019 3:43 PM DIESEL BUS MECHANIC) Anatomical Region Laterality Modality Ultrasound 11/06/2019 3:43 PM DIESEL BUS MECHANIC Narrative 11/06/2019 5:27 PM DIESEL BUS MECHANIC ? Adult Echocardiogram + ----- ---------+ :Name: HEIDI BARKER ?Study Date: 11/06/2019 ?Status: IN;MAINMHE ? : : ?Patient Location: Y.5MS^ME512^01Height: 68 in ?: : ?Weight: 194 lb ?BP: 144/79 mmHg: :: 1940 ? Gender: Female ?BSA: 2.0 m2 ?: :Reason For Study: new murmur ? : :Ordering Physician: ?: :Volkeryasir, Andi ? : : ? : :Performed By: Yin ? : :Fehrmann, RCS, RDMS ?: + ----- ---------+ Procedure A two-dimensional transthoracic echocardiogram with color flow and Doppler was performed. Left Ventricle The left ventricle is grossly normal size. There is normal left ventricular wall thickness. The left ventricular ejection fraction is normal. Ejection Fraction = 60-65%. Technically inadequate to evaluate wall motion abnormalities. Right Ventricle The right ventricle is grossly normal size. The right ventricular systolic function is normal. Atria The left atrium is mildly dilated. Right atrial size is normal. Mitral Valve There is moderate mitral annular calcification. Tricuspid Valve The tricuspid valve is not well visualized, but is grossly normal. There is trace to mild tricuspid regurgitation. Aortic Valve The aortic valve is not well visualized. Aortic valve velocity is 235 cm/s. Aortic valve peak gradient is 22 mm/Hg. Mild to moderate aortic regurgitation. Great Vessels The aortic root is not well visualized. IVC appears normal in size. Pericardium There is no pericardial effusion. Diastology Grade I diastolic dysfunction, (abnormal relaxation pattern). E/E prime ratio is 8 -15 which is in the indeterminate zone. Interpretation Summary Aortic valve velocity is 235 cm/s. Aortic valve peak gradient is 22 mm/Hg. Mild to moderate aortic regurgitation. The left ventricular ejection fraction is normal. Ejection Fraction = 60-65%. Grade I diastolic dysfunction, (abnormal relaxation pattern). + + :Measurements with Normals ?: :IVSd: ?(0.6-1.2 ?? LVIDd: ?(3.5-5.7 ?? Ao root diam: ?(2.0-3.7 ?? : :0.77 cm ?cm) ?4.3 cm ?cm) ?3.2 cm ? cm) ?: :LVPWd: ? (0.6-1.1 ?? LVIDs: ?(3.1-4.6 ?? LA dimension: ?(1.9-4.0 ?? : :0.77 cm ?cm) ?2.1 cm ?cm) ?3.6 cm ? cm) ?: + + MMode/2D Measurements & Calculations IVSs: 0.77 cm ?LVPWs: 0.77 cm ? FS: 49.5 % ? % IVS thick: 0.00 % ?EDV([facility]): 81.3 ml ?ESV([facility]): 15.3 ml ? LVOT diam: 1.7 cm Ao root area: 8.0 cm2 ? LVOT area: 2.3 cm2 Doppler Measurements & Calculations MV E max yoni: ? MV V2 max: ?MV P1/2t max yoni: ? Ao V2 max: 115.0 cm/sec ?167.0 cm/sec ?143.0 cm/sec ?235.0 cm/sec MV A max yoni: ? MV max PG: ?MV P1/2t: 79.9 msec ?? Ao max P.0 cm/sec ?11.2 mmHg ? MVA(P1/2t): 2.8 cm2 ?? 22.1 mmHg MV E/A: 0.64 ?MV V2 mean: ? MV dec slope: ? Ao V2 mean: ?87.0 cm/sec ? 153.0 cm/sec ?MV mean PG: ? 524.0 cm/sec2 ? Ao mean PG: ?4.0 mmHg ?MV dec time: 0.45 sec 11.0 mmHg ?MV V2 VTI: ?Ao V2 VTI: 46.8 cm ?39.1 cm ? RUPAL(V,D): 1.5 cm2 ? AI max yoni: ? LV V1 max PG: ? PA V2 max: ?RV V1 max: 406.0 cm/sec ?9.5 mmHg ?101.0 cm/sec ?89.5 cm/sec AI max P.9 mmHgLV V1 max: ?PA max P.1 mmHg AI dec slope: ? 154.0 cm/sec 294.0 cm/sec2 AI P1/2t: 404.5 msec ? TR max yoni: ? RAP systole: 261.0 cm/sec ?3.0 mmHg TR max P.2 mmHg RVSP(TR): 30.2 mmHg Electronically signed by: Adalid Tony MD 11/06/2019 05:27 PM Resulting Agency Comment I Procedure Note Adalid Tony MD - 11/06/2019 Adult Echocardiogram + ----- ---------+ :Name: HEIDI BARKER Study Date: 11/06/2019 Status:IN;MAINE : : [place] [id number]01Height: 68 in: : Weight: 194lb BP: 144/79 mmHg: :: 1940 Gender: Female BSA: 2.0 m2: :Reason For Study: new murmur: :Ordering Physician:: :Andi Perez: :: :Performed By: Yin: :RUSS Arroyo, RDMS: + ----- ---------+ Procedure A two-dimensional transthoracic echocardiogram with color flow and Dopplerwas performed. Left Ventricle The left ventricle is grossly normal size. There is normal leftventricular wall thickness. The left ventricular ejection fraction is normal.Ejection Fraction = 60-65%. Technically inadequate to evaluate wall motion abnormalities. Right Ventricle The right ventricle is grossly normal size. The right ventricularsystolic function is normal. Atria The left atrium is mildly dilated. Right atrial size is normal. Mitral Valve There is moderate mitral annular calcification. Tricuspid Valve The tricuspid valve is not well visualized, but is grossly normal. Thereis trace to mild tricuspid regurgitation. Aortic Valve The aortic valve is not well visualized. Aortic valve velocity is 235cm/s. Aortic valve peak gradient is 22 mm/Hg. Mild to moderate aortic regurgitation. Great Vessels The aortic root is not well visualized. IVC appears normal in size. Pericardium There is no pericardial effusion. Diastology Grade I diastolic dysfunction, (abnormal relaxation pattern). E/E primeratio is 8 -15 which is in the indeterminate zone. Interpretation Summary Aortic valve velocity is 235 cm/s. Aortic valve peak gradient is 22 mm/Hg. Mild to moderate aortic regurgitation. The left ventricular ejection fraction is normal. Ejection Fraction = 60-65%. Grade I diastolic dysfunction, (abnormal relaxation pattern). + + :Measurements with Normals: :IVSd: (0.6-1.2 LVIDd: (3.5-5.7 Ao root diam:(2.0-3.7 : :0.77 cm cm) 4.3 cm cm) 3.2 cm cm): :LVPWd: (0.6-1.1 LVIDs: (3.1-4.6 LA dimension:(1.9-4.0 : :0.77 cm cm) 2.1 cm cm) 3.6 cm cm): + + MMode/2D Measurements & Calculations IVSs: 0.77 cm LVPWs: 0.77 cm FS: 49.5 % % IVS thick:0.00 % EDV([facility]): 81.3 ml ESV([facility]): 15.3 ml LVOT diam: 1.7 cm Ao root area: 8.0 cm2 LVOT area: 2.3 cm2 Doppler Measurements & Calculations MV E max yoni: MV V2 max: MV P1/2t max yoni: Ao V2 max: 115.0 cm/sec 167.0 cm/sec 143.0 cm/sec 235.0 cm/sec MV A max yoni: MV max PG: MV P1/2t: 79.9 msec Ao max P.0 cm/sec 11.2 mmHg MVA(P1/2t): 2.8 cm2 22.1 mmHg MV E/A: 0.64 MV V2 mean: MV dec slope: Ao V2 mean: 87.0 cm/sec 153.0 cm/sec MV mean P.0 cm/sec2 Ao mean P.0 mmHg MV dec time: 0.45 sec 11.0 mmHg MV V2 VTI: Ao V2 VTI:46.8 cm 39.1 cm RUPAL(V,D): 1.5cm2 AI max yoni: LV V1 max PG: PA V2 max: RV V1 max: 406.0 cm/sec 9.5 mmHg 101.0 cm/sec 89.5 cm/sec AI max P.9 mmHgLV V1 max: PA max P.1 mmHg AI dec slope: 154.0 cm/sec 294.0 cm/sec2 AI P1/2t: 404.5 msec TR max yoni: RAP systole: 261.0 cm/sec 3.0 mmHg TR max P.2 mmHg RVSP(TR): 30.2 mmHg Electronically signed by: Adalid Tony MD 11/06/2019 05:27 PM us Andi Perez MD CV ECHO PROCEDURES Fi nal Result * (ABNORMAL) Basic metabolic panel (11/06/2019 8:17 AM DIESEL BUS MECHANIC) Sodium 139 135 - 145 mmol/L [facility] Potassium 3.8 3.3 - 5.1 mmol/L [facility] Chloride 98 96 - 108 mmol/L [facility] Carbon Dioxide 26 22 - 32 mmol/L [facility] Anion Gap 15 7 - 16 [facility] Glucose 149(H) 70 - 100 mg/dL [facility] BUN 14 8 - 25 mg/dL [facility] Creatinine 0.8 0.5 - 1.1 mg/dL [facility] Comment: NOTE: Estimated GFR (Cockroft-Gault) will NOT be calculated unless patient Height and Weight were entered. Also, Kidney Disease Stage (GFR) and Estimated GFR (Cockroft-Gault) will NOT be calculated if Creatinine result is <0.2. Kidney Disease Stage 89 mL/MIN [facility] Comment: NOTE; ??The GFR is [...] failure or on dialysis Est GFR (Cockcroft-G) 64 ml/MIN [facility] Comment: Estimated GFR(Cockroft-Gault)is used to calculate patient medication dosage Calcium 9.8 8.6 - 10.3 mg/dL [facility] 11/06/2019 8:17 AM DIESEL BUS MECHANIC 11/06/2019 8:21 AM DIESEL BUS MECHANIC Narrative Resulting Agency Comment IN Vicki Truong MD LAB BLOOD ORDERABLES Final Result Performing Organization Address City/State/[facility] Co de Phone Number [address] [phone] * (ABNORMAL) CBC with auto differential (11/06/2019 8:17 AM DIESEL BUS MECHANIC) WBC 11.5(H) 3.8 - 9.9 X10 3/ul [facility] RBC 4.59 3.90 - 5.20 x10 6/ul [facility] Hemoglobin 14.2 11.9 - 15.5 g/dL [facility] Hct 41.8 35.6 - 45.5 % [facility] MCV 91.1 81.3 - 96.4 fl [facility] MCH 30.9 27.1 - 33.3 pg [facility] MCHC 34.0 32.3 - 35.7 g/dl [facility] RDW 14.0 11.1 - 14.9 % [facility] Plt Count 293 150 - 400 x10 3/ul [facility] MPV 10.8 9.1 - 12.3 fl [facility] Neut % 87.0 % [facility] [employer] Immature Gran % 0.6 % [facility] Lymph % 8.4 % [facility] Laurel % 3.9 % [facility] [employer] Eos % 0.0 % [facility] [employer] AUTO BASO % 0.1 % [facility] NEUTROPHIL ABS # 10.0(H) 1.7 - 6.5 x10 3/ul [facility] Immature Gran # 0.1 0.0 - 0.1 x10 3/ul [facility] Absolute Lymphs (auto) 1.0 0.8 - 3.3 x10 3/ul [facility] Absolute Monos (auto) 0.5 0.2 - 0.8 x10 3/ul [facility] Absolute Eos (auto) 0.0 0.0 - 0.5 x10 3/ul [facility] BASOPHIL ABS # 0.0 0.0 - 0.1 x10 3/ul [facility] Nucleat RBC Rel Count 0.0 #/100WBC [facility] NRBC abs 0.00 0.00 - 0.01 x10 3/ul [facility] Absolute Neutrophils 10,000(H) 200 - 8,000 /ul [facility] 11/06/2019 8:17 AM DIESEL [employer] MECHANIC 11/06/2019 8:21 AM DIESEL BUS MECHANIC Narrative Resulting Agency Comment IN Vicki Truong MD LAB BLOOD ORDERABLES Final Result [facility] [address] [place] [address] * CARDIOLOGY REPORT (11/06/2019 12:00 AM DIESEL BUS MECHANIC) Anatomical Region Laterality Modality Other Narrative 11/06/2019 12:00 AM DIESEL BUS MECHANIC Ordered by an unspecified provider. Historical Provider CV CARDIAC SERVICES PROCE DURES Final Result * CARDIOLOGY REPORT (11/06/2019 12:00 AM DIESEL BUS MECHANIC) Anatomical Region Laterality Modality Other Narrative 11/06/2019 12:00 AM DIESEL BUS MECHANIC Ordered by an unspecified provider. Historical Provider CV CARDIAC SERVICES PROCE DURES Final Result * ECG 12 lead (11/05/2019 8:39 AM DIESEL BUS MECHANIC) Ventricular Rate EKG/Min 90 BPM [facility] Atrial Rate 90 BPM [facility] MI-Interval (MSEC) 182 ms [facility] QRS-Interval (MSEC) 92 ms [facility] QT-Interval (MSEC) 402 ms [facility] QTc 491 ms [facility] P [place] 58 degrees [facility] R [place] 66 degrees [facility] T [place] 81 degrees [facility] Diagnosis Normal sinus rhythm Prolonged QT Abnormal ECG When compared with ECG of 04-NOV-2019 20:56, Nonspecific T wave abnormality no longer evident in Anterior leads [facility] 11/05/2019 8:39 AM DIESEL BUS MECHANIC 11/05/2019 7:28 PM DIESEL BUS MECHANIC Narrative Resulting Agency Comment INPAT us Andi Perez MD ECG ORDERABLES Final Result Performing Organization Address [facility] Co de Phone Number [facility] * Hemoglobin A1c (11/05/2019 7:10 AM DIESEL BUS MECHANIC) Hemoglobin A1c % 5.4 4.0 - 5.6 % [facility] Comment: ADA 2016 GUIDELINES: ??Initial Diagnostic Criteria ? HbA1c Result: ?Interpretation: ?<5.7% ? Normal ?5.7-6.4% ?At risk for diabetes mellitus ?>=6.5% ?Consistent with diabetes mellitus ??Diabetes monitoring ? Target value (ADA Recommended) ?? <7% 11/05/2019 7:10 AM DIESEL [employer] MECHANIC 11/05/2019 7:15 AM DIESEL BUS MECHANIC Narrative Resulting Agency Comment IN us Andi ePrez MD LAB BLOOD ORDERAB[place] [address], [facility] [phone] * Phosphorus (11/05/2019 7:10 AM DIESEL BUS MECHANIC) Pathologist [facility] Phosphorus 2.5 2.3 - 4.5 mg/dL [facility] 11/05/2019 7:10 AM DIESEL [employer] MECHANIC 11/05/2019 7:15 AM DIESEL BUS MECHANIC Narrative Resulting Agency Comment IN us Andi Perez MD LAB BLOOD ORDERABLES Final Result [address] [phone] * (ABNORMAL) Comprehensive metabolic panel (11/05/2019 7:10 AM DIESEL BUS MECHANIC) [facility] Sodium 137 135 - 145 mmol/L [facility] Potassium 3.5 3.3 - 5.1 mmol/L [facility] Comment: Results reviewed Chloride 97 96 - 108 mmol/L [facility] Carbon Dioxide 25 22 - 32 mmol/L [facility] Anion Gap 15 7 - 16 [facility] Glucose 178(H) 70 - 100 mg/dL [facility] BUN 9 8 - 25 mg/dL [facility] Creatinine 0.7 0.5 - 1.1 mg/dL [facility] Comment: NOTE: Estimated GFR (Cockroft-Gault) will NOT be calculated unless patient Height and Weight were entered. Also, Kidney Disease Stage (GFR) and Estimated GFR (Cockroft-Gault) will NOT be calculated if Creatinine result is <0.2. Kidney Disease Stage >90 mL/MIN [facility] Comment: NOTE; ??The GFR is [...] failure or on dialysis Est GFR (Cockcroft-G) 73 ml/MIN [facility] Comment: Estimated GFR(Cockroft-Gault)is used to calculate patient medication dosage Calcium 9.2 8.6 - 10.3 mg/dL [facility] Total Protein 6.8 6.4 - 8.3 g/dL [facility] Albumin 4.1 3.5 - 5.0 g/dL [facility] Globulin 2.7 2.3 - 3.5 gm/dL [facility] Albumin/Globulin Ratio 1.5 1.1 - 1.8 [facility] Total Bilirubin 0.2 0.0 - 1.2 mg/dL [facility] AST 45(H) 0 - 32 U/L [facility] ALT 34(H) 0 - 33 U/L [facility] Alkaline Phosphatase 66 35 - 104 U/L [facility] 11/05/2019 7:10 AM [employer] 11/05/2019 7:15 AM [employer] Narrative Resulting Agency Comment IN Andi Perez MD LAB BLOOD ORDERABLES Final Result Performing Organization Address City/State/[facility] Co de Phone Number [address] [phone] * Lactate (11/05/2019 7:10 AM [employer]) LACTATE 1.4 mmol/L [facility] Comment: Lactate Reference Range: 0.5 - 2.2 mmol/L 11/05/2019 7:10 AM [employer] 11/05/2019 7:15 AM [employer] Narrative Resulting Agency Comment IN Andi Perez MD LAB BLOOD ORDERABLES Final Result [facility] [address] [place] [address], [facility] [phone] * (ABNORMAL) CBC with auto differential (11/05/2019 7:10 AM DIESEL BUS MECHANIC) WBC 5.4 3.8 - 9.9 X10 3/ul [facility] RBC 4.06 3.90 - 5.20 x10 6/ul [facility] Hemoglobin 12.5 11.9 - 15.5 g/dL [facility] Hct 36.0 35.6 - 45.5 % [facility] MCV 88.7 81.3 - 96.4 fl [facility] MCH 30.8 27.1 - 33.3 pg [facility] MCHC 34.7 32.3 - 35.7 g/dl [facility] RDW 13.7 11.1 - 14.9 % [facility] Plt Count 251 150 - 400 x10 3/ul [facility] MPV 10.6 9.1 - 12.3 fl [facility] Neut % 87.9 % [facility] Immature Gran % 0.4 % [facility] Lymph % 9.1 % [facility] [place] % 1.3 % [facility] Eos % 0.6 % [facility] AUTO BASO % 0.7 % [facility] NEUTROPHIL ABS # 4.8 1.7 - 6.5 x10 3/ul [facility] Immature Gran # 0.0 0.0 - 0.1 x10 3/ul [facility] Absolute Lymphs (auto) 0.5(L) 0.8 - 3.3 x10 3/ul [facility] Absolute Monos (auto) 0.1(L) 0.2 - 0.8 x10 3/ul [facility] Absolute Eos (auto) 0.0 0.0 - 0.5 x10 3/ul [facility] BASOPHIL ABS # 0.0 0.0 - 0.1 x10 3/ul [facility] Nucleat RBC Rel Count 0.0 #/100WBC [facility] NRBC abs 0.00 0.00 - 0.01 x10 3/ul [facility] Absolute Neutrophils 4,800 200 - 8,000 /ul [facility] 11/05/2019 7:10 AM DIESEL BUS MECHANIC 11/05/2019 7:15 AM 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 D.O.B: 1940 ? Exam Date: 11/05/19 ?? 0000 ?? Age: 79 ?Sex: Female ? MR#: [id number] ?? Loc: ??[id number] ? RADIOLOGY REPORT ?? Order #[id number] ?? CT Scan ? CTA Chest W IV Contrast - PE ? Signed ? EXAM DESCRIPTION: ??CTA Chest W IV Contrast - PE ? REASON FOR STUDY: ??hypoxia, tachycardic; r/o PE ? TECHNIQUE: ??CT angiogram of the chest performed with intravenous contrast ?? using helical scanning technique with dynamic intravenous contrast injection. ?? Reconstructed coronal and sagittal MPR images reviewed. All images stored on ?? PACS. 3D MIP images rendered on scanning unit and reviewed at time of ?? interpretation. Automated exposure control was used as a dose optimization ?? technique for this examination. ? CONTRAST TYPE/DOSE: ??80 cc Optiray 350 injected via right antecubital IV ? COMPARISON: ??None ? FINDINGS: ?VASCULATURE: Bolus timing is adequate and no filling defect is seen in the ?? pulmonary arterial tree. ??Systemic arterial structures are partially opacified ?? and reveal no acute abnormality. ? MEDIASTINUM/ANNI: Heart size normal. ?? Mild coronary arterial and annular ?? calcification. ??Thoracic inlet unremarkable. ??No enlarged lymph node. ? LUNGS: Small cluster of hazy nodular opacities in the right lower lobe. ? Trachea and major airways patent. ? UPPER ABDOMEN: Unremarkable. ? MUSCULOSKELETAL: Mild multilevel endplate osteophytosis. ? IMPRESSION: ? 1. ??No PE. ? 2. ??Small right lower lobe pneumonia. ? THIS IS AN ELECTRONICALLY VERIFIED FINAL REPORT ?? 11/05/2019 1:08 AM - Electronically signed by Vidal Cuevas M.D. ?? Vidal Cuevas M.D. ? AR: AR ?? D: ??11/05/2019 1:08 AM ?? T: ??11/05/2019 1:08 AM ? Report ID: [id number] ?? Reading Location: ??[id number] ? REPORT ELECTRONICALLY SIGNED IN OTHER VENDOR SYSTEM ?? Resulting Agency Comment I Procedure Note Vidal Cuevas MD - 11/05/2019 Patient Name: HEIDI BARKER Dr: Andi Perez MD DKrissO.B: 1940 Exam Date: 11/05/19 0000 Age: 79 Sex: Female MR#: [id number] Loc: [id number] RADIOLOGY REPORT Order #[id number] CT Scan CTA Chest W IV Contrast - PE Signed EXAM DESCRIPTION: CTA Chest W IV Contrast - PE REASON FOR STUDY: hypoxia, tachycardic; r/o PE TECHNIQUE: CT angiogram of the chest performed with intravenous contrast using helical scanning technique with dynamic intravenous contrastinjection. Reconstructed coronal and sagittal MPR images reviewed. All images storedon PACS. 3D MIP images rendered on scanning unit and reviewed at time of interpretation. Automated exposure control was used as a doseoptimization technique for this examination. CONTRAST TYPE/DOSE: 80 cc Optiray 350 injected via right antecubital IV COMPARISON: None FINDINGS: VASCULATURE: Bolus timing is adequate and no filling defect is seen inthe pulmonary arterial tree. Systemic arterial structures are partiallyopacified and reveal no acute abnormality. MEDIASTINUM/ANNI: Heart size normal. Mild coronary arterial and annular calcification. Thoracic inlet unremarkable. No enlarged lymph node. LUNGS: Small cluster of hazy nodular opacities in the right lower lobe. Trachea and major airways patent. UPPER ABDOMEN: Unremarkable. MUSCULOSKELETAL: Mild multilevel endplate osteophytosis. IMPRESSION: 1. No PE. 2. Small right lower lobe pneumonia. THIS IS AN ELECTRONICALLY VERIFIED FINAL REPORT 11/05/2019 1:08 AM - Electronically signed by Vidal Cuevas M.D. AR: DEVONTE Report ID: [id number] Reading Location: [id number] REPORT ELECTRONICALLY SIGNED IN OTHER VENDOR SYSTEM Andi Perez MD IMG CT PROCEDURES Fin al Result * (ABNORMAL) Lactate (11/04/2019 11:21 PM DIESEL BUS MECHANIC) LACTATE 3.2(HH) mmol/L [facility] Comment: CRITICAL VALUE CALLED and REPEATED. at:0003 11/05/19 by:Reymundo Zavala to: [id number] Lactate Reference Range: 0.5 - 2.2 mmol/L 11/04/2019 11:2 1 PM DIESEL BUS MECHANIC 11/04/2019 11:27 PM DIESEL BUS MECHANIC Narrative Resulting Agency Comment IN Arti MCNEAL LAB BLOOD ORDERABLES Fin al Result [address] [phone] * ECG 12 lead (11/04/2019 8:56 PM DIESEL BUS MECHANIC) Ventricular Rate EKG/Min 103 BPM [facility] Atrial Rate 103 BPM [facility] MI-Interval (MSEC) 200 ms [facility] QRS-Interval (MSEC) 92 ms [facility] QT-Interval (MSEC) 376 ms [facility] QTc 492 ms [facility] P [place] 40 degrees [facility] R [place] 69 degrees [facility] T [place] 81 degrees [facility] Diagnosis Sinus tachycardia Nonspecific ST and T wave abnormality Abnormal ECG When compared with ECG of 26-FEB-2019 00:13, No significant change was found [facility] 11/04/2019 8:56 PM DIESEL BUS MECHANIC 11/05/2019 7:21 PM DIESEL BUS MECHANIC Narrative Resulting Agency Comment INPAT Andi Perez MD ECG ORDERABLES [place] [address], [facility] * (ABNORMAL) Blood gas with lactate (11/04/2019 8:48 PM DIESEL BUS MECHANIC) Specimen Type Arterial [facility] Puncture Site RR [facility] Patient Temperature 37.0 C [facility] pH 7.483(H) 7.350 - 7.450 [facility] pCO2 35.8 32.0 - 48.0 mmHg [facility] pO2 55.7(L) 80.0 - 110.0 mmHg [facility] HCO3 26.5(H) 22.0 - 26.0 mmol/L [facility] Total CO2 27.6 20.0 - 30.0 mmol/L [facility] Base Excess 3.6(H) -2.0 - 2.0 mmol/L [facility] Hb (BLOOD GAS) 13.4 12.1 - 15.1 g/dL [facility] O2 Saturation 87.0(L) 90.0 - 95.0 % [facility] ABG Carboxyhemoglobin 1.4 <3.0 % [facility] ABG Methemoglobin 0.6 <2.0 % [facility] ABG O2 Content 16.4(L) 17.6 - 24.3 Vol % [facility] Lactate 3.5(HH) 0.5 - 2.0 mmol/L [facility] Comment: CRITICAL VALUE CALLED and REPEATED. at:205411/04/19 by:Cinda Lopes to: [id number] A-a O2 Difference 51.4(H) <=10.0 [facility] a/A Ratio 0.5(L) >=0.8 [facility] FiO2 21.0 % [facility] BG Specimen Comment ED10 [facility] Heel Cementer ID JAG [facility] 11/04/2019 8:48 PM DIESEL BUS MECHANIC 11/04/2019 8:53 PM DIESEL BUS MECHANIC Narrative [facility] - 11/04/2019 8:55 PM DIESEL BUS MECHANIC Conditions Oxygen Source Arterial Resulting Agency Comment ER us Laura Patiño MD LAB BLOOD ORDERABLES Rola l Result Performing Organization Address [facility] Co de Phone Number [address] [phone] * Influenza A/B PCR (11/04/2019 7:45 PM DIESEL BUS MECHANIC) Influenza A RNA POSITIVE NEGATIVE [facility] Influenza B RNA NEGATIVE NEGATIVE [facility] 11/04/2019 7:45 PM DIESEL BUS MECHANIC 11/04/2019 7:55 PM DIESEL BUS MECHANIC Narrative [facility] - 11/04/2019 8:27 PM DIESEL BUS MECHANIC Collected By fcb Resulting Agency Comment ER us Arti MCNEAL LAB MICROBIOLOGY - GENER AL ORDERABLES Final Result Performing Organization Address [facility] de Phone Number [address] [phone] * XR Chest Pa Lateral 2 Views (11/04/2019 7:15 PM DIESEL BUS MECHANIC) Anatomical Region Laterality Modality Body, Chest N/A Radiographic Rachel ging 11/04/2019 7:58 PM DIESEL BUS MECHANIC Narrative 11/04/2019 8:00 PM DIESEL BUS MECHANIC Patient Name: HEIDI BARKER ?Ordering : Arti Chris-Rukhsana ?? D.O.B: 1940 ? Exam Date: 02/22/20 ?? 1915 ?? Age: 79 ?Sex: Female ? MR#: [id number] ?? Loc: ? RADIOLOGY REPORT ?? Order #[id number] ?? Radiology ? Chest 2 Views ? Signed ? EXAM DESCRIPTION: ??Chest 2 Views ? REASON FOR STUDY: ??SOB for 3 days, becoming worse audible wheezing, tachypenia ?? ,frontal headache. ? TECHNIQUE: ??Frontal and lateral radiographic views of the chest acquired. ? COMPARISON: ??02/26/2019 ? FINDINGS: ? LUNGS/PLEURA: No focal consolidation or pneumothorax. No pleural effusion. ? Minimal atelectasis medial right lung base. ? HEART/MEDIASTINUM: Heart size is normal. Normal mediastinal and hilar contours. ? HARDWARE/LINES/TUBES: None. ? BONES: No acute findings. ? OTHER: Atherosclerotic calcification of the aorta. ? IMPRESSION: ??No consolidation. ??Trace atelectasis medial right lung base. ? Normal heart size. ? THIS IS AN ELECTRONICALLY VERIFIED FINAL REPORT ?? 11/04/2019 8:00 PM - Electronically signed by Gurvinder Alcantar ?? Gurvinder Alcantar ? : ?? D: ??11/04/2019 8:00 PM ?? T: ??11/04/2019 8:00 PM ? Report ID: [id number] ?? Reading Location: ??[id number] ? REPORT ELECTRONICALLY SIGNED IN OTHER VENDOR SYSTEM ?? Resulting Agency Comment E Procedure Note Gurvinder Alcantar MD - 11/04/2019 Patient Name: KASSANDRAHEIDI Dr: Arti Chris PA-C, D.O.B: 1940 Exam Date: 11/04/191914 Age: 79 Sex: Female MR#: [id number] Loc: RADIOLOGY REPORT Order #[id number] Radiology Chest 2 Views Signed EXAM DESCRIPTION: Chest 2 Views REASON FOR STUDY: SOB for 3 days, becoming worse audible wheezing,tachypenia ,frontal headache. TECHNIQUE: Frontal and lateral radiographic views of the chest acquired. COMPARISON: 02/26/2019 FINDINGS: LUNGS/PLEURA: No focal consolidation or pneumothorax. No pleuraleffusion. Minimal atelectasis medial right lung base. HEART/MEDIASTINUM: Heart size is normal. Normal mediastinal and hilarcontours. HARDWARE/LINES/TUBES: None. BONES: No acute findings. OTHER: Atherosclerotic calcification of the aorta. IMPRESSION: No consolidation. Trace atelectasis medial right lung base. Normal heart size. THIS IS AN ELECTRONICALLY VERIFIED FINAL REPORT 11/04/2019 8:00 PM - Electronically signed by Gurvinder Alcantar : Report ID: [id number] Reading Location: [place] [address] REPORT ELECTRONICALLY SIGNED IN OTHER VENDOR SYSTEM Arti MCNEAL IMG XR PROCEDURES Final Result * (ABNORMAL) Sepsis Lactate (11/04/2019 7:10 PM DIESEL BUS MECHANIC) Sepsis lactate 5.0(HH) mmol/L [facility] Comment: CRITICAL VALUE CALLED and REPEATED. at:203111/04/19 by:Otilia York to:[id number] Lactate Reference Range: 0.5 - 2.2 mmol/L 11/04/2019 7:10 PM DIESEL BUS MECHANIC 11/04/2019 7:24 PM DIESEL BUS MECHANIC Narrative Resulting Agency Comment IN Arti MCNEAL LAB BLOOD ORDERABLES Fin al Result Performing Organization Address City/[facility] Co de Phone Number [address] [phone] * Magnesium (11/04/2019 7:10 PM DIESEL BUS MECHANIC) Pathologist [facility] Magnesium 2.1 1.6 - 2.6 mg/dL [facility] Comment: Magnesium sulfate therapy: ??3.0-9.1 mg/dL 11/04/2019 7:10 PM DIESEL BUS MECHANIC 11/04/2019 7:24 PM DIESEL BUS MECHANIC Narrative Resulting Agency Comment ER Arti MCNEAL LAB BLOOD ORDERABLES Fin al Result Performing Organization Address [facility] de Phone Number [address] [phone] * Procalcitonin (11/04/2019 7:10 PM DIESEL BUS MECHANIC) Procalcitonin 0.07 0.0 - 0.24 ng/mL [facility] Comment: Guidelines for use with Community Acquired Pneumonia(CAP)- ONLY: ?? <0.1 ng/mL: Use of antibiotics is STRONGLY discouraged ?? 0.1-0.24 ng/mL: Use of antibiotics is discouraged ?? 0.25-0.5 ng/mL: Use of antibiotics is encouraged ?? >0.5 ng/mL: Use of antibiotics is STRONGLY encouraged ?? Recommend repeating every 2-3 days if initial PCT >0.24 Procalcitonin 0.07 0.0 - 0.24 ng/mL [facility] Comment: Guidelines for use with Community Acquired Pneumonia(CAP)- ONLY: ?? <0.1 ng/mL: Use of antibiotics is STRONGLY discouraged ?? 0.1-0.24 ng/mL: Use of antibiotics is discouraged ?? 0.25-0.5 ng/mL: Use of antibiotics is encouraged ?? >0.5 ng/mL: Use of antibiotics is STRONGLY encouraged ?? Recommend repeating every 2-3 days if initial PCT >0.24 11/04/2019 7:10 PM DIESEL BUS MECHANIC 11/04/2019 7:24 PM DIESEL BUS MECHANIC Narrative Resulting Agency Comment ER us Arti MCNEAL LAB BLOOD ORDERABLES Fin al Result [place] [id number] [address] [phone] * (ABNORMAL) Comprehensive metabolic panel (11/04/2019 7:10 PM DIESEL BUS MECHANIC) Sodium 130(L) 135 - 145 mmol/L [facility] Potassium 2.6(L) 3.3 - 5.1 mmol/L [facility] Chloride 88(L) 96 - 108 mmol/L [facility] Carbon Dioxide 24 22 - 32 mmol/L [facility] Anion Gap 18(H) 7 - 16 [facility] Glucose 141(H) 70 - 100 mg/dL [facility] BUN 12 8 - 25 mg/dL [facility] Creatinine 1.0 0.5 - 1.1 mg/dL [facility] Comment: NOTE: Estimated GFR (Cockroft-Gault) will NOT be calculated unless patient Height and Weight were entered. Also, Kidney Disease Stage (GFR) and Estimated GFR (Cockroft-Gault) will NOT be calculated if Creatinine result is <0.2. Kidney Disease Stage 68 mL/MIN [facility] Comment: NOTE; ??The GFR is [...] failure or on dialysis Est GFR (Cockcroft-G) 51 ml/MIN [facility] Comment: Estimated GFR(Cockroft-Gault)is used to calculate patient medication dosage Calcium 9.9 8.6 - 10.3 mg/dL [facility] Total Protein 7.4 6.4 - 8.3 g/dL [facility] Albumin 4.4 3.5 - 5.0 g/dL [facility] Globulin 3.0 2.3 - 3.5 gm/dL [facility] Albumin/Globulin Ratio 1.5 1.1 - 1.8 [facility] Total Bilirubin 0.3 0.0 - 1.2 mg/dL [facility] AST 49(H) 0 - 32 U/L [facility] ALT 36(H) 0 - 33 U/L [facility] Alkaline Phosphatase 69 35 - 104 U/L [facility] 11/04/2019 7:10 PM DIESEL BUS MECHANIC 11/04/2019 7:24 PM DIESEL BUS MECHANIC Narrative Resulting Agency Comment ER us Arti MCNEAL LAB BLOOD ORDERABLES Terry krupa Result - Final [facility] [address] [place] [address] * (ABNORMAL) CBC with auto differential (11/04/2019 7:10 PM DIESEL BUS MECHANIC) WBC 6.8 3.8 - 9.9 X10 3/ul [facility] RBC 4.14 3.90 - 5.20 x10 6/ul [facility] Hemoglobin 12.8 11.9 - 15.5 g/dL [facility] Hct 36.7 35.6 - 45.5 % [facility] MCV 88.6 81.3 - 96.4 fl [facility] MCH 30.9 27.1 - 33.3 pg [facility] MCHC 34.9 32.3 - 35.7 g/dl [facility] RDW 13.7 11.1 - 14.9 % [facility] Plt Count 260 150 - 400 x10 3/ul [facility] MPV 10.7 9.1 - 12.3 fl [facility] Neut % 78.3 % [facility] Immature Gran % 0.6 % [facility] Lymph % 8.8 % [facility] [place] % 9.5 % [facility] Eos % 1.3 % [facility] AUTO BASO % 1.5 % [facility] NEUTROPHIL ABS # 5.4 1.7 - 6.5 x10 3/ul [facility] Immature Gran # 0.0 0.0 - 0.1 x10 3/ul [facility] Absolute Lymphs (auto) 0.6(L) 0.8 - 3.3 x10 3/ul [facility] Absolute Monos (auto) 0.7 0.2 - 0.8 x10 3/ul [facility] Absolute Eos (auto) 0.1 0.0 - 0.5 x10 3/ul [facility] BASOPHIL ABS # 0.1 0.0 - 0.1 x10 3/ul [facility] Nucleat RBC Rel Count 0.0 #/100WBC [facility] NRBC abs 0.00 0.00 - 0.01 x10 3/ul [facility] Absolute Neutrophils 5,400 200 - 8,000 /ul [facility] 11/04/2019 7:10 PM DIESEL BUS MECHANIC 11/04/2019 7:24 PM DIESEL BUS MECHANIC Narrative Resulting Agency Comment ER us Arti MCNEAL LAB BLOOD ORDERABLES Fin al Result [address] [phone] documented in this encounter Visit Diagnoses Not on filedocumented in this encounter Care Teams Mine Supervisor Relationship Specialty Start Date End Date Stephen Anguiano MD [address] [place] [address] PCP - General 02/25/19 06/18/23 documented as of this encounter
--- OUTSIDE RECORDS SUMMARY | 2024-09-18 11:37 | XMS_ITS | Clinical Summary ---
Author Organization [facility] [place] [facility] Address [address] [place] [address] Care Team Providers Care Medical Office Professional Instructor Name Role Phone Minerva Castro NP Primary Care Provider [phone] Allergies No known active allergies Medications ADVAIR HFA 115-21 mcg/actuation inhaler 2 puffs 2 (two) times a day 10/05/19 20 Active fluticasone propionate (FLONASE) 50 mcg/actuation nasal spray 10/05/19 20 Active traMADol (ULTRAM) 50 mg tablet 3 10/04/19 20 Active amLODIPine (NORVASC) 10 mg tablet Take 10 mg by mouth daily Active albuterol 2.5 mg /3 mL (0.083 %) nebulizer solution Take 2.5 mg by nebulization every 6 (six) hours as needed for wheezing Active loratadine (CLARITIN) 10 mg tablet Take 10 mg by mouth daily Active albuterol HFA (PROVENTIL HFA,VENTOLIN HFA,PROAIR HFA) 90 mcg/actuation inhaler Inhale 2 puffs every 6 (six) hours as needed for wheezing Active olopatadine (PATANOL) 0.1 % ophthalmic solutionIndication s:Allergic Conjunctivitis 1 drop 2 (two) times a day Active Active Problems Problem Noted Date Diagnosed Date Restrictive lung disease 12/12/2019 Chronic obstructive pulmonary disease 12/12/2019 Nonrheumatic aortic valve insufficiency 12/12/19 20 Diastolic dysfunction 12/12/2019 Uncomplicated asthma 10/24/2019 Chronic cough 10/24/2019 Shortness of breath 10/24/2019 Non-seasonal allergic rhinitis due to pollen 07/2020 Sleep disorder 10/24/2019 Non-smoker 10/24/2019 Surgical History Surgery Date Site/Laterality Comments TONSILLECTOMY Medical History Medical History Date Comments Asthma Hypertension Family History Medical History Relation Name Comments Hypertension Mother Relation Name Status Comments Father Mother Social History Tobacco Use Types Packs/Day Years Used Date Smoking Tobacco: Never Smokeless Tobacco: Current Chew Comments:ocas uses chew Alcohol Use Standard Drinks/Week Comments Yes 0 (1 standard drink = 0.6 oz pur e alcohol) rarely Comments Unknown Sex and Gender Information Value Date Recorded Sex Assigned at Not on file Legal Sex Female 7:55 PM OBSTETRICAL NURSE Gender Identity Not on file Sexual Orientation Not on file Obstetrics History Last Filed Vital Signs Vital Sign Reading Time Taken Comments Blood Pressure 133/73 11/05/2019 2:00 AM OBSTETRICAL NURSE Pulse 74 11/15/2019 9:00 AM OBSTETRICAL NURSE Temperature 36.7 ??C (98 ??F) 11/05/2019 2:00 AM OBSTETRICAL NURSE Respiratory Rate 20 10/24/2019 2:10 PM OBSTETRICAL NURSE Oxygen Saturation 94% 11/05/2019 2:00 AM OBSTETRICAL NURSE Inhaled Oxygen Concentration - - Weight 84.4 kg (186 lb) 12/12/2019 1:58 PM CDT Height 172.7 cm (5' 8 ) 11/05/2019 2:00 AM OBSTETRICAL NURSE Body Mass Index 28.28 11/05/2019 2:00 AM OBSTETRICAL NURSE Plan of Treatment Health Maintenance Due Date Last Done Comments Depression Screening 1940 Fall Risk Assessment 1940 DTaP/Tdap/Td Vaccine (1 - Tdap) 1949 Hepatitis B Screening 1956 Zoster Vaccine (1 of 2) 1988 Well Visit 65+ 2003 Influenza Vaccine (#1) 2024 07/20/2019, 2016 Pneumococcal vaccine 65+ Completed 019, 05/25/2017, 07/05/2015 Insurance MEDICARE SOL[employer]IONS Care Teams Medical Office Professional Instructor Relationship Specialty Start Date End Date Minerva Castro NP PCP - General Emergency Medicine 06/19/23
--- OUTSIDE RECORDS SUMMARY | 2024-09-18 11:37 | XMS_ITS | Encounter Summary ---
Author Organization [facility] Address [address] [place] [address] Care Team Providers Care Bull Chain Operator Name Role Phone Stephen Anguiano MD Primary Care Provider [phone] Reason for Visit * Reason Comments TELEVISIT * Consultation (Routine) - Closed Specialty Diagnoses / Procedures Referred By Contac t Referred To Contact Pulmonary Disease / Pulmonology Diagnoses Uncomplicated asthma, unspecified asthma severity, unspecified whether persistent Stephen Anguiano MD Phone: tel: fax: [facility] [address] [facility] [address] [place] [id number] Phone: tel: fax: Referral ID Status Reason Start Date Expiration Date V isits Requested Visits Authorized [id number] Closed Specialty Services Required 10/18/2019 04/15/2020 6 6 Encounter Details Date Type Department Care Team (Late st Contact Info) Description 12/12/2019 1:30 PM CDT Telemedicine [facility] Pulmonology [address] [place] [address] [facility] [address] [facility] [address] [place] [id number] Chronic obstructive pulmonary disease, unspecified COPD type (CMS/HCC) (Primary Dx); Restrictive lung disease; Shortness of breath; Chronic cough; Sleep disorder; Non-smoker; Non-seasonal allergic rhinitis due to pollen; Nonrheumatic aortic valve insufficiency; Diastolic dysfunction Social History Tobacco Use Types Packs/Day Years Used Date Smoking Tobacco: Never Smokeless Tobacco: Current Chew Comments:ocas uses chew Alcohol Use Standard Drinks/Week Comments Yes 0 (1 standard drink = 0.6 oz pur e alcohol) rarely Comments Unknown Sex and Gender Information Value Date Recorded Sex Assigned at Not on file Legal Sex Female 7:55 PM COMMUNICATIONS MEDIA PROFESSOR Gender Identity Not on file Sexual Orientation Not on file COVID-19 Exposure Response Date Recorded In the last month, have you been in contact with someone who was confirmed or suspected to have Coronavirus / COVID-19? No / Unsure 12/11/2019 2:06 PM CDT documented as of this encounter Last Filed Vital Signs Vital Sign Reading Time Taken Comments Blood Pressure - - Pulse - - Temperature - - Respiratory Rate - - Oxygen Saturation - - Inhaled Oxygen Concentration - - Weight 84.4 kg (186 lb) 12/12/2019 1:58 PM CDT Height - - Body Mass Index 28.28 11/05/2019 2:00 AM COMMUNICATIONS MEDIA PROFESSOR documented in this encounter Progress Notes * Cas Mujica MD - 12/12/2019 1:30 PM CDT Subjective/Objective Patient ID: Heidi Barker is a 79 y.o. female. Chief Complaint Chief Complaint Patient presents with ??? TELEVISIT HPI Active pulmonary problem list: Moderate COPD, FEV1 63%, FVC 79%, FEV1/FVC 61%, DLCO 65%,BD+(2019). Restrictive lung defect, TLC 66%. No history of smoking. Allergic rhinitis. Aortic regurgitation, was seen on 2D echocardiogram in October of 2019. Diastolic dysfunction. Exertional dyspnea. Chronic cough. Sleep disturbances. Patient is here for follow-up is this is a telemedicine visit. Patient relates to me that she is still having shortness breath. She was in the hospital in October of 2019 for influenza A infection and right lower lobe pneumonia. She was treated successfully and was discharged. Patient has 2D echocardiogram which showed she does have aortic regurgitation and diastolic dysfunction. She does not have a graduate teacher education. She is using Advair HFA 115/21, 2 puffs twice a day on a regular basis. She is using albuterol and Atrovent via nebulizer 4 times a day. She continued to be little bit weak. She is using Flonase on a regular basis. Her overnight pulse oximeter study is not available to me. Her PFTs was reviewed with her. No Known Allergies Review of Systems Constitutional: Negative for appetite change, chills, fatigue and fever. HENT: Positive for postnasal drip. Negative for congestion, ear pain, mouth sores, [...] Psychiatric/Behavioral: Negative for agitation and confusion. Vitals Wt 84.4 kg (186 lb) Physical Exam Diagnoses and all orders for this visit: Chronic obstructive pulmonary disease, unspecified COPD type (CMS/HCC) (Primary) Restrictive lung disease Shortness of breath Chronic cough Sleep disorder Non-smoker Non-seasonal allergic rhinitis due to pollen Nonrheumatic aortic valve insufficiency Diastolic dysfunction Results: Lab Results Component Value Date WBC 7.0 11/08/2019 HGB 13.7 11/08/2019 HCT 40.8 11/08/2019 MCV 91.3 11/08/2019 LABPLAT 289 11/08/201910/2019 Interpretation Summary Aortic valve velocity is 235 cm/s. Aortic valve peak gradient is 22 mm/Hg. Mild to moderate aortic regurgitation. The left ventricular ejection fraction is normal. Ejection Fraction = 60-65%. Grade I diastolic dysfunction, (abnormal relaxation pattern). 10/2019 IMPRESSION: 1. No PE. 2. Small right lower lobe pneumonia. Plan: Patient will return back in 2 months for re-evaluation. Patient will continue using Advair HFA 115/21 2puffs b.i.d. on a regular basis. She will continue using albuterol and Atrovent via nebulizer onas needed basis. She is also using Flonase on a regular basis. I'll check with Leelee about her overnight pulse oximeter study. Patient was advised to discuss with her graduate teacher education about aortic regurgitation. She was advised that it is probably contributing to her shortness of breath. Patient is up-to-date with the flu vaccine., please see further details for assessment and plan in HPI. This was a telemedicine visit with Heidi Barker which took place via telephone. During the visit, I was located at the pulmonary office and the patient was located at home. The session started at 13:57 PM and ended at 14:10 PM The patient has been informed that the visit may not be secure and acknowledged the information. I have explained the option of participating in a telephone or video visit during the COVID-19 public health emergency to the patient. After being given an opportunity to ask questions about and discuss this type of visit, the patient verbally consented to proceeding with the telephone / video visit. The patient understands that this service replaces an office visit and they may be billed and/or responsible for any applicable copayments. documented in this encounter Plan of Treatment Not on file documented as of this encounter Visit Diagnoses Diagnosis Chronic obstructive pulmonary disease, unspecified COPD type (HCC)- Primary Restrictive lung disease Other diseases of lung, not elsewhere classified Shortness of breath Chronic cough Cough Sleep disorder Unspecified sleep disturbance Non-smoker Non-seasonal allergic rhinitis due to pollen Nonrheumatic aortic valve insufficiency Diastolic dysfunction Unspecified heart disease documented in this encounter Care Teams Bull Chain Operator Relationship Specialty Start Date End Date Stephen Anguiano MD [address] [place] [address] PCP - General 02/25/19 06/18/23 documented as of this encounter
--- OUTSIDE RECORDS SUMMARY | 2024-09-18 11:37 | XMS_ITS | Referral Summary ---
Author Organization [facility] Address [address] [place] [address] Care Team Providers Care Family Medicine Resident Name Role Phone Minerva Castro NP Primary Care Provider [phone] Allergies No known active allergies Medications ADVAIR [...] pollen 07/2020 Sleep disorder 10/24/2019 Non-smoker 10/24/2019 Social History Tobacco Use Types Packs/Day Years Used Date Smoking Tobacco: Never Smokeless Tobacco: Current Chew Comments:ocas uses chew Alcohol Use Standard Drinks/Week Comments Yes 0 (1 standard drink = 0.6 oz pur e alcohol) rarely Comments Unknown Sex and Gender Information Value Date Recorded Sex Assigned at Not on file Legal 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 Gender Identity Not on file Sexual Orientation Not on file Last Filed Vital Signs Vital Sign Reading Time Taken Comments Blood Pressure 133/73 11/05/2019 2:00 AM CARPET JOURNEYMAN Pulse 74 11/15/2019 9:00 AM CARPET JOURNEYMAN Temperature 36.7 ??C (98 ??F) 11/05/2019 2:00 AM CARPET JOURNEYMAN Respiratory Rate 20 10/24/2019 2:10 PM CARPET JOURNEYMAN Oxygen Saturation 94% 11/05/2019 2:00 AM CARPET JOURNEYMAN Inhaled Oxygen Concentration - - Weight 84.4 kg (186 lb) 12/12/2019 1:58 PM CDT Height 172.7 cm (5' 8 ) 11/05/2019 2:00 AM CARPET JOURNEYMAN Body Mass Index 28.28 11/05/2019 2:00 AM CARPET JOURNEYMAN Plan of Treatment Not on file Insurance [facility] Address: [facility] [address] [place] [address] MEDICARE [employer] Care Teams Family Medicine Resident Relationship Specialty Start Date End Date Minerva Castro NP PCP - General Emergency Medicine 06/19/23
--- NOTE | 2024-10-02 18:48 | P.SLEEP_ITS ---
Sleep Study Date of Study: 09/11/24 Ordering Provider: RomarioNano NP-Rukhsana Interpreting Physician: Ifeoma Alejandro MD Sleep Study Type: Polysomnogram Height: 1.73 m Weight: 81.647 kg Body Mass Index: 27.3 Neck Circumference (inches): 15 La Ward: 2 Reason for Sleep Study Poor quality sleep, frequently awakening from sleep feeling short of breath Sleep History Heidi Dodson is an 84-year-old woman with difficulty falling asleep and staying asleep. She awakens during the night, she is excessively sleepy in the daytime. She constantly awakens from sleep feeling short of breath. She frequently awakens at night with heartburn, belching or coughing. She constantly snores, and is always loud enough that others complain about it. She always has difficulty sleeping when she has a cold. She constantly wakes up gasping for breath during the night. She constantly has breathing problems at night observed by others. She does not sweat excessively at night. She frequently notices her heart pounding or beating irregularly at night. She does not usually fall asleep during the day. She does not fall asleep involuntarily nor while driving. She does not have loss of muscle tone with strong emotion. She does not have daytime difficulties sleepiness. She does not feel paralyzed on waking or falling asleep. She does not have vivid dreamlike scenes upon awakening or falling asleep. She occasionally feels afraid of going to sleep. She occasionally has nightmares. She does not have dream recall. She occasionally has racing thoughts her mind. She occasionally feels sad or depressed. She very frequently has anxiety. She occasionally has muscular tension. She occasionally notices parts of her body jerking. She occasionally kicks at night. She occasionally has aching and crawling feelings in her legs. She does not have any kind of leg pain at night. She does not have morning jaw pain nor does she grind her teeth during sleep. She is not bothered by pain during the day nor she awakened by pain during the night. She does not wake up feeling stiff in the morning with sore achy muscles. She has fatigue, depression, insomnia and memory problems. Her primary care note indicates that she awakens with a dry mouth, awakens at night feeling short of breath, has loud snoring gasping for air. She has witnessed apneas. Normal bedtime is 10:00 p.m. falling asleep within 2-3 hours, typically waking 2 or 3 times during the night. When she awakens she may watch television. Her normal wake time is 6:30 a.m.. Her family estimates that she gets between 2 and 4 hours of sleep at night. She keeps the same schedule on weekends. She takes naps in the afternoon or evening, however a short nap is not refreshing. Habits: Tobacco: Never smoker Caffeine: she consumes caffeine daily Alcohol: none Recreational substances: none [facility] Past Medical History Medical History (Updated 10/03/24 @ 16:35 by Ifeoma Alejandro MD) Heartburn Asthma VELARDE (dyspnea on exertion) Depression Hypertension Dementia Social History Social History (Updated 10/02/24 @ 18:59 by Ifeoma Alejandro MD) Smoking status: Never smoker Alcohol intake: never Substance use: never Medications Medications: Medication list from her primary care visit on 07/03/2024 Advair HFA 115 mcg/21 mcg 2 puffs b.i.d. Albuterol sulfate 2.5 mg/3 mL 0.083% nebulization t.i.d. Albuterol sulfate HFA 90 mcg per puff 2 puffs q.4 hours Amlodipine 10 mg daily Aspirin 81 mg daily atorvastatin 20 mg daily Chlorthalidone 25 mg daily Docusate sodium 100 mg b.i.d. p.r.n. constipation Hydroxyzine 25 mg HS p.r.n. Potassium chloride ER 10 mEq daily Sleep Procedure A full night polysomnogram using the Lively multi-channel system recorded the standard physiologic parameters including EEG, EOG, submentalis EMG, anterior tibialis EMG, EKG, body position, nasal and oral airflow using nasal pressure sensor and thermistor. Respiratory parameters of chest and abdominal movements were recorded with Respiratory Inductance Plethysmography belts. Oxygen saturation was recorded by pulse oximetry. Video monitoring was also performed. Sleep stages, periodic limb movements, and EEG arousals were scored in 30 second epochs according to the criteria of the AASM Scoring Manual. The Apnea-Hypopnea Index was calculated using CMS guidelines for definition of hypopnea while scoring respiratory events. Her son, You brought his mother to the sleep lab for split night study but she did not meet criteria early enough in the night so this was conducted as a full night basic nocturnal polysomnogram. You stated that he needed to be in the room with his mother due to her confusion and sometimes anxiety. He also stated that she sometimes becomes agitated when she is in an unfamiliar place and when she is with strangers. He stayed in the room with the patient. The radio electronics technician did not have the patient perform bio calibrations due to her intermittent confusion the patient pulled wires off during the night, the tech was in and out of the room to reapply these leads.. The patient had little snoring with obstructive hypopneas 1 asleep. She had limited sleep during the study. Around 4:44 a.m., her son open the door and asked to stop the study to take her to the emergency department for her asthma/COPD. Sleep Architecture The total recording time was 367.4 minutes. The total sleep time was 109.5 minutes. Sleep latency was 14.2 minutes. REM latency was not measure as she had no REM. Sleep efficiency was 29.8%. The patient had 21 awakenings for an awakening index of 11.5. Wake after sleep onset time was 243.5 minutes. The patient spent 28.0 minutes, 25.6% of total sleep time in Stage N1. The patient spent 81.5 minutes, 74.4% in Stage N2. The patient spent no time in Stage N3 of Stage REM. Respiratory Analysis The patient had 7 hypopneas, no obstructive, mixed, or central apneas for an overall Apnea Hypopnea Index of 3.8. The REM Apnea Hypopnea Index was 0. The NREM Apnea Hypopnea Index was 3.8. The patient had a Central Apnea Hypopnea Index of 0. There were no Respiratory Effort Related Arousals. The Respiratory Disturbance Index is 4.9 events per hour. There was no evidence of Evgeny-Montiel Respirations. Arousals There were 57 total arousals for an arousal index of 31.2. There were 20 spontaneous arousals for an index of 11.0. There were 5 arousals due to respiratory events for an index of 2.7. There were 22 arousals due to periodic limb movements for an index of 12.1. There were 10 arousals due to isolated limb movements for an index of 5.5. Periodic Limb Movements The patient had 14 isolated limb movements with an index of 7.7. The patient had 64 periodic limb movements with an index of 35.1. Patient had a total of 78 limb movements with a total limb movement index of 42.7. Oximetry Data Average oxygen saturation of 94.4% in sleep with a minimum oxygen saturation of 89% and a maximum oxygen saturation of 99%. The patient had 10 oxygen desaturations that were 4% or greater resulting in an Oxygen Desaturation Index of 5.5. The patient spent no time with an oxygen saturation below 88%. Snoring Profile Snoring was mild to moderate. Cardiac Profile EKG showed normal sinus rhythm with an average pulse rate of 80 bpm with a minimum pulse of rate of 60 bpm and a maximum pulse rate of 104 bpm. Sinus arrhythmia was noted. ? EEG Profile Unremarkable, no evidence of seizures. Assessment and Plan Assessment and Plan (1) PLMD (periodic limb movement disorder): Code(s): G47.61 - Periodic limb movement disorder Status: Acute Assessment and Plan: This basic nocturnal polysomnogram on 09/11/2024 does not show sleep disordered breathing. The apnea-hypopnea index was 3.8 and the lowest saturation was 89%. This was not a high quality study because the patient had such a low sleep efficiency, 29.8%, was awake most of the night. She left earlier than anticipated, son requested to leave at 4:44 due to coughing and having some asthma/COPD symptoms. She had a periodic limb movement index of 35.1, a PLM arousal index of 12.1. Her sleep history is significant for occasional kicking and occasionally having crawling and aching feelings in her legs. Consider checking a ferritin level, and if this is < 75 ng,dL, conisder iron supplementation which might decreased limb movements during sleep as well as uncomfortable feelings in her legs before sleep. Data The data obtained during this sleep study is adequate for interpretation. Certification This sleep study has been reviewed by a board certified sleep medicine physician.
[2024-10-03 16:33] VITALS: BMI 27.3
== END 2024-09-12 07:04 | disposition home or self-care (01) ==
LOC: ANHCSM 07:58
PROVIDERS: Visit Provider Nurse Practitioner
DX: G47.33 Obstructive sleep apnea (adult) (pediatric) (principal); G47.34 Idiopathic sleep related nonobstructive alveolar hypoventilation; G47.61 Periodic limb movement disorder
CPT/HCPCS: 95810